=== PATIENT | female | born 1940 | race African-American/Black ===

== ENCOUNTER → 2017-04-17 | Outpatient (CLI) | payer MEDICARE ==
--- NOTE | 2017-04-18 08:42 | MM ---
Reason for exam: screening (asymptomatic). Last mammogram was performed 1 year and 1 month ago. History: Patient is postmenopausal and has history of other cancer at age 74. Family history of breast cancer in maternal cousin at age 68. Took hormonal contraceptives for 7 years beginning at age 21. MG Screening Mammo w CAD Bilateral CC and MLO view(s) were taken. Prior study comparison: March 21, 2016, bilateral MG screening mammo w CAD. March 20, 2015, bilateral MG screening mammo w CAD. March 18, 2014, bilateral MG screening mammo w CAD. There are scattered fibroglandular densities. Finding #1: There is a 5 mm circumscribed round mass in the outer quadrant, middle position of the left breast. Finding #2: There are few typically benign round calcifications in both breasts. New finding since March 21, 2016, March 20, 2015, and March 18, 2014. ASSESSMENT: Incomplete: need additional imaging evaluation, BI-RAD 0 RECOMMENDATION: Special view mammogram and ultrasound of the left breast. [facility] will attempt to contact patient to return for supplemental views and ultrasound.
== END | disposition home or self-care (01) ==
LOC: RADMAMWWP 07:34
PROVIDERS: ATTEND Family Medicine
DX: Z12.31 Encounter for screening mammogram for malignant neoplasm of breast (principal)

== ENCOUNTER → 2017-04-19 | Outpatient (CLI) | payer MEDICARE ==
--- NOTE | 2017-04-19 09:38 | MM ---
Reason for exam: additional evaluation requested from abnormal screening. Last mammogram was performed less than 1 month ago. History: Patient is postmenopausal and has history of other cancer at age 74. Family history of breast cancer in maternal cousin at age 68. Took hormonal contraceptives for 7 years beginning at age 21. Physical Findings: Nurse did not find any significant physical abnormalities on exam. MG Work Up Mamm w CAD LT CC, MLO, ML, and spot compression CC view(s) were taken of the left breast. Prior study comparison: April 17, 2017, bilateral MG screening mammo w CAD. March 21, 2016, bilateral MG screening mammo w CAD. March 20, 2015, bilateral MG screening mammo w CAD. Finding: There is a 5-6 mm circumscribed round mass in the upper outer quadrant, middle position of the left breast. These results were verbally communicated with the patient and result sheet given to the patient on 04/19/17. ASSESSMENT: Incomplete: need additional imaging evaluation, BI-RAD 0 RECOMMENDATION: Ultrasound of the left breast.
--- NOTE | 2017-04-21 08:58 | USB ---
Reason for exam: additional evaluation requested from abnormal screening. History: Patient is postmenopausal and has history of other cancer at age 74. Family history of breast cancer in maternal cousin at age 68. Took hormonal contraceptives for 7 years beginning at age 21. US Breast Workup Limited LT Left breast ultrasound demonstrates no cystic or solid lesion seen. These results were verbally communicated with the patient and result sheet given to the patient on 04/19/17. ASSESSMENT: Probably benign, BI-RAD 3 RECOMMENDATION: Follow-up diagnostic mammogram of the left breast in 6 months.
== END | disposition home or self-care (01) ==
LOC: RADMAMWWP 08:08
PROVIDERS: ATTEND Family Medicine
DX: R92.8 Other abnormal and inconclusive findings on diagnostic imaging of breast (principal)
CPT/HCPCS: 76642; G0206

== ENCOUNTER → 2017-10-18 | Outpatient (CLI) | payer MEDICARE ==
--- NOTE | 2017-10-18 08:49 | MM ---
Reason for exam: follow-up at short interval from prior study. Last mammogram was performed 6 months ago. History: Patient is postmenopausal and has history of other cancer at age 74. Family history of breast cancer in maternal cousin at age 68. Took hormonal contraceptives for 7 years beginning at age 21. Physical Findings: Nurse did not find any significant physical abnormalities on exam. MG Diagnostic Mammo LT w CAD CC and MLO view(s) were taken of the left breast. Prior study comparison: April 19, 2017, left breast MG work up mamm w CAD LT. April 17, 2017, bilateral MG screening mammo w CAD. There are scattered fibroglandular densities. Previous circumscribed mass upper outer quadrant has resolved, probably a cyst that has involuted. Subareolar asymmetric density stable from 2014. These results were verbally communicated with the patient and result sheet given to the patient on 10/18/17. ASSESSMENT: Benign, BI-RAD 2 RECOMMENDATION: Return to routine screening mammogram schedule for both breasts. Back on schedule.
== END | disposition home or self-care (01) ==
LOC: RADMAMWWP 08:08
PROVIDERS: ATTEND Family Medicine
DX: R92.8 Other abnormal and inconclusive findings on diagnostic imaging of breast (principal)
CPT/HCPCS: 77065

== ENCOUNTER → 2018-04-20 | Outpatient (CLI) | payer MEDICARE ==
--- NOTE | 2018-04-20 10:13 | CT ---
EXAMINATION TYPE: CT ChestAbdPelvis w con DATE OF EXAM: 04/20/2018 COMPARISON: 12/30/2015 HISTORY: Restaging of Endometrial CA CT DLP: 1125.8 mGycm CONTRAST: CT scan of the chest, abdomen and pelvis is performed with Oral Contrast and with IV Contrast, patien t injected with 80 mL of Isovue 300. CT Chest: LUNGS: The lungs are clear and free of infiltrate or atelectasis. No pulmonary nodule or mass is det ected. No pleural effusion or CT evidence of interstitial lung disease. MEDIASTINUM: Thoracic aorta is of normal caliber. The heart is not enlarged. No evidence for media stinal mass or adenopathy. HILAR STRUCTURES: No evidence for mass. No hilar adenopathy is appreciated. OTHER: No significant abnormality. CONTRAST CT ABDOMEN AND PELVIS FINDINGS: LIVER/GB: Mild hepatic steatosis. No calcified gallstones. No space occupying hepatic lesion. Bili lorne tree is of normal caliber. PANCREAS: No inflammation. No distinct mass. SPLEEN: No splenic enlargement. No lesion seen. ADRENALS: No nodule. No thickening. KIDNEYS/BLADDER: No hydronephrosis. No nephrolithiasis. No disctinct renal mass. BOWEL: Normal appendix. Normal bowel caliber. No inflammation. GENITAL ORGANS: Hysterectomy changes noted. No evidence for recurrent or residual mass. Vaginal cuff appears unremarkable. LYMPH NODES: No greater than 1cm abdominal or pelvic lymph nodes are appreciated. AORTA: No significant abnormality. OSSEOUS STRUCTURES: No significant abnormality is seen. OTHER: No significant additional abnormality is seen. IMPRESSION: 1. No evidence for metastatic disease. 2. Fatty liver.
== END ==
LOC: RADCTMAIN 07:39
PROVIDERS: ATTEND Obstetrics & Gynecology
DX: C54.1 Malignant neoplasm of endometrium (principal); K76.0 Fatty (change of) liver, not elsewhere classified
CPT/HCPCS: 82565; 84520; 71260; 74177; 36415; Q9967

== ENCOUNTER → 2018-07-20 | Outpatient (CLI) | payer MEDICARE ==
--- NOTE | 2018-07-24 09:32 | MM ---
Reason for exam: screening (asymptomatic). Last mammogram was performed 9 months ago. History: Patient is postmenopausal and has history of other cancer at age 74. Family history of breast cancer in maternal cousin at age 68. Took hormonal contraceptives for 7 years beginning at age 21. Physical Findings: A clinical breast exam by your physician is recommended on an annual basis and results should be correlated with mammographic findings. MG Screening Mammo w CAD Bilateral CC and MLO view(s) were taken. Prior study comparison: October 18, 2017, left breast MG diagnostic mammo LT w CAD. April 19, 2017, left breast MG work up mamm w CAD LT. There are scattered fibroglandular densities. No significant changes when compared with prior studies. ASSESSMENT: Negative, BI-RAD 1 RECOMMENDATION: Routine screening mammogram of both breasts in 1 year.
== END | disposition home or self-care (01) ==
LOC: RADMAMWWP 13:35
PROVIDERS: ATTEND Family Medicine
DX: Z12.31 Encounter for screening mammogram for malignant neoplasm of breast (principal)
CPT/HCPCS: 77067

== ENCOUNTER 2019-04-13 07:24 | Emergency (ER) | payer MEDICARE ==
[2019-04-13 07:32] VITALS: TEMP 97.7
[2019-04-13] MEDS ORDERED: SODIUM CHLORIDE 0.9% 500 ML 500 ML IV ONE (07:50)
[2019-04-13] MEDS ORDERED: SODIUM CHLORIDE 0.9% 500 ML 500 ML IV STA (07:50)
[2019-04-13] MEDS ORDERED: MECLIZINE 12.5 MG TAB PO STA (07:50)
--- NOTE | 2019-04-13 07:57 | ED ---
General Adult HPI - General Chief complaint: Dizziness Stated complaint: Dizziness Time Seen by Provider: 04/13/19 07:27 Source: patient, RN notes reviewed, old records reviewed Mode of arrival: wheelchair Limitations: no limitations - History of Present Illness Initial comments: 78-year-old female past medical history of hypertension presenting for noni luation of lightheadedness and dizziness. Patient states she woke this morning at approximately 6 AM she stood from bed feeling lightheaded, denies room spinning sensation. She does have previous history of vertigo states this is dissimilar. She denies associated nausea vomiting. No change in appetite or intake. She denies chest pain or dyspnea. She denies palpitations. She denies focal numbness or weakness. Denies vision changes. Denies any abdominal pain. - Related Data Home Medications Medication Instructions Recorded Confirmed Ascorbic Acid [Vitamin C] 500 mg PO DAILY 02/23/15 02/11/18 Atenolol/Chlorthalidone 1 tab PO DAILY 02/23/15 02/11/18 [Atenolol-Chlorthalidone 100-25] Ginkgo 1 tab PO DAILY 02/23/15 02/11/18 Vitamin B-12 1 tab PO DAILY 02/23/15 02/11/18 Atorvastatin [Lipitor] 40 mg PO HS 02/11/18 02/11/18 Cholecalciferol [Vitamin D3] 1,000 unit PO DAILY 02/11/18 02/11/18 Ubidecarenone [Co Q-10] 100 mg PO DAILY 02/11/18 02/11/18 Previous Rx's Medication Instructions Recorded Ibuprofen [Motrin] 600 mg PO Q6HR PRN #40 tab 02/24/15 Meclizine [Antivert] 25 mg PO TID PRN #21 tab 04/13/19 Allergies Allergy/AdvReac Type Severity Reaction Status Date / Time Penicillins Allergy Rash/Hives Verified 04/13/19 07:28 Review of Systems ROS Statement: Those systems with pertinent positive or pertinent negative responses have been documented in the HPI. ROS Other: All systems not noted in ROS Statement are negative. Constitutional: Denies: fever, chills Eyes: Denies: vision change ENT: Denies: ear pain, congestion Respiratory: Denies: dyspnea Cardiovascular: Denies: chest pain Gastrointestinal: Denies: abdominal pain, nausea, vomiting Neurological: Denies: headache, numbness, paresthesias Past Medical History Past Medical History: Hypertension, Osteoarthritis (OA) Additional Past Medical History / Comment(s): Bursitis in right shoulder , OA in the Left knee History of Any Multi-Drug Resistant Organisms: None Reported Past Surgical History: Hysterectomy, Tubal Ligation Past Anesthesia/Blood Transfusion Reactions: No Reported Reaction Past Psychological History: Anxiety Smoking Status: Never smoker Past Alcohol Use History: Occasional Past Drug Use History: None Reported - Past Family History Mother Additional Family Medical History / Comment(s): PNA, TB Father Family Medical History: No Reported History General Exam Limitations: no limitations General appearance: alert, in no apparent distress Head exam: Present: atraumatic, normocephalic Eye exam: Present: normal appearance, PERRL, EOMI ENT exam: Present: mucous membranes moist Neck exam: Present: normal inspection. Absent: tenderness, meningismus Respiratory exam: Present: normal lung sounds bilaterally. Absent: respiratory distress, wheezes, rales Cardiovascular Exam: Present: regular rate, normal rhythm, normal heart sounds GI/Abdominal exam: Present: soft. Absent: distended, tenderness, guarding Extremities exam: Present: normal inspection, normal capillary refill. Absent: pedal edema Neurological exam: Present: alert, oriented X3, CN II-XII intact, other (Normal [id number], normal finger to nose bilaterally.). Absent: motor sensory deficit Psychiatric exam: Present: normal affect, normal mood Course Vital Signs 04/13/19 04/13/19 04/13/19 07:28 07:40 08:00 Temperature 97.7 F Pulse Rate 97 92 Respiratory 18 30 H 15 Rate Blood Pressure 158/85 166/77 O2 Sat by Pulse 99 98 Oximetry 04/13/19 08:30 Temperature Pulse Rate 78 Respiratory 10 L Rate Blood Pressure 166/77 O2 Sat by Pulse 97 Oximetry - Reevaluation(s) Reevaluation #1: 04/13/19 09:03 Patient reevaluated, resting comfortably, asymptomatic no complaints. EKG Findings - EKG Comments: EKG Findings:: EKG: Normal sinus rhythm, rate of 92, CA interval 160, QRS duration 98, QTC 469, no ST segment elevation or depression. Medical Decision Making - Medical Decision Making 78-year-old female with an episode of lightheadedness. Patient did describe slight positional component suggestive of vertigo, symptoms resolved at the time my initial evaluation. She has previous history of vertigo although states this was somewhat different. No chest pain or palpitations. No focal numbness or weakness. EKG is normal sinus rhythm. Laboratory studies reveal normal CBC, normal electrolytes, mild creatinine elevation of 1.16 otherwise unremarkable laboratory testing. Head CT is obtained, shows age-related changes with no acute process. Chest x-ray showing left lung atelectasis, no concern for pneumonia or any additional acute process at this time. Patient feels better and remains asymptomatic while in the emergency department. Will be prescribed Antivert, encouraged to maintain oral hydration, return with worsening or changing symptoms. - Lab Data Result diagrams: 04/13/19 07:55 04/13/19 07:55 Lab Results 04/13/19 04/13/19 04/13/19 Range/Units 07:55 07:55 07:55 WBC 4.9 (3.8-10.6) k/uL RBC 4.16 (3.80-5.40) m/uL Hgb 11.8 (11.4-16.0) gm/dL Hct 36.4 (34.0-46.0) % MCV 87.4 (80.0-100.0) fL MCH 28.3 (25.0-35.0) pg MCHC 32.4 (31.0-37.0) g/dL RDW 13.5 (11.5-15.5) % Plt Count 238 (150-450) k/uL Neutrophils % 53 % Lymphocytes % 37 % Monocytes % 5 % Eosinophils % 2 % Basophils % 1 % Neutrophils # 2.6 (1.3-7.7) k/uL Lymphocytes # 1.8 (1.0-4.8) k/uL Monocytes # 0.3 (0-1.0) k/uL Eosinophils # 0.1 (0-0.7) k/uL Basophils # 0.0 (0-0.2) k/uL PT 10.9 (9.0-12.0) sec INR 1.0 (<1.2) Sodium 142 (137-145) mmol/L Potassium 4.0 (3.5-5.1) mmol/L Chloride 105 (98-107) mmol/L Carbon Dioxide 26 (22-30) mmol/L Anion Gap 11 mmol/L BUN 25 H (7-17) mg/dL Creatinine 1.16 H (0.52-1.04) mg/dL Est GFR (CKD-EPI)AfAm 53 (>60 ml/min/1.73 sqM) Est GFR (CKD-EPI)NonAf 46 (>60 ml/min/1.73 sqM) Glucose 139 H (74-99) mg/dL Calcium 9.8 (8.4-10.2) mg/dL Total Bilirubin 0.4 (0.2-1.3) mg/dL AST 22 (14-36) U/L ALT 14 (9-52) U/L Alkaline Phosphatase 67 (38-126) U/L Troponin I (0.000-0.034) ng/mL Total Protein 8.2 (6.3-8.2) g/dL Albumin 4.4 (3.5-5.0) g/dL 04/13/19 Range/Units 07:55 WBC (3.8-10.6) k/uL RBC (3.80-5.40) m/uL Hgb (11.4-16.0) gm/dL Hct (34.0-46.0) % MCV (80.0-100.0) fL MCH (25.0-35.0) pg MCHC (31.0-37.0) g/dL RDW (11.5-15.5) % Plt Count (150-450) k/uL Neutrophils % % Lymphocytes % % Monocytes % % Eosinophils % % Basophils % % Neutrophils # (1.3-7.7) k/uL Lymphocytes # (1.0-4.8) k/uL Monocytes # (0-1.0) k/uL Eosinophils # (0-0.7) k/uL Basophils # (0-0.2) k/uL PT (9.0-12.0) sec INR (<1.2) Sodium (137-145) mmol/L Potassium (3.5-5.1) mmol/L Chloride (98-107) mmol/L Carbon Dioxide (22-30) mmol/L Anion Gap mmol/L BUN (7-17) mg/dL Creatinine (0.52-1.04) mg/dL Est GFR (CKD-EPI)AfAm (>60 ml/min/1.73 sqM) Est GFR (CKD-EPI)NonAf (>60 ml/min/1.73 sqM) Glucose (74-99) mg/dL Calcium (8.4-10.2) mg/dL Total Bilirubin (0.2-1.3) mg/dL AST (14-36) U/L ALT (9-52) U/L Alkaline Phosphatase (38-126) U/L Troponin I <0.012 (0.000-0.034) ng/mL Total Protein (6.3-8.2) g/dL Albumin (3.5-5.0) g/dL Disposition Clinical Impression: Dehydration, Vertigo Disposition: HOME SELF-CARE Condition: Good Instructions (If sedation given, give patient instructions): Dizziness (ED), Vertigo (ED) Prescriptions: Meclizine [Antivert] 25 mg PO TID PRN #21 tab PRN Reason: Vertigo Is patient prescribed a controlled substance at d/c from ED?: No Referrals: Solo Hernandez MD [Primary Care Provider] - 1-2 days Time of Disposition: 09:05
[2019-04-13 08:23] LABS: Basophils % (A) 1 %; Eosinophils # (A) 0.1 k/uL (0-0.7); Eosinophils % (A) 2 %; HCT 36.4 % (34.0-46.0); HGB 11.8 gm/dL (11.4-16.0); Lymphocytes # (A) 1.8 k/uL (1.0-4.8); Lymphocytes % (A) 37 %; MCH 28.3 pg (25.0-35.0); MCHC 32.4 g/dL (31.0-37.0); MCV 87.4 fL (80.0-100.0); Monocytes # (A) 0.3 k/uL (0-1.0); Monocytes % (A) 5 %; Neutrophils # (A) 2.6 k/uL (1.3-7.7); Neutrophils % (A) 53 %; Platelet Count 238 k/uL (150-450); RBC 4.16 m/uL (3.80-5.40); RDW 13.5 % (11.5-15.5); WBC 4.9 k/uL (3.8-10.6)
[2019-04-13 08:31] LABS: Prothrombin Time 10.9 sec (9.0-12.0)
[2019-04-13 08:36] LABS: Albumin 4.4 g/dL (3.5-5.0); Calcium 9.8 mg/dL (8.4-10.2); Total Bilirubin 0.4 mg/dL (0.2-1.3); Total Protein 8.2 g/dL (6.3-8.2)
--- NOTE | 2019-04-13 08:37 | CT ---
EXAMINATION TYPE: CT brain wo con DATE OF EXAM: 04/13/2019 COMPARISON: Previous study dated 02/11/2010. HISTORY: Dizziness today CT DLP: 1113.4 mGycm Automated exposure control for dose reduction was used. FINDINGS: There is physiologic calcification of basal ganglia. Central structures are midline. There is no evidence of hydrocephalus. No acute focal lesion, mass ef fect or midline shift is seen. I do not see evidence of intracranial blood. There is vascular calcification. Visualized portions of the paranasal sinuses and mastoids are clear. The bony calvarium is intact. IMPRESSION: 1. NO ACUTE INTRACRANIAL ABNORMALITY. 2. DEGENERATIVE CHANGE. 3. VASCULAR CALCIFICATION.
--- NOTE | 2019-04-13 08:39 | XR ---
EXAMINATION TYPE: XR chest 2V DATE OF EXAM: 04/13/2019 HISTORY: near sycope. REFERENCE: Previous study dated 02/10/2018. FINDINGS: There is some scarring at the left lung base. Visualized portions of the lungs are otherwis e clear. Pleural space are clear. The heart is not enlarged. IMPRESSION: SCARRING VERSUS CHRONIC ATELECTASIS, LEFT LUNG BASE.
[2019-04-13 10:01] VITALS: BP 139/79; PULSE 76; RESP 18
== END 2019-04-13 09:42 | disposition home or self-care (01) ==
LOC: EC 07:24
DX: E86.0 Dehydration (principal); R42 Dizziness and giddiness; J98.11 Atelectasis; I10 Essential (primary) hypertension; F41.9 Anxiety disorder, unspecified; Z79.899 Other long term (current) drug therapy; Z88.0 Allergy status to penicillin
CPT/HCPCS: 36415; 70450; 71046; 80053; 84484; 85025; 85610; 93005; 96360; 99285

== ENCOUNTER 2023-04-08 12:21 | Emergency (ER) | payer MEDICARE ==
[2023-04-08 12:41] VITALS: TEMP 98.3
--- NOTE | 2023-04-08 12:51 | ED ---
General Adult HPI - General Chief complaint: Recheck/Abnormal Lab/Rx Stated complaint: light headed Time Seen by Provider: 04/08/23 12:35 Source: patient, RN notes reviewed, old records reviewed Mode of arrival: ambulatory Limitations: no limitations - History of Present Illness Initial comments: This is an 82-year-old female presents emergency department stating that over the last month she's become more more fatigued. Patient states she also has be en told her hemoglobin is been low. Patient states she wants commit to get a second opinion because she continues to have these symptoms and the progressive. Patient also states she's noticed lately that her hands are very cold during the day but not at night. She doesn't want a cold there is no pain in the hands no discoloration of the hands or fingers. Patient denies any recent fever chills per patient denies any difficulty breathing shortness of breath per patient denies any chest pain. Patient denies lightheadedness but states occasionally she is a little dizzy and she does have a history of vertigo. Patient denies any abdominal pain patient denies nausea - Related Data Home Medications Medication Instructions Recorded Confirmed Atenolol/Chlorthalidone 1 tab PO DAILY PRN 02/23/15 04/08/23 [Atenolol-Chlorthalidone 100-25] Ascorbic Acid [Vitamin C] 1,000 mg PO DAILY 04/08/23 04/08/23 Cholecalciferol [Vitamin D3 (25 25 mcg PO DAILY 04/08/23 04/08/23 Mcg = 1000 Iu)] Cyanocobalamin (Vitamin B-12) 1,000 mcg PO DAILY 04/08/23 04/08/23 [Vitamin B-12] Floradix Supplement 10 ml PO DAILY 04/08/23 Allergies Allergy/AdvReac Type Severity Reaction Status Date / Time Penicillins Allergy Rash/Hives/ Verified 04/08/23 12:58 Swelling Review of Systems ROS Statement: Those systems with pertinent positive or pertinent negative responses have been documented in the HPI. ROS Other: All systems not noted in ROS Statement are negative. Past Medical History Past Medical History: Hypertension, Osteoarthritis (OA) Additional Past Medical History / Comment(s): Bursitis in right shoulder , OA in the Left knee History of Any Multi-Drug Resistant Organisms: None Reported Past Surgical History: Hysterectomy, Tubal Ligation Past Anesthesia/Blood Transfusion Reactions: No Reported Reaction Past Psychological History: Anxiety Past Alcohol Use History: Occasional Past Drug Use History: None Reported - Past Family History Mother Additional Family Medical History / Comment(s): PNA, TB Father Family Medical History: No Reported History General Exam - General Exam Comments Initial Comments: GENERAL: Patient is well-developed and well-nourished. Patient is nontoxic and well- hydrated and is in no acute distress. ENT: Neck is soft and supple. No significant lymphadenopathy is noted. Oropharynx is clear. Moist mucous membranes. Neck has full range of motion without eliciting any pain. EYES: The sclera were anicteric and conjunctiva were pink and moist. Extraocular movements were intact and pupils were equal round and reactive to light. Eye lids were unremarkable. PULMONARY: Unlabored respirations. Good breath sounds bilaterally. No audible rales rhonchi or wheezing was noted. CARDIOVASCULAR: There is a regular rate and rhythm without any murmurs gallops or rubs. ABDOMEN: Soft and nontender with normal bowel sounds. SKIN: Skin is clear with no lesions or rashes and otherwise unremarkable. NEUROLOGIC: Patient is alert and oriented x3. Cranial nerves II through XII are grossly intact. Motor and sensory are also intact. Normal speech, volume and content. Symmetrical smile. MUSCULOSKELETAL: Normal extremities with adequate strength and full range of motion. No lower extremity swelling or edema. No calf tenderness. Patient has good radial pulses bilaterally LYMPHATICS: No significant lymphadenopathy is noted PSYCHIATRIC: Normal psychiatric evaluation. Limitations: no limitations Course Vital Signs 04/08/23 04/08/23 04/08/23 12:29 13:55 14:00 Temperature 98.3 F Pulse Rate 91 74 78 Respiratory 16 18 10 L Rate Blood Pressure 179/79 136/79 136/79 O2 Sat by Pulse 99 99 100 Oximetry 04/08/23 15:00 Temperature Pulse Rate 72 Respiratory 14 Rate Blood Pressure 155/68 O2 Sat by Pulse 99 Oximetry Medical Decision Making - Medical Decision Making EKG was interpreted by myself. EKG shows a sinus rhythm at 70 bpm NV interval 101 QRS is 92 QT interval 370 QTC is 404. Patient's EKG shows no ST segment elevation or depression Was pt. sent in by a medical professional or institution (, PA, RESIDENT PROGRAMS ASSISTANT, urgent care, hospital, or usp...) When possible be specific @ -No Did you speak to anyone other than the patient for history (EMS, parent, family, police, friend...)? What history was obtained from this source @ -No Did you review nursing and triage notes (agree or disagree)? Why? @ -I reviewed and agree with nursing and triage notes Were old charts reviewed (outside hosp., previous admission, EMS record, old EKG, old radiological studies, urgent care reports/EKG's, usp records)? Report findings @ -I reviewed old charts and old lab work on this patient Differential Diagnosis (chest pain, altered mental status, abdominal pain women, abdominal pain men, vaginal bleeding, weakness, fever, dyspnea, syncope, headache, dizziness, GI bleed, back pain, seizure, CVA, palpatations, mental health, musculoskeletal)? @ -Differential Weakness: Hypoglycemia, shock, sepsis, hyponatremia, anemia, infection, [place], ETOH, adverse medicine reaction, overdose, stroke, this is not meant to be an all-inclusive list. EKG interpreted by me (3pts min.). @ -As above X-rays interpreted by me (1pt min.). @ -None done CT interpreted by me (1pt min.). @ -None done U/S interpreted by me (1pt. min.). @ -None done What testing was considered but not performed or refused? (CT, X-rays, U/S, labs)? Why? @ -None What meds were considered but not given or refused? Why? @ -None Did you discuss the management of the patient with other professionals (professionals i.e. , PA, RESIDENT PROGRAMS ASSISTANT, lab, RT, psych nurse, clinical social work aide, dredge mate, teacher, seismology technical officer, case packer and sealer)? Give summary @ -No Was smoking cessation discussed for >3mins.? @ -No Was critical care preformed (if so, how long)? @ -No Were there social determinants of health that impacted care today? How? (Homelessness, low income, unemployed, alcoholism, drug addiction, transportation, low edu. Level, literacy, decrease access to med. care, custodial, rehab)? @ -No Was there de-escalation of care discussed even if they declined (Discuss DNR or withdrawal of care, Hospice)? DNR status @ -No What co-morbidities impacted this encounter? (DM, HTN, Smoking, COPD, CAD, Cancer, CVA, ARF, Chemo, Hep., AIDS, mental health diagnosis, sleep apnea, morbid obesity)? @ -None Was patient admitted / discharged? Hospital course, mention meds given and route, prescriptions, significant lab abnormalities, going to OR and other pertinent info. @ -I evaluated the patient I ordered labwork all of which was normal. Patient was able to get up ambulate walk around the ER without problem she's never any d istress. Patient continued to complain about her cold hands however he told she'll follow-up with primary medical care doctor because she had good cap refill and good pulses and good sensation no swelling no redness and at this time we did not have specific answers to why they were always cold. Patient was also worried that her hemoglobin was low are testing showed it was within normal range Undiagnosed new problem with uncertain prognosis? @ -No Drug Therapy requiring intensive monitoring for toxicity (Heparin, Nitro, Insulin, Cardizem)? @ -No Were any procedures done? @ -No Diagnosis/symptom? @ -Weakness Acute, or Chronic, or Acute on Chronic? @ -Acute Uncomplicated (without systemic symptoms) or Complicated (systemic symptoms)? @ -Uncomplicated Side effects of treatment? @ -No Exacerbation, Progression, or Severe Exacerbation? @ -No Poses a threat to life or bodily function? How? (Chest pain, USA, [place], pneumonia, PE, COPD, DKA, ARF, appy, cholecystitis, CVA, Diverticulitis, Homicidal, Suicidal, threat to staff... and all critical care pts) @ -No - Lab Data Result diagrams: 04/08/23 12:51 04/08/23 12:51 Lab Results 04/08/23 04/08/23 04/08/23 Range/Units 12:51 12:51 12:51 WBC 6.1 (3.8-10.6) k/uL RBC 4.04 (3.80-5.40) m/uL Hgb 11.6 (11.4-16.0) gm/dL Hct 35.7 (34.0-46.0) % MCV 88.4 (80.0-100.0) fL MCH 28.8 (25.0-35.0) pg MCHC 32.5 (31.0-37.0) g/dL RDW 13.7 (11.5-15.5) % Plt Count 275 (150-450) k/uL MPV 7.6 Neutrophils % 54 % Lymphocytes % 35 % Monocytes % 6 % Eosinophils % 2 % Basophils % 1 % Neutrophils # 3.3 (1.3-7.7) k/uL Lymphocytes # 2.1 (1.0-4.8) k/uL Monocytes # 0.4 (0-1.0) k/uL Eosinophils # 0.1 (0-0.7) k/uL Basophils # 0.0 (0-0.2) k/uL Sodium 136 L (137-145) mmol/L Potassium 4.3 (3.5-5.1) mmol/L Chloride 101 (98-107) mmol/L Carbon Dioxide 25 (22-30) mmol/L Anion Gap 10 mmol/L BUN 20 H (7-17) mg/dL Creatinine 0.92 (0.52-1.04) mg/dL Est GFR (CKD-EPI)AfAm 68 (>60 ml/min/1.73 sqM) Est GFR (CKD-EPI)NonAf 59 (>60 ml/min/1.73 sqM) Glucose 170 H (74-99) mg/dL Calcium 9.7 (8.4-10.2) mg/dL Magnesium 2.0 (1.6-2.3) mg/dL Total Bilirubin 0.4 (0.2-1.3) mg/dL AST 26 (14-36) U/L ALT 16 (4-34) U/L Alkaline Phosphatase 56 (38-126) U/L Total Protein 8.2 (6.3-8.2) g/dL Albumin 4.5 (3.5-5.0) g/dL TSH 0.942 (0.465-4.680) mIU/L Urine Color Yellow Urine Appearance Clear (Clear) Urine pH 5.0 (5.0-8.0) Ur Specific [place] 1.019 (1.001-1.035) Urine Protein Trace H (Negative) Urine Glucose (UA) Negative (Negative) Urine Ketones Negative (Negative) Urine Blood Negative (Negative) Urine Nitrite Negative (Negative) Urine Bilirubin Negative (Negative) Urine Urobilinogen <2.0 (<2.0) mg/dL Ur Leukocyte Esterase Negative (Negative) Coronavirus (PCR) (Not Detectd) 04/08/23 Range/Units 12:55 WBC (3.8-10.6) k/uL RBC (3.80-5.40) m/uL Hgb (11.4-16.0) gm/dL Hct (34.0-46.0) % MCV (80.0-100.0) fL MCH (25.0-35.0) pg MCHC (31.0-37.0) g/dL RDW (11.5-15.5) % Plt Count (150-450) k/uL MPV Neutrophils % % Lymphocytes % % Monocytes % % Eosinophils % % Basophils % % Neutrophils # (1.3-7.7) k/uL Lymphocytes # (1.0-4.8) k/uL Monocytes # (0-1.0) k/uL Eosinophils # (0-0.7) k/uL Basophils # (0-0.2) k/uL Sodium (137-145) mmol/L Potassium (3.5-5.1) mmol/L Chloride (98-107) mmol/L Carbon Dioxide (22-30) mmol/L Anion Gap mmol/L BUN (7-17) mg/dL Creatinine (0.52-1.04) mg/dL Est GFR (CKD-EPI)AfAm (>60 ml/min/1.73 sqM) Est GFR (CKD-EPI)NonAf (>60 ml/min/1.73 sqM) Glucose (74-99) mg/dL Calcium (8.4-10.2) mg/dL Magnesium (1.6-2.3) mg/dL Total Bilirubin (0.2-1.3) mg/dL AST (14-36) U/L ALT (4-34) U/L Alkaline Phosphatase (38-126) U/L Total Protein (6.3-8.2) g/dL Albumin (3.5-5.0) g/dL TSH (0.465-4.680) mIU/L Urine Color Urine Appearance (Clear) Urine pH (5.0-8.0) Ur Specific [place] (1.001-1.035) Urine Protein (Negative) Urine Glucose (UA) (Negative) Urine Ketones (Negative) Urine Blood (Negative) Urine Nitrite (Negative) Urine Bilirubin (Negative) Urine Urobilinogen (<2.0) mg/dL Ur Leukocyte Esterase (Negative) Coronavirus (PCR) Not Detected (Not Detectd) Disposition Clinical Impression: Weakness Disposition: HOME SELF-CARE Is patient prescribed a controlled substance at d/c from ED?: No Referrals: Solo Hernandez MD [Primary Care Provider] - 1-2 days
[2023-04-08 13:24] LABS: Basophils % (A) 1 %; Eosinophils # (A) 0.1 k/uL (0-0.7); Eosinophils % (A) 2 %; HCT 35.7 % (34.0-46.0); HGB 11.6 gm/dL (11.4-16.0); Lymphocytes # (A) 2.1 k/uL (1.0-4.8); Lymphocytes % (A) 35 %; MCH 28.8 pg (25.0-35.0); MCHC 32.5 g/dL (31.0-37.0); MCV 88.4 fL (80.0-100.0); Mean Platelet Volume 7.6; Monocytes # (A) 0.4 k/uL (0-1.0); Monocytes % (A) 6 %; Neutrophils # (A) 3.3 k/uL (1.3-7.7); Neutrophils % (A) 54 %; Platelet Count 275 k/uL (150-450); RBC 4.04 m/uL (3.80-5.40); RDW 13.7 % (11.5-15.5); WBC 6.1 k/uL (3.8-10.6)
[2023-04-08 13:40] LABS: ALT 16 U/L (4-34); AST 26 U/L (14-36); African American GFR (CKD) 68 (>60 ml/min/1.73 sqM); Albumin 4.5 g/dL (3.5-5.0); Alkaline Phosphatase 56 U/L (38-126); Anion Gap 10 mmol/L; Blood Urea Nitrogen 20 mg/dL (7-17); Calcium 9.7 mg/dL (8.4-10.2); Carbon Dioxide 25 mmol/L (22-30); Chloride 101 mmol/L (98-107); Glucose 170 mg/dL (74-99); Non-African American GFR(CKD) 59 (>60 ml/min/1.73 sqM); Potassium 4.3 mmol/L (3.5-5.1); Sodium 136 mmol/L (137-145); Total Bilirubin 0.4 mg/dL (0.2-1.3); Total Protein 8.2 g/dL (6.3-8.2)
[2023-04-08 15:24] VITALS: BP 155/68; PULSE 72; RESP 14
[2023-04-08 15:49] LABS: Appearance,Urine Clear (Clear); Bilirubin,Urine Negative (Negative); Blood,Urine Negative (Negative); Color,Urine Yellow; Glucose,Urine (UA) Negative (Negative); Ketones,Urine Negative (Negative); Leukocyte Esterase,Urine Negative (Negative); Nitrite,Urine Negative (Negative); Protein,Urine Trace (Negative); Specific Gravity,Urine 1.019 (1.001-1.035); Urobilinogen,Urine <2.0 mg/dL (<2.0)
== END 2023-04-08 15:11 | disposition home or self-care (01) ==
LOC: EC 12:21
DX: R53.1 Weakness (principal); I10 Essential (primary) hypertension; Z86.59 Personal history of other mental and behavioral disorders; Z20.822 Contact with and (suspected) exposure to COVID-19; Z79.899 Other long term (current) drug therapy; Z88.0 Allergy status to penicillin
CPT/HCPCS: 36415; 80053; 81003; 83735; 84443; 85025; 87635; 93005; 99284

== ENCOUNTER 2023-05-17 11:43 | Emergency (ER) | payer MEDICARE ==
--- NOTE | 2023-05-17 12:32 | ED ---
General Adult HPI - General Chief complaint: Dizziness Stated complaint: dizzy has anemia Time Seen by Provider: 05/17/23 12:05 Source: patient, RN notes reviewed, old records reviewed Mode of arrival: ambulatory Limitations: no limitations - History of Present Illness Initial comments: This is an 82-year-old female presents emergency Department complaining that over the last few months she's been getting more more tired and fatigued she was told she was anemic and was seen in the emergency department recently. Patient states that she was recently told she was anemic as her hemoglobin was in the 10 range. Patient denies any blood per rectum. Patient states she is feeling fine as long she is lying down which gets up and moves around she feels more fatigued. Patient states this occasionally she feels a little lightheaded. Patient denies any headache patient is chest pain or palpitations. Patient has any difficulty breathing shortness of breath per patient denies any fever chills. Patient denies abdominal pain patient denies nausea or diarrhea - Related Data Home Medications Medication Instructions Recorded Confirmed Atenolol/Chlorthalidone 1 tab PO DAILY PRN 02/23/15 05/17/23 [Atenolol-Chlorthalidone 100-25] Ascorbic Acid [Vitamin C] 1,000 mg PO DAILY 04/08/23 05/17/23 Cholecalciferol [Vitamin D3 (25 25 mcg PO DAILY 04/08/23 05/17/23 Mcg = 1000 Iu)] Cyanocobalamin (Vitamin B-12) 1,000 mcg PO DAILY 04/08/23 05/17/23 [Vitamin B-12] Floradix Supplement 10 ml PO DAILY 04/08/23 05/17/23 Ferrous Sulfate [Iron (65 MG 325 mg PO Q2D 05/17/23 05/17/23 Elemental)] Allergies Allergy/AdvReac Type Severity Reaction Status Date / Time Penicillins Allergy Rash/Hives/ Verified 05/17/23 14:01 Swelling Review of Systems ROS Statement: Those systems with pertinent positive or pertinent negative responses have been documented in the HPI. ROS Other: All systems not noted in ROS Statement are negative. Past Medical History Past Medical History: Hypertension, Osteoarthritis (OA) Additional Past Medical History / Comment(s): Bursitis in right shoulder , OA in the Left knee History of Any Multi-Drug Resistant Organisms: None Reported Past Surgical History: Hysterectomy, Tubal Ligation Past Anesthesia/Blood Transfusion Reactions: No Reported Reaction Past Psychological History: Anxiety Smoking Status: Never smoker Past Alcohol Use History: Occasional Past Drug Use History: None Reported - Past Family History Mother Additional Family Medical History / Comment(s): PNA, TB Father Family Medical History: No Reported History General Exam - General Exam Comments Initial Comments: GENERAL: Patient is well-developed and well-nourished. Patient is nontoxic and well-hyd rated and is in no acute distress. ENT: Neck is soft and supple. No significant lymphadenopathy is noted. Oropharynx is clear. Moist mucous membranes. Neck has full range of motion without elicit ing any pain. EYES: The sclera were anicteric and conjunctiva were pink and moist. Extraocular m ovements were intact and pupils were equal round and reactive to light. Eyelids were unremarkable. PULMONARY: Unlabored respirations. Good breath sounds bilaterally. No audible rales rhonchi or wheezing was noted. CARDIOVASCULAR: There is a regular rate and rhythm without any murmurs gallops or rubs. ABDOMEN: Soft and nontender with normal bowel sounds. SKIN: Skin is clear with no lesions or rashes and otherwise unremarkable. NEUROLOGIC: Patient is alert and oriented x3. Cranial nerves II through XII are grossly intact. Motor and sensory are also intact. Normal speech, volume and content. Symmetrical smile. MUSCULOSKELETAL: Normal extremities with adequate strength and full range of motion. LYMPHATICS: No significant lymphadenopathy is noted PSYCHIATRIC: Normal psychiatric evaluation. Limitations: no limitations Course Vital Signs 05/17/23 05/17/23 05/17/23 11:58 12:20 12:30 Temperature 98.2 F Pulse Rate 79 65 71 Respiratory 20 9 L 14 Rate Blood Pressure 161/80 158/103 160/92 O2 Sat by Pulse 97 99 98 Oximetry 05/17/23 05/17/23 13:00 13:30 Temperature Pulse Rate 60 61 Respiratory 14 16 Rate Blood Pressure 137/72 143/70 O2 Sat by Pulse 99 98 Oximetry Medical Decision Making - Medical Decision Making EKG was interpreted by myself. EKG shows a sinus rhythm at 73 bpm IA interval i s 184 QRS is 92 QT interval 383 QTC is 49. Patient's EKG shows no ST segment elevation or depression Was pt. sent in by a medical professional or institution (, PA, CENTRAL PROCESSING TECH, urgent c are, hospital, or senior living...) When possible be specific @ -No Did you speak to anyone other than the patient for history (EMS, parent, family, police, friend...)? What history was obtained from this source @ -No Did you review nursing and triage notes (agree or disagree)? Why? @ -I reviewed and agree with nursing and triage notes Were old charts reviewed (outside hosp., previous admission, EMS record, old EKG, old radiological studies, urgent care reports/EKG's, senior living records)? Report findings @ -I reviewed prior charts in prior lab work on this patient Differential Diagnosis (chest pain, altered mental status, abdominal pain women, abdominal pain men, vaginal bleeding, weakness, fever, dyspnea, syncope, headache, dizziness, GI bleed, back pain, seizure, CVA, palpatations, mental health, musculoskeletal)? @ -Differential Weakness: Hypoglycemia, shock, sepsis, hyponatremia, anemia, infection, [place], ETOH, adverse medicine reaction, overdose, stroke, this is not meant to be an all-inclusive list. EKG interpreted by me (3pts min.). @ -As above X-rays interpreted by me (1pt min.). @ -None done CT interpreted by me (1pt min.). @ -None done U/S interpreted by me (1pt. min.). @ -None done What testing was considered but not performed or refused? (CT, X-rays, U/S, labs)? Why? @ -None What meds were considered but not given or refused? Why? @ -None Did you discuss the management of the patient with other professionals (professionals i.e. , PA, CENTRAL PROCESSING TECH, lab, RT, psych nurse, social work professor, chief physical therapist, teacher, transit police officer, shelter case manager)? Give summary @ -No Was smoking cessation discussed for >3mins.? @ -No Was critical care preformed (if so, how long)? @ -No Were there social determinants of health that impacted care today? How? (Homeles sness, low income, unemployed, alcoholism, drug addiction, transportation, low edu. Level, literacy, decrease access to med. care, prison, rehab)? @ -No Was there de-escalation of care discussed even if they declined (Discuss DNR or withdrawal of care, Hospice)? DNR status @ -No What co-morbidities impacted this encounter? (DM, HTN, Smoking, COPD, CAD, Cancer, CVA, ARF, Chemo, Hep., AIDS, mental health diagnosis, sleep apnea, morbid obesity)? @ -None Was patient admitted / discharged? Hospital course, mention meds given and route, prescriptions, significant lab abnormalities, going to OR and other pertinent info. @ -I work was within normal range. Patient was happy to see that she was not anemic. Patient thinks it has something to do with her depression secondary to losing her just 2 years ago yesterday. Undiagnosed new problem with uncertain prognosis? @ -No Drug Therapy requiring intensive monitoring for toxicity (Heparin, Nitro, Insulin, Cardizem)? @ -No Were any procedures done? @ -No Diagnosis/symptom? @ -Fatigue Acute, or Chronic, or Acute on Chronic? @ -Acute Uncomplicated (without systemic symptoms) or Complicated (systemic symptoms)? @ -Complicated Side effects of treatment? @ -No Exacerbation, Progression, or Severe Exacerbation? @ -No Poses a threat to life or bodily function? How? (Chest pain, USA, [place], pneumonia, PE, COPD, DKA, ARF, appy, cholecystitis, CVA, Diverticulitis, Homicidal, Suicidal, threat to staff... and all critical care pts) @ -No - Lab Data Result diagrams: 05/17/23 12:43 05/17/23 12:43 Lab Results 05/17/23 05/17/23 05/17/23 Range/Units 12:15 12:43 12:43 WBC 4.7 (3.8-10.6) k/uL RBC 4.20 (3.80-5.40) m/uL Hgb 11.9 (11.4-16.0) gm/dL Hct 37.0 (34.0-46.0) % MCV 88.0 (80.0-100.0) fL MCH 28.3 (25.0-35.0) pg MCHC 32.2 (31.0-37.0) g/dL RDW 14.1 (11.5-15.5) % Plt Count 281 (150-450) k/uL MPV 8.3 Neutrophils % 46 % Lymphocytes % 41 % Monocytes % 7 % Eosinophils % 3 % Basophils % 1 % Neutrophils # 2.1 (1.3-7.7) k/uL Lymphocytes # 1.9 (1.0-4.8) k/uL Monocytes # 0.3 (0-1.0) k/uL Eosinophils # 0.1 (0-0.7) k/uL Basophils # 0.0 (0-0.2) k/uL Sodium (137-145) mmol/L Potassium (3.5-5.1) mmol/L Chloride (98-107) mmol/L Carbon Dioxide (22-30) mmol/L Anion Gap mmol/L BUN (7-17) mg/dL Creatinine (0.52-1.04) mg/dL Est GFR (CKD-EPI)AfAm (>60 ml/min/1.73 sqM) Est GFR (CKD-EPI)NonAf (>60 ml/min/1.73 sqM) Glucose (74-99) mg/dL Calcium (8.4-10.2) mg/dL Magnesium (1.6-2.3) mg/dL Total Bilirubin (0.2-1.3) mg/dL AST (14-36) U/L ALT (4-34) U/L Alkaline Phosphatase (38-126) U/L Total Protein (6.3-8.2) g/dL Albumin (3.5-5.0) g/dL Urine Color Urine Appearance (Clear) Urine pH (5.0-8.0) Ur Specific [place] (1.001-1.035) Urine Protein (Negative) Urine Glucose (UA) (Negative) Urine Ketones (Negative) Urine Blood (Negative) Urine Nitrite (Negative) Urine Bilirubin (Negative) Urine Urobilinogen (<2.0) mg/dL Ur Leukocyte Esterase (Negative) Stool Occult Blood Negative (Negative) Blood Type O Positive Blood Type Recheck O Pos Bld Type Recheck Status No Antibody Screen NEGATIVE Spec Expiration Date 05/20/2023 - 231405/17/23 05/17/23 Range/Units 12:43 12:43 WBC (3.8-10.6) k/uL RBC (3.80-5.40) m/uL Hgb (11.4-16.0) gm/dL Hct (34.0-46.0) % MCV (80.0-100.0) fL MCH (25.0-35.0) pg MCHC (31.0-37.0) g/dL RDW (11.5-15.5) % Plt Count (150-450) k/uL MPV Neutrophils % % Lymphocytes % % Monocytes % % Eosinophils % % Basophils % % Neutrophils # (1.3-7.7) k/uL Lymphocytes # (1.0-4.8) k/uL Monocytes # (0-1.0) k/uL Eosinophils # (0-0.7) k/uL Basophils # (0-0.2) k/uL Sodium 137 (137-145) mmol/L Potassium 4.2 (3.5-5.1) mmol/L Chloride 101 (98-107) mmol/L Carbon Dioxide 23 (22-30) mmol/L Anion Gap 13 mmol/L BUN 19 H (7-17) mg/dL Creatinine 0.88 (0.52-1.04) mg/dL Est GFR (CKD-EPI)AfAm 72 (>60 ml/min/1.73 sqM) Est GFR (CKD-EPI)NonAf 62 (>60 ml/min/1.73 sqM) Glucose 107 H (74-99) mg/dL Calcium 10.0 (8.4-10.2) mg/dL Magnesium 1.9 (1.6-2.3) mg/dL Total Bilirubin 0.5 (0.2-1.3) mg/dL AST 25 (14-36) U/L ALT 15 (4-34) U/L Alkaline Phosphatase 72 (38-126) U/L Total Protein 8.4 H (6.3-8.2) g/dL Albumin 4.5 (3.5-5.0) g/dL Urine Color Yellow Urine Appearance Clear (Clear) Urine pH 6.5 (5.0-8.0) Ur Specific [place] 1.015 (1.001-1.035) Urine Protein Negative (Negative) Urine Glucose (UA) Negative (Negative) Urine Ketones Negative (Negative) Urine Blood Negative (Negative) Urine Nitrite Negative (Negative) Urine Bilirubin Negative (Negative) Urine Urobilinogen 0.2 (<2.0) mg/dL Ur Leukocyte Esterase Negative (Negative) Stool Occult Blood (Negative) Blood Type Blood Type Recheck Bld Type Recheck Status Antibody Screen Spec Expiration Date Disposition Clinical Impression: Fatigue Disposition: HOME SELF-CARE Condition: Good Instructions (If sedation given, give patient instructions): Fatigue (ED) Is patient prescribed a controlled substance at d/c from ED?: No Referrals: Solo Hernandez MD [Primary Care Provider] - 1-2 days Time of Disposition: 14:59
[2023-05-17 13:07] LABS: Basophils % (A) 1 %; Eosinophils # (A) 0.1 k/uL (0-0.7); Eosinophils % (A) 3 %; HGB 11.9 gm/dL (11.4-16.0); Lymphocytes # (A) 1.9 k/uL (1.0-4.8); Lymphocytes % (A) 41 %; MCH 28.3 pg (25.0-35.0); MCHC 32.2 g/dL (31.0-37.0); Mean Platelet Volume 8.3; Monocytes # (A) 0.3 k/uL (0-1.0); Monocytes % (A) 7 %; Neutrophils # (A) 2.1 k/uL (1.3-7.7); Neutrophils % (A) 46 %; Platelet Count 281 k/uL (150-450); RDW 14.1 % (11.5-15.5); WBC 4.7 k/uL (3.8-10.6)
[2023-05-17 13:17] LABS: ALT 15 U/L (4-34); AST 25 U/L (14-36); African American GFR (CKD) 72 (>60 ml/min/1.73 sqM); Albumin 4.5 g/dL (3.5-5.0); Alkaline Phosphatase 72 U/L (38-126); Anion Gap 13 mmol/L; Blood Urea Nitrogen 19 mg/dL (7-17); Carbon Dioxide 23 mmol/L (22-30); Chloride 101 mmol/L (98-107); Glucose 107 mg/dL (74-99); Magnesium 1.9 mg/dL (1.6-2.3); Non-African American GFR(CKD) 62 (>60 ml/min/1.73 sqM); Potassium 4.2 mmol/L (3.5-5.1); Sodium 137 mmol/L (137-145); Total Bilirubin 0.5 mg/dL (0.2-1.3); Total Protein 8.4 g/dL (6.3-8.2)
[2023-05-17 14:14] LABS: Appearance,Urine Clear (Clear); Bilirubin,Urine Negative (Negative); Blood,Urine Negative (Negative); Color,Urine Yellow; Glucose,Urine (UA) Negative (Negative); Ketones,Urine Negative (Negative); Leukocyte Esterase,Urine Negative (Negative); Nitrite,Urine Negative (Negative); PH, Urine 6.5 (5.0-8.0); Protein,Urine Negative (Negative); Specific Gravity,Urine 1.015 (1.001-1.035); Urobilinogen,Urine 0.2 mg/dL (<2.0)
[2023-05-17 14:34] VITALS: PULSE 61; RESP 16
[2023-05-17 15:27] VITALS: BP 131/68
[2023-05-17 15:28] VITALS: TEMP 98.7
== END 2023-05-17 15:10 | disposition home or self-care (01) ==
LOC: EC 11:43
DX: R53.83 Other fatigue (principal); D64.9 Anemia, unspecified; I10 Essential (primary) hypertension; M17.12 Unilateral primary osteoarthritis, left knee; F41.9 Anxiety disorder, unspecified; Z88.0 Allergy status to penicillin; Z79.899 Other long term (current) drug therapy
CPT/HCPCS: 36415; 80053; 81003; 82272; 83735; 85025; 86850; 86900; 86901; 93005; 99284

== ENCOUNTER 2023-05-18 09:35 | Inpatient (IN) | payer MEDICARE ==
--- NOTE | 2023-05-18 10:35 | ED ---
GI Bleed HPI - General Source: patient Mode of arrival: ambulatory Limitations: no limitations <Selena Foley - Last Filed: 05/18/23 13:50> <Amos Hogan - Last Filed: 05/18/23 18:49> - General Chief complaint: GI Bleed Stated complaint: blood in diarrhea Time Seen by Provider: 05/18/23 10:07 - History of Present Illness Initial comments: The patient is a 82-year-old female presents emergency room accompanied by her son for GI bleed. Patient states that she thought she was having a bowel movement this morning and it was soft with blood in it. She denies any significant pain. Denies any recent antibiotics. Patient states she has felt very weak and fatigue over the last several weeks. She complains of cold fingers and just does not feel quite like herself. She feels as though she needs an infusion of some sort to feel better. (Selena Foley) This is an 82-year-old female presents to the emergency department today stating that she had an episode of. Watery stools this morning and it was very dark she was concerned that she had a GI bleed. Patient states she was in the emergency department yesterday and all the lab work came back normal. Patient also complains of cold hands which she's been stating his been going on for a couple of months now. Patient denies any shortness of breath or difficulty breathing. Patient denies any chest pain or shortness of breath. Patient states she does occasionally feel lightheaded or dizzy. (Amos Hogan) - Related Data Home Medications Medication Instructions Recorded Confirmed Atenolol/Chlorthalidone 1 tab PO DAILY PRN 02/23/15 05/18/23 [Atenolol-Chlorthalidone 100-25] Ascorbic Acid [Vitamin C] 1,000 mg PO DAILY 04/08/23 05/18/23 Cholecalciferol [Vitamin D3 (25 25 mcg PO DAILY 04/08/23 05/18/23 Mcg = 1000 Iu)] Cyanocobalamin (Vitamin B-12) 1,000 mcg PO DAILY 04/08/23 05/18/23 [Vitamin B-12] Floradix Supplement 10 ml PO DAILY 04/08/23 05/18/23 Ferrous Sulfate [Iron (65 MG 325 mg PO Q2D 05/17/23 05/18/23 Elemental)] Calcium Carbonate [Calcium] 600 mg PO DAILY 05/18/23 05/18/23 Folic Acid 0.4 mg PO DAILY 05/18/23 05/18/23 Ginkgo Biloba [place] Extract [Ginkgo 125 mg PO DAILY 05/18/23 05/18/23 Biloba] Allergies Allergy/AdvReac Type Severity Reaction Status Date / Time Penicillins Allergy Rash/Hives/ Verified 05/18/23 09:57 Swelling Review of Systems ROS Other: All systems not noted in ROS Statement are negative. <Selena Foley - Last Filed: 05/18/23 13:50> ROS Other: All systems not noted in ROS Statement are negative. <Amos Hogan - Last Filed: 05/18/23 18:49> ROS Statement: Those systems with pertinent positive or pertinent negative responses have been documented in the HPI. Past Medical History Past Medical History: Hypertension, Osteoarthritis (OA) Additional Past Medical History / Comment(s): Bursitis in right shoulder , OA in the Left knee History of Any Multi-Drug Resistant Organisms: None Reported Past Surgical History: Hysterectomy, Tubal Ligation Past Anesthesia/Blood Transfusion Reactions: No Reported Reaction Past Psychological History: Anxiety Smoking Status: Never smoker Past Alcohol Use History: None Reported Past Drug Use History: None Reported - Past Family History Mother Additional Family Medical History / Comment(s): PNA, TB Father Family Medical History: No Reported History <Selena Foley - Last Filed: 05/18/23 13:50> General Exam Limitations: no limitations <Selena Foley - Last Filed: 05/18/23 13:50> <Amos Hogan - Last Filed: 05/18/23 18:49> - General Exam Comments Initial Comments: Visual Physical Exam Vital signs reviewed General: Well-appearing, nontoxic, no acute distress. Head: Normocephalic, atraumatic Eyes: PERRLA, EOMI ENT: Airway patent Chest: Nonlabored breathing Skin: No visual rash, normal skin tone Neuro: Alert and oriented 3 Musculoskeletal: No gross abnormalities (Selena Foley) GENERAL: Patient is well-developed and well-nourished. Patient is nontoxic and well- hydrated and is in no acute distress. ENT: Neck is soft and supple. No significant lymphadenopathy is noted. Oropharynx is clear. Moist mucous membranes. Neck has full range of motion without eliciting any pain. EYES: The sclera were anicteric and conjunctiva were pink and moist. Extraocular movements were intact and pupils were equal round and reactive to light. Eyelids were unremarkable. PULMONARY: Unlabored respirations. Good breath sounds bilaterally. No audible rales rho nchi or wheezing was noted. CARDIOVASCULAR: There is a regular rate and rhythm without any murmurs gallops or rubs. ABDOMEN: Soft and nontender with normal bowel sounds. SKIN: Skin is clear with no lesions or rashes and otherwise unremarkable. NEUROLOGIC: Patient is alert and oriented x3. Cranial nerves II through XII are grossly intact. Motor and sensory are also intact. Normal speech, volume and content. Symmetrical smile. MUSCULOSKELETAL: Normal extremities with adequate strength and full range of motion. LYMPHATICS: No significant lymphadenopathy is noted PSYCHIATRIC: Normal psychiatric evaluation. (Amos Hogan) Course Vital Signs 05/18/23 05/18/23 09:52 16:31 Temperature 97.6 F Pulse Rate 100 Pulse Rate [ 89 Sitting] Pulse Rate [ 89 Standing] Pulse Rate [ 85 Supine] Respiratory 18 16 Rate Blood Pressure 124/51 Blood Pressure 142/77 [Sitting] Blood Pressure 137/74 [Standing] Blood Pressure 139/67 [Supine] O2 Sat by Pulse 100 100 Oximetry Medical Decision Making - Lab Data Result diagrams: 05/18/23 11:00 05/18/23 11:00 <Selena Foley - Last Filed: 05/18/23 13:50> - Lab Data Result diagrams: 05/18/23 11:00 05/18/23 17:07 <Amos Hogan - Last Filed: 05/18/23 18:49> - Medical Decision Making Quick note portion completed by myself, electronically signed KENNY Snow. (Selena Foley) Was pt. sent in by a medical professional or institution (Dr. PA, CHEMICAL RADIATION TECHNICIAN, urgent care, hospital, or correction...) When possible be specific @ - No Did you speak to anyone other than the patient for history (EMS, parent, family, police, friend...)? What history was obtained from this source @ -No Did you review nursing and triage notes (agree or disagree)? Why? @ -I reviewed and agree with nursing and triage notes Were old charts reviewed (outside hosp., previous admission, EMS record, old EKG, old radiological studies, urgent care reports/EKG's, correction records)? Report findings @ -I reviewed prior lab work from prior charts of this patient Differential Diagnosis (chest pain, altered mental status, abdominal pain women, abdominal pain men, vaginal bleeding, weakness, fever, dyspnea, syncope, headache, dizziness, GI bleed, back pain, seizure, CVA, palpatations, mental health, musculoskeletal)? @ -not applicable EKG interpreted by me (3pts min.). @ -As above X-rays interpreted by me (1pt min.). @ -None done CT interpreted by me (1pt min.). @ -None done U/S interpreted by me (1pt. min.). @ -None done What testing was considered but not performed or refused? (CT, X-rays, U/S, labs)? Why? @ -None What meds were considered but not given or refused? Why? @ -None Did you discuss the management of the patient with other professionals (professionals i.e. , PA, CHEMICAL RADIATION TECHNICIAN, lab, RT, psych nurse, social media campaign manager, green coffee blender, teacher, electronic warfare officer, correctional counselor/case manager)? Give summary @ -I spoke with Dr. Teresa and he agreed to admit the patient Was smoking cessation discussed for >3mins.? @ -No Was critical care preformed (if so, how long)? @ -No Were there social determinants of health that impacted care today? How? (Homelessness, low income, unemployed, alcoholism, drug addiction, transportation, low edu. Level, literacy, decrease access to med. care, half-way, rehab)? @ -No Was there de-escalation of care discussed even if they declined (Discuss DNR or withdrawal of care, Hospice)? DNR status @ -No What co-morbidities impacted this encounter? (DM, HTN, Smoking, COPD, CAD, Cancer, CVA, ARF, Chemo, Hep., AIDS, mental health diagnosis, sleep apnea, morbid obesity)? @ -None Was patient admitted / discharged? Hospital course, mention meds given and route, prescriptions, significant lab abnormalities, going to OR and other pertinent info. @ -Patient admitted occult stool done again today which was again negative. Patient's lab work showed the patient to be somewhat dehydrated. I gave the patient a liter of normal saline and then repeated Panel her dehydration improved. Patient had no bouts of diarrhea while in the emergency department. I spoke with Dr. Teresa and he agreed to admit the patient follow-up lab work.. Undiagnosed new problem with uncertain prognosis? @ -No Drug Therapy requiring intensive monitoring for toxicity (Heparin, Nitro, Insulin, Cardizem)? @ -No Were any procedures done? @ -No Diagnosis/symptom? @ -Diarrhea Acute, or Chronic, or Acute on Chronic? @ -Acute Uncomplicated (without systemic symptoms) or Complicated (systemic symptoms)? @ -Uncomplicated Side effects of treatment? @ -No Exacerbation, Progression, or Severe Exacerbation? @ -No Poses a threat to life or bodily function? How? (Chest pain, USA, NH, pneumonia, PE, COPD, DKA, ARF, appy, cholecystitis, CVA, Diverticulitis, Homicidal, Suicidal, threat to staff... and all critical care pts) @ -No Diagnosis/symptom? @ -Lightheaded Acute, or Chronic, or Acute on Chronic? @ -Acute Uncomplicated (without systemic symptoms) or Complicated (systemic symptoms)? @ -Uncomplicated Side effects of treatment? @ -none Exacerbation, Progression, or Severe Exacerbation] @ -no Poses a threat to life or bodily function? @ -no (Amos Hogan) - Lab Data Lab Results 05/18/23 05/18/23 05/18/23 Range/Units 11:00 11:00 11:00 WBC 5.9 (3.8-10.6) k/uL RBC 3.88 (3.80-5.40) m/uL Hgb 11.2 L (11.4-16.0) gm/dL Hct 34.2 (34.0-46.0) % MCV 88.2 (80.0-100.0) fL MCH 28.9 (25.0-35.0) pg MCHC 32.7 (31.0-37.0) g/dL RDW 13.9 (11.5-15.5) % Plt Count 265 (150-450) k/uL MPV 7.6 Neutrophils % 62 % Lymphocytes % 30 % Monocytes % 5 % Eosinophils % 2 % Basophils % 1 % Neutrophils # 3.7 (1.3-7.7) k/uL Lymphocytes # 1.8 (1.0-4.8) k/uL Monocytes # 0.3 (0-1.0) k/uL Eosinophils # 0.1 (0-0.7) k/uL Basophils # 0.0 (0-0.2) k/uL PT (10.0-12.5) sec INR (<1.2) APTT (22.0-30.0) sec Sodium 141 (137-145) mmol/L Potassium 4.5 (3.5-5.1) mmol/L Chloride 104 (98-107) mmol/L Carbon Dioxide 25 (22-30) mmol/L Anion Gap 12 mmol/L BUN 29 H (7-17) mg/dL Creatinine 1.40 H (0.52-1.04) mg/dL Est GFR (CKD-EPI)AfAm 41 (>60 ml/min/1.73 sqM) Est GFR (CKD-EPI)NonAf 35 (>60 ml/min/1.73 sqM) Glucose 108 H (74-99) mg/dL Plasma Lactic Acid Jose 1.7 (0.7-2.0) mmol/L Calcium 9.6 (8.4-10.2) mg/dL Magnesium 2.0 (1.6-2.3) mg/dL Total Bilirubin 0.4 (0.2-1.3) mg/dL AST 20 (14-36) U/L ALT 15 (4-34) U/L Alkaline Phosphatase 60 (38-126) U/L Troponin I (0.000-0.034) ng/mL Total Protein 7.4 (6.3-8.2) g/dL Albumin 4.0 (3.5-5.0) g/dL TSH 1.030 (0.465-4.680) mIU/L Urine Color Urine Appearance (Clear) Urine pH (5.0-8.0) Ur Specific [place] (1.001-1.035) Urine Protein (Negative) Urine Glucose (UA) (Negative) Urine Ketones (Negative) Urine Blood (Negative) Urine Nitrite (Negative) Urine Bilirubin (Negative) Urine Urobilinogen (<2.0) mg/dL Ur Leukocyte Esterase (Negative) Stool Occult Blood (Negative) 05/18/23 05/18/23 05/18/23 Range/Units 11:00 11:13 15:18 WBC (3.8-10.6) k/uL RBC (3.80-5.40) m/uL Hgb (11.4-16.0) gm/dL Hct (34.0-46.0) % MCV (80.0-100.0) fL MCH (25.0-35.0) pg MCHC (31.0-37.0) g/dL RDW (11.5-15.5) % Plt Count (150-450) k/uL MPV Neutrophils % % Lymphocytes % % Monocytes % % Eosinophils % % Basophils % % Neutrophils # (1.3-7.7) k/uL Lymphocytes # (1.0-4.8) k/uL Monocytes # (0-1.0) k/uL Eosinophils # (0-0.7) k/uL Basophils # (0-0.2) k/uL PT (10.0-12.5) sec INR (<1.2) APTT (22.0-30.0) sec Sodium (137-145) mmol/L Potassium (3.5-5.1) mmol/L Chloride (98-107) mmol/L Carbon Dioxide (22-30) mmol/L Anion Gap mmol/L BUN (7-17) mg/dL Creatinine (0.52-1.04) mg/dL Est GFR (CKD-EPI)AfAm (>60 ml/min/1.73 sqM) Est GFR (CKD-EPI)NonAf (>60 ml/min/1.73 sqM) Glucose (74-99) mg/dL Plasma Lactic Acid Jose (0.7-2.0) mmol/L Calcium (8.4-10.2) mg/dL Magnesium (1.6-2.3) mg/dL Total Bilirubin (0.2-1.3) mg/dL AST (14-36) U/L ALT (4-34) U/L Alkaline Phosphatase (38-126) U/L Troponin I <0.012 (0.000-0.034) ng/mL Total Protein (6.3-8.2) g/dL Albumin (3.5-5.0) g/dL TSH (0.465-4.680) mIU/L Urine Color Yellow Urine Appearance Slightly Cloudy H (Clear) Urine pH 6.0 (5.0-8.0) Ur Specific [place] 1.025 (1.001-1.035) Urine Protein Negative (Negative) Urine Glucose (UA) Negative (Negative) Urine Ketones Negative (Negative) Urine Blood Negative (Negative) Urine Nitrite Negative (Negative) Urine Bilirubin Negative (Negative) Urine Urobilinogen 0.2 (<2.0) mg/dL Ur Leukocyte Esterase Negative (Negative) Stool Occult Blood Negative (Negative) 05/18/23 05/18/23 Range/Units 16:13 17:07 WBC (3.8-10.6) k/uL RBC (3.80-5.40) m/uL Hgb (11.4-16.0) gm/dL Hct (34.0-46.0) % MCV (80.0-100.0) fL MCH (25.0-35.0) pg MCHC (31.0-37.0) g/dL RDW (11.5-15.5) % Plt Count (150-450) k/uL MPV Neutrophils % % Lymphocytes % % Monocytes % % Eosinophils % % Basophils % % Neutrophils # (1.3-7.7) k/uL Lymphocytes # (1.0-4.8) k/uL Monocytes # (0-1.0) k/uL Eosinophils # (0-0.7) k/uL Basophils # (0-0.2) k/uL PT 11.7 (10.0-12.5) sec INR 1.1 (<1.2) APTT 25.5 (22.0-30.0) sec Sodium 140 (137-145) mmol/L Potassium 4.5 (3.5-5.1) mmol/L Chloride 108 H (98-107) mmol/L Carbon Dioxide 18 L (22-30) mmol/L Anion Gap 14 mmol/L BUN 28 H (7-17) mg/dL Creatinine 1.06 H (0.52-1.04) mg/dL Est GFR (CKD-EPI)AfAm 57 (>60 ml/min/1.73 sqM) Est GFR (CKD-EPI)NonAf 50 (>60 ml/min/1.73 sqM) Glucose 108 H (74-99) mg/dL Plasma Lactic Acid Jose (0.7-2.0) mmol/L Calcium 9.0 (8.4-10.2) mg/dL Magnesium (1.6-2.3) mg/dL Total Bilirubin 0.6 (0.2-1.3) mg/dL AST 33 (14-36) U/L ALT 14 (4-34) U/L Alkaline Phosphatase 60 (38-126) U/L Troponin I (0.000-0.034) ng/mL Total Protein 7.3 (6.3-8.2) g/dL Albumin 3.9 (3.5-5.0) g/dL TSH (0.465-4.680) mIU/L Urine Color Urine Appearance (Clear) Urine pH (5.0-8.0) Ur Specific [place] (1.001-1.035) Urine Protein (Negative) Urine Glucose (UA) (Negative) Urine Ketones (Negative) Urine Blood (Negative) Urine Nitrite (Negative) Urine Bilirubin (Negative) Urine Urobilinogen (<2.0) mg/dL Ur Leukocyte Esterase (Negative) Stool Occult Blood (Negative) Disposition <Selena Foley - Last Filed: 05/18/23 13:50> Time of Disposition: 18:49 <Amos Hogan - Last Filed: 05/18/23 18:49> Clinical Impression: Diarrhea, Lightheaded Disposition: ADMITTED IP TO THIS HOSP Referrals: Solo Hernandez MD [Primary Care Provider] - 1-2 days
[2023-05-18 11:10] LABS: Basophils % (A) 1 %; Eosinophils # (A) 0.1 k/uL (0-0.7); Eosinophils % (A) 2 %; HCT 34.2 % (34.0-46.0); HGB 11.2 gm/dL (11.4-16.0); Lymphocytes # (A) 1.8 k/uL (1.0-4.8); Lymphocytes % (A) 30 %; MCH 28.9 pg (25.0-35.0); MCHC 32.7 g/dL (31.0-37.0); MCV 88.2 fL (80.0-100.0); Mean Platelet Volume 7.6; Monocytes # (A) 0.3 k/uL (0-1.0); Monocytes % (A) 5 %; Neutrophils # (A) 3.7 k/uL (1.3-7.7); Neutrophils % (A) 62 %; Platelet Count 265 k/uL (150-450); RBC 3.88 m/uL (3.80-5.40); RDW 13.9 % (11.5-15.5); WBC 5.9 k/uL (3.8-10.6)
[2023-05-18 11:27] LABS: ALT 15 U/L (4-34); AST 20 U/L (14-36); African American GFR (CKD) 41 (>60 ml/min/1.73 sqM); Alkaline Phosphatase 60 U/L (38-126); Anion Gap 12 mmol/L; Blood Urea Nitrogen 29 mg/dL (7-17); Calcium 9.6 mg/dL (8.4-10.2); Carbon Dioxide 25 mmol/L (22-30); Chloride 104 mmol/L (98-107); Glucose 108 mg/dL (74-99); Non-African American GFR(CKD) 35 (>60 ml/min/1.73 sqM); Potassium 4.5 mmol/L (3.5-5.1); Sodium 141 mmol/L (137-145); Total Bilirubin 0.4 mg/dL (0.2-1.3); Total Protein 7.4 g/dL (6.3-8.2)
[2023-05-18 11:41] LABS: Appearance,Urine Slightly Cloudy (Clear); Bilirubin,Urine Negative (Negative); Blood,Urine Negative (Negative); Color,Urine Yellow; Glucose,Urine (UA) Negative (Negative); Ketones,Urine Negative (Negative); Leukocyte Esterase,Urine Negative (Negative); Nitrite,Urine Negative (Negative); Protein,Urine Negative (Negative); Specific Gravity,Urine 1.025 (1.001-1.035); Urobilinogen,Urine 0.2 mg/dL (<2.0)
[2023-05-18] MEDS ORDERED: SODIUM CHLORIDE 0.9% 1,000 ML IV ONE ×2 (15:21→18:49)
[2023-05-18 16:25] LABS: INR 1.1 (<1.2); Partial Thromboplastin Time 25.5 sec (22.0-30.0); Prothrombin Time 11.7 sec (10.0-12.5)
[2023-05-18 18:00] LABS: ALT 14 U/L (4-34); AST 33 U/L (14-36); African American GFR (CKD) 57 (>60 ml/min/1.73 sqM); Albumin 3.9 g/dL (3.5-5.0); Alkaline Phosphatase 60 U/L (38-126); Anion Gap 14 mmol/L; Blood Urea Nitrogen 28 mg/dL (7-17); Carbon Dioxide 18 mmol/L (22-30); Chloride 108 mmol/L (98-107); Glucose 108 mg/dL (74-99); Non-African American GFR(CKD) 50 (>60 ml/min/1.73 sqM); Sodium 140 mmol/L (137-145); Total Bilirubin 0.6 mg/dL (0.2-1.3); Total Protein 7.3 g/dL (6.3-8.2)
[2023-05-18 18:06] LABS: Potassium 4.5 mmol/L (3.5-5.1)
[2023-05-19 08:53] LABS: Basophils # (A) 0.04 X 10*3/uL (0.00-0.10); Basophils % (A) 0.6 %; Eosinophils # (A) 0.23 X 10*3/uL (0.04-0.35); Eosinophils % (A) 3.7 %; HCT 27.8 % (37.2-46.3); HGB 8.8 g/dL (12.0-15.0); Lymphocytes % (A) 51.2 %; MCH 27.9 pg (27.0-32.0); MCHC 31.7 g/dL (32.0-37.0); MCV 88.3 FL (80.0-97.0); Mean Platelet Volume 10.2 FL (9.5-12.2); Monocytes # (A) 0.54 X 10*3/uL (0.20-1.00); Monocytes % (A) 8.6 %; NRBC Per 100 WBC 0 X 10*3/uL (0.00-0.01); Neutrophils # (A) 2.22 X 10*3/uL (1.80-7.70); Neutrophils % (A) 35.6 %; Platelet Count 236 X 10*3/uL (140-440); RBC 3.15 X 10*6/uL (4.10-5.20); RDW 14.2 % (11.5-14.5); WBC 6.25 X 10*3/uL (4.50-10.00)
[2023-05-19 09:14] LABS: ALT 10 U/L (8-44); AST 13 U/L (13-35); Albumin 3.6 g/dL (3.8-4.9); Albumin/Globulin Ratio 1.44 Ratio (1.60-3.17); Alkaline Phosphatase 51 U/L (41-126); BUN/Creat Ratio 25.78 Ratio (12.00-20.00); Blood Urea Nitrogen 23.2 mg/dL (9.0-27.0); Calcium 9.3 mg/dL (8.7-10.3); Carbon Dioxide 24.3 mmol/L (21.6-31.8); Chloride 110 mmol/L (96-109); Globulin 2.5 g/dL (1.6-3.3); Glucose 109 mg/dL (70-110); Potassium 4.2 mmol/L (3.5-5.5); Sodium 143 mmol/L (135-145); Total Bilirubin 0.2 mg/dL (0.3-1.2); Total Protein 6.1 g/dL (6.2-8.2)
[2023-05-19 10:49] LABS: Partial Thromboplastin Time 24.6 sec (22.0-30.0); Prothrombin Time 11.4 sec (10.0-12.5)
[2023-05-19] MEDS: PANTOPRAZOLE 40 MG/10 ML VIAL IVP SCH ×2 (12:00→20:21)
--- NOTE | 2023-05-19 12:10 | P.GSCN ---
History of Present Illness Consult date: 05/19/23 History of present illness: CHIEF COMPLAINT: GI bleed HISTORY OF PRESENT ILLNESS: This is a 82-year-old female who presented to the hospital with dark stools that started yesterday morning. Patient reports it was a large liquidy stool one episode. She was concerned and came into the ER. Since then she's had 2 smaller dark loose stools this morning. Per nursing st aff there has been some red also noted with the stool. Patient denies being on any blood thinners. She reports she takes Aleve maybe once a week. Hemoglobin on admission was 11 has dropped down to 8.8. Stool for occult blood was negative. She denies any abdominal pain. Denies any nausea or vomiting. Last colonoscopy was about 7 or 8 years ago. She may have had a EGD at that time. Patient reports that she was never told of any abnormal results. PAST MEDICAL HISTORY: See below PAST SURGICAL HISTORY: See below MEDICATIONS: See below ALLERGIES: See below SOCIAL HISTORY: No illicit drug use. REVIEW OF SYSTEMS: CONSTITUTIONAL: Denies fever or chills. HEENT: Denies blurred vision, vision changes, or eye pain. Denies hemoptysis CARDIOVASCULAR: Denies chest pain or pressure. RESPIRATORY: No shortness of breath. GASTROINTESTINAL: See HPI for pertinent findings HEMATOLOGIC: Denies bleeding disorders. GENITOURINARY: Denies any blood in urine or increased urinary frequency. SKIN: Denies pruitis. Denies rash. PHYSICAL EXAM: VITAL SIGNS: Reviewed GENERAL: Well-developed in no acute distress. ABDOMEN: Soft. Nondistended. Nondistended NEUROLOGIC: Alert and oriented. Cranial nerves II through XII grossly intact. LABORATORY DATA: WBC 6.25 Hgb 11.2 down to 8.8 platelets 236 INR 1.0 Sodium 143 potassium 4.2 creatinine 1.06 down to 0.9 Magnesium 2.0 Stool for occult blood negative IMAGING: ASSESSMENT: 1. Acute GI bleed. Possible upper source. Acute blood loss anemia with dark stools PLAN: -Patient scheduled for EGD today with Dr. Pearce -Continue IV Protonix twice a day -Continue monitor hemoglobin -Continue to monitor for any signs or symptoms of bleeding -Continue IV fluids Physician Fagot Maker note has been reviewed by physician. Signing provider agrees with the documented findings, assessment, and plan of care. 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 Past Anesthesia/Blood Transfusion Reactions: No Reported Reaction Past Psychological History: Anxiety Smoking Status: Never smoker Past Alcohol Use History: None Reported Past Drug Use History: None Reported - Past Family History Mother Additional Family Medical History / Comment(s): PNA, TB Father Family Medical History: No Reported History Medications and Allergies Home Medications Medication Instructions Recorded Confirmed Type Atenolol/Chlorthalidone 1 tab PO DAILY PRN 02/23/15 05/18/23 History [Atenolol-Chlorthalidone 100-25] Ascorbic Acid [Vitamin C] 1,000 mg PO DAILY 04/08/23 05/18/23 History Cholecalciferol [Vitamin D3 (25 25 mcg PO DAILY 04/08/23 05/18/23 History Mcg = 1000 Iu)] Cyanocobalamin (Vitamin B-12) 1,000 mcg PO DAILY 04/08/23 05/18/23 History [Vitamin B-12] Floradix Supplement 10 ml PO DAILY 04/08/23 05/18/23 History Ferrous Sulfate [Iron (65 MG 325 mg PO Q2D 05/17/23 05/18/23 History Elemental)] Calcium Carbonate [Calcium] 600 mg PO DAILY 05/18/23 05/18/23 History Folic Acid 0.4 mg PO DAILY 05/18/23 05/18/23 History Ginkgo Biloba [place] Extract [Ginkgo 125 mg PO DAILY 05/18/23 05/18/23 History Biloba] Allergies Allergy/AdvReac Type Severity Reaction Status Date / Time Penicillins Allergy Rash/Hives/ Verified 05/18/23 09:57 Swelling Surgical - Exam Vital Signs Temp Pulse Resp BP Pulse Ox 97.6 F 100 18 124/51 100 05/18/23 09:52 05/18/23 09:52 05/18/23 09:52 05/18/23 09:52 05/18/23 09:52 Results - Labs 05/19/23 05:17 05/19/23 05:17 Abnormal Lab Results - Last 24 Hours (Table) 05/18/23 05/19/23 05/19/23 Range/Units 17:07 05:17 05:17 RBC 3.15 L (4.10-5.20) X 10*6/uL Hgb 8.8 L (12.0-15.0) g/dL Hct 27.8 L (37.2-46.3) % MCHC 31.7 L (32.0-37.0) g/dL Chloride 108 H 110 H (98-107) mmol/L Carbon Dioxide 18 L (22-30) mmol/L BUN 28 H (7-17) mg/dL Creatinine 1.06 H (0.52-1.04) mg/dL BUN/Creatinine Ratio 25.78 H (12.00-20.00) Ratio Glucose 108 H (74-99) mg/dL Total Bilirubin 0.2 L (0.3-1.2) mg/dL Total Protein 6.1 L (6.2-8.2) g/dL Albumin 3.6 L (3.8-4.9) g/dL Albumin/Globulin Ratio 1.44 L (1.60-3.17) Ratio Diabetes panel 05/18/23 05/19/23 Range/Units 17:07 05:17 Sodium 140 143 (137-145) mmol/L Potassium 4.5 4.2 (3.5-5.1) mmol/L Chloride 108 H 110 H (98-107) mmol/L Carbon Dioxide 18 L 24.3 (22-30) mmol/L BUN 28 H 23.2 (7-17) mg/dL Creatinine 1.06 H 0.9 (0.52-1.04) mg/dL Glucose 108 H 109 (74-99) mg/dL Calcium 9.0 9.3 (8.4-10.2) mg/dL AST 33 13 (14-36) U/L ALT 14 10 (4-34) U/L Alkaline Phosphatase 60 51 (38-126) U/L Total Protein 7.3 6.1 L (6.3-8.2) g/dL Albumin 3.9 3.6 L (3.5-5.0) g/dL Calcium panel 05/18/23 05/19/23 Range/Units 17:07 05:17 Calcium 9.0 9.3 (8.4-10.2) mg/dL Albumin 3.9 3.6 L (3.5-5.0) g/dL Pituitary panel 05/18/23 05/19/23 Range/Units 17:07 05:17 Sodium 140 143 (137-145) mmol/L Potassium 4.5 4.2 (3.5-5.1) mmol/L Chloride 108 H 110 H (98-107) mmol/L Carbon Dioxide 18 L 24.3 (22-30) mmol/L BUN 28 H 23.2 (7-17) mg/dL Creatinine 1.06 H 0.9 (0.52-1.04) mg/dL Glucose 108 H 109 (74-99) mg/dL Calcium 9.0 9.3 (8.4-10.2) mg/dL Adrenal panel 05/18/23 05/19/23 Range/Units 17:07 05:17 Sodium 140 143 (137-145) mmol/L Potassium 4.5 4.2 (3.5-5.1) mmol/L Chloride 108 H 110 H (98-107) mmol/L Carbon Dioxide 18 L 24.3 (22-30) mmol/L BUN 28 H 23.2 (7-17) mg/dL Creatinine 1.06 H 0.9 (0.52-1.04) mg/dL Glucose 108 H 109 (74-99) mg/dL Calcium 9.0 9.3 (8.4-10.2) mg/dL Total Bilirubin 0.6 0.2 L (0.2-1.3) mg/dL AST 33 13 (14-36) U/L ALT 14 10 (4-34) U/L Alkaline Phosphatase 60 51 (38-126) U/L Total Protein 7.3 6.1 L (6.3-8.2) g/dL Albumin 3.9 3.6 L (3.5-5.0) g/dL
[2023-05-19] MEDS ORDERED: SODIUM CHLORIDE 0.9% 1,000 ML IV SCH (12:15)
[2023-05-19] MEDS ORDERED: IV FLUID CONTINUATION 800 ML IV ONE ×2 (14:43)
[2023-05-19] MEDS ORDERED: LIDOCAINE 2% (PF) 20 MG/ML 5 ML VIAL ONE (14:44)
[2023-05-19] MEDS ORDERED: PROPOFOL 10 MG/ML 20 ML VIAL IV ONE (14:44)
[2023-05-19] MEDS ORDERED: ESMOLOL 100 MG/10 ML VIAL ONE (14:44)
[2023-05-19 15:35] LABS: HCT 26.8 % (37.2-46.3); HGB 8.6 g/dL (12.0-15.0); MCH 28.3 pg (27.0-32.0); MCHC 32.1 g/dL (32.0-37.0); MCV 88.2 FL (80.0-97.0); Mean Platelet Volume 10.1 FL (9.5-12.2); NRBC Per 100 WBC 0 X 10*3/uL (0.00-0.01); Platelet Count 231 X 10*3/uL (140-440); RBC 3.04 X 10*6/uL (4.10-5.20); WBC 5.14 X 10*3/uL (4.50-10.00)
[2023-05-19] MEDS ORDERED: PEG 3350 (236 GM/BTL) + LYTES 4,000 ML BOTTLE PO ONE (15:38)
[2023-05-19 15:49] LABS: Basophils % (A) 1 %; Eosinophils # (A) 0.1 k/uL (0-0.7); Eosinophils % (A) 1 %; HCT 23.4 % (34.0-46.0); Hypochromasia Slight; Lymphocytes # (A) 1.6 k/uL (1.0-4.8); Lymphocytes % (A) 31 %; MCH 28.4 pg (25.0-35.0); MCHC 31.7 g/dL (31.0-37.0); MCV 89.7 fL (80.0-100.0); Mean Platelet Volume 7.5; Monocytes # (A) 0.2 k/uL (0-1.0); Monocytes % (A) 4 %; Neutrophils # (A) 3.2 k/uL (1.3-7.7); Neutrophils % (A) 62 %; Platelet Count 194 k/uL (150-450); RBC 2.61 m/uL (3.80-5.40); RDW 14.1 % (11.5-15.5); WBC 5.1 k/uL (3.8-10.6)
[2023-05-19 16:12] LABS: HGB 7.4 gm/dL (11.4-16.0)
[2023-05-19] MEDS ORDERED: ACETAMINOPHEN TAB 325 MG TAB PO PRN (17:18)
[2023-05-19] MEDS ORDERED: ONDANSETRON 4 MG/2 ML VIAL IVP PRN (17:18)
[2023-05-19] MEDS ORDERED: NALOXONE 0.4 MG/ML 1 ML VIAL IV PRN (17:18)
[2023-05-19] MEDS ORDERED: LACTATED RINGERS 1,000 ML IV ONE (17:18)
[2023-05-19 21:21] LABS: HCT 21.9 % (34.0-46.0); Hypochromasia Slight; MCH 28.6 pg (25.0-35.0); MCV 89.3 fL (80.0-100.0); Mean Platelet Volume 9.4; Platelet Count 179 k/uL (150-450); RBC 2.45 m/uL (3.80-5.40); RDW 14.4 % (11.5-15.5); WBC 5.4 k/uL (3.8-10.6)
[2023-05-20 03:55] LABS: Basophils % (A) 1 %; Eosinophils # (A) 0.2 k/uL (0-0.7); Eosinophils % (A) 4 %; HCT 25.2 % (34.0-46.0); HGB 8.1 gm/dL (11.4-16.0); Hypochromasia Slight; Lymphocytes # (A) 2.1 k/uL (1.0-4.8); Lymphocytes % (A) 39 %; MCH 28.4 pg (25.0-35.0); MCHC 32.2 g/dL (31.0-37.0); MCV 88.3 fL (80.0-100.0); Mean Platelet Volume 7.6; Monocytes # (A) 0.4 k/uL (0-1.0); Monocytes % (A) 7 %; Neutrophils # (A) 2.5 k/uL (1.3-7.7); Neutrophils % (A) 47 %; Platelet Count 191 k/uL (150-450); RBC 2.85 m/uL (3.80-5.40); RDW 14.5 % (11.5-15.5); WBC 5.4 k/uL (3.8-10.6)
--- NOTE | 2023-05-20 05:11 | PN ---
PROGRESS NOTE DATE OF SERVICE: 05/07/2023 CHIEF COMPLAINT: Dizziness, weakness. HISTORY OF PRESENT ILLNESS: This lady is doing fairly well, but this morning, she feels the toilet with maroon- colored stool. Hemoglobin has gone from 11 to 7. PHYSICAL EXAMINATION: CHEST: Clear. CARDIAC: Normal. ABDOMEN: Soft, nontender. IMPRESSION: Upper gastrointestinal bleed. PLAN: 1. Start Protonix IV. 2. Surgery consult. 3. PTT, and PT/INR. 4. Follow hemoglobins. 5. Surgical referral for endoscopy. MMODL / IJN: [id number] /
--- NOTE | 2023-05-20 06:40 | HP ---
HISTORY AND PHYSICAL CHIEF COMPLAINT: Dizziness. HISTORY OF PRESENT ILLNESS: This is the first known admission for this otherwise healthy 82-year-old white female. She presented to the emergency room with complaints of dizziness and weakness. All of her studies in the ER were unremarkable and etiology could not be determined. She and her son apparently were insisted that she be admitted. She has a history of hypertension, hyperlipidemia, macular degeneration, and renal failure. REVIEW OF SYSTEMS: She denies any headaches, change in vision or hearing, chest pain, shortness of breath, cough, hemoptysis, palpitations, orthopnea, PND, abdominal pain, nausea, vomiting, hematemesis, melena, hematochezia, jaundice, hepatitis, hematuria, frequency, urgency, incontinence, nocturia, renal failure, diabetes, etc. Past medical history, family history, personal and social histories are essentially unremarkable. She is allergic to penicillin and statins. MEDICATIONS: 1. BuSpar. 2. Tenoretic. 3. Vitamin D. 4. Meclizine. SOCIAL HISTORY: She does not smoke or drink. PHYSICAL EXAMINATION: VITAL SIGNS: Blood pressure is 142/88 with a pulse of 84, respirations of 33, and she is afebrile. GENERAL: She appeared to be slightly overweight and in no acute distress. SKIN: Color is normal. Skin is warm, dry. LYMPHATICS: Lymph nodes are not enlarged. HEAD, EARS, EYES, NOSE, MOUTH AND THROAT: Normal. CHEST: Clear. CARDIAC: Normal. ABDOMEN: Soft, nontender, and slightly protuberant. EXTREMITIES: Normal. NEUROLOGICAL: She is intact. ASSESSMENT: She is admitted to the hospital with diagnoses of: 1. Dizziness, etiology unknown. 2. History of hypertension. 3. Macular degeneration. PLAN: 1. Bed rest. 2. IV fluids. 3. Telemetry. 4. Frequent monitoring of vital signs and neurologic status. MMODL / IJN: [id number] /
[2023-05-20] MEDS ORDERED: PROPOFOL 10 MG/ML 20 ML VIAL IV ONE (06:59)
[2023-05-20] MEDS ORDERED: SODIUM CHLORIDE 0.9% 500 ML 500 ML IV ONE ×2 (07:02)
--- NOTE | 2023-05-20 07:26 | P.PCN ---
Date of Procedure: 05/20/23 Procedure(s) Performed: PREOPERATIVE DIAGNOSIS: GI bleed POSTOPERATIVE DIAGNOSIS: GI bleed, scattered diverticulosis, small colonic polyps PROCEDURE: Colonoscopy ANESTHESIA: MAC SURGEON: Steve Pearce M.D. SPECIMENS: None ENDOSCOPIC PROCEDURE: The patient was placed on the endoscopy table in the left decubitus position. The Olympus colonoscope was inserted into the anus and passed under direct visualization to the base of the cecum. The appendiceal orifice was visualized. From that point the scope was slowly withdrawn inspecting all surfaces carefully. There was noted to be blood throughout the colon with clots. I was unable to visualize all of the mucosal services. No active bleeding was seen. There seemed to be less blood overall in the right colon versus the left however there were large clots in the cecal base. Some of the blood and clots were able to be evacuated. I was able to identify a few small scattered colon polyps each measuring only a few millimeters in size. These were not removed at this time given the active GI bleed. I was unable to intubate the ileocecal valve. The scope was withdrawn. Digital rectal examination was normal. The patient was taken to the recovery room in stable condition per anesthesia guidelines. RECOMMENDATIONS: Begin clear liquid diet. Etiology for source of bleeding unclear. Still could be colonic diverticular however difficult to say with any certainty. We'll order tagged RBC scan. Advise transfer to higher level of care for possible angiography and formal GI consultation. We'll discuss with family.
[2023-05-20 08:03] LABS: HCT 23.6 % (34.0-46.0); HGB 7.6 gm/dL (11.4-16.0); Hypochromasia Slight; MCH 28.5 pg (25.0-35.0); MCHC 32.4 g/dL (31.0-37.0); MCV 87.9 fL (80.0-100.0); Mean Platelet Volume 8.3; Platelet Count 182 k/uL (150-450); RBC 2.68 m/uL (3.80-5.40); RDW 14.7 % (11.5-15.5); WBC 5.2 k/uL (3.8-10.6)
[2023-05-20] MEDS: PANTOPRAZOLE 40 MG/10 ML VIAL IVP SCH ×2 (10:07→20:18)
--- NOTE | 2023-05-20 14:04 | NM ---
EXAMINATION TYPE: NM GI bleeding DATE OF EXAM: 05/20/2023 CLINICAL INDICATION: Female, 82 years old with history of GI bleeding; COMPARISON: CT 04/20/2018 Following administration of 3 ml PYP 23.9 mCi Tc 99m Sodium pertechnetate. Immediate images post inje ction. FINDINGS: Normal tracer activity is seen in the blood pool of the abdominal aorta, common iliac arteries, femor al arteries, liver, and spleen on all of the interval images. Later images show accumulation of trace r in the urinary bladder, which is consistent with excreted tracer. No abnormal tracer uptake is pres ent outside the blood pool that would be consistent with an active GI bleed. IMPRESSION: Negative examination. No evidence of active gastrointestinal bleeding during the initial 1 hr observa tion period.
[2023-05-20 15:51] LABS: HCT 23.9 % (34.0-46.0); HGB 7.7 gm/dL (11.4-16.0); Hypochromasia Slight; MCH 28.6 pg (25.0-35.0); MCHC 32.3 g/dL (31.0-37.0); MCV 88.5 fL (80.0-100.0); Mean Platelet Volume 8.6; Platelet Count 189 k/uL (150-450); RDW 14.7 % (11.5-15.5); WBC 6.7 k/uL (3.8-10.6)
[2023-05-21 00:27] LABS: HCT 21.1 % (34.0-46.0); MCH 28.4 pg (25.0-35.0); MCHC 32.3 g/dL (31.0-37.0); MCV 87.7 fL (80.0-100.0); Mean Platelet Volume 8.1; Platelet Count 172 k/uL (150-450); RDW 14.8 % (11.5-15.5); WBC 6.6 k/uL (3.8-10.6)
[2023-05-21 00:33] LABS: HGB 6.8 gm/dL (11.4-16.0)
[2023-05-21 01:32] LABS: Glucose,Whole Blood 209 mg/dL (70-110)
[2023-05-21 06:31] LABS: HCT 25.7 % (34.0-46.0); MCH 29.4 pg (25.0-35.0); MCHC 33.2 g/dL (31.0-37.0); MCV 88.6 fL (80.0-100.0); Mean Platelet Volume 7.7; Platelet Count 166 k/uL (150-450); RDW 14.2 % (11.5-15.5); WBC 10.3 k/uL (3.8-10.6)
[2023-05-21 06:34] LABS: HGB 8.5 gm/dL (11.4-16.0)
[2023-05-21 06:52] LABS: ALT 14 U/L (4-34); AST 21 U/L (14-36); African American GFR (CKD) 79 (>60 ml/min/1.73 sqM); Alkaline Phosphatase 47 U/L (38-126); Anion Gap 8 mmol/L; Blood Urea Nitrogen 14 mg/dL (7-17); Calcium 8.9 mg/dL (8.4-10.2); Carbon Dioxide 24 mmol/L (22-30); Chloride 107 mmol/L (98-107); Glucose 122 mg/dL (74-99); Non-African American GFR(CKD) 69 (>60 ml/min/1.73 sqM); Potassium 3.9 mmol/L (3.5-5.1); Sodium 139 mmol/L (137-145); Total Bilirubin 0.5 mg/dL (0.2-1.3); Total Protein 5.6 g/dL (6.3-8.2)
[2023-05-21] MEDS: PANTOPRAZOLE 40 MG/10 ML VIAL IVP SCH ×2 (08:50→19:54)
--- NOTE | 2023-05-21 10:25 | P.CNPUL ---
History of Present Illness Consult date: 05/21/23 Requesting physician: Steve Pearce Reason for consult: other (GI bleeding) Chief complaint: Black stools History of present illness: This is an 82-year-old female with no previous history of GI bleeding, no previous history of peptic ulcer disease, patient presented to the ER on 05/18/2023, her chief complaint was mostly noticing large liquidy black stools. Patient was also complaining of weakness and lightheadedness. Upon admission the patient had more episodes of dark loose stools, and last night she was noted to have bloody bowel movements. Patient was seen by Dr. parker on consultation, and supposedly she had EGD, no report of the EGD noted on the chart, she also had a colonoscopy which showed no evidence of active bleeding she had mostly nonspecific diverticular disease, and polyp. Again no active bleeding. Her hemoglobin dropped since admission and the patient required 2 units of packed RBCs since admission. Last night considering the active bleeding noted by the nurses on the medical floor, patient was transferred to the ICU, and I was asked to see her on consultation. Today the patient is relatively asymptomatic except she feels generally weak. Denies any nausea or abdominal pain or vomiting. Hemoglobin this morning is 8.5, it was 6.8 last night, patient did receive 2 units of packed RBCs since admission. Baseline hemoglobin on 05/18 was 11.2. Since her EGD and colonoscopy were both nondiagnostic, patient had a tagged RBC study, and it also came back nondiagnostic. Surgery recommended referral to a tertiary care center since we don't have gastroenterology emotional disabilities teacher. And this is being done at present in the meantime the patient is being closely monitored in the ICU presently the patient is asymptomatic Review of Systems CONSTITUTIONAL: Denies fever or chills. Patient has mostly symptoms of generalized weakness HEENT: Negative. CARDIOVASCULAR: No chest pain or orthopnea or PND RESPIRATORY: Denies cough wheezing or shortness of breath GASTROINTESTINAL: As noted in HPI HEMATOLOGIC: As noted in HPI GENITOURINARY: Negative SKIN: Negative Psychiatric:Denies any symptoms of active depression Neurologic: Feels generally weak and lightheaded. 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 Past Anesthesia/Blood Transfusion Reactions: No Reported Reaction Past Psychological History: Anxiety Smoking Status: Never smoker Past Alcohol Use History: None Reported Past Drug Use History: None Reported - Past Family History Mother Additional Family Medical History / Comment(s): PNA, TB Father Family Medical History: No Reported History Medications and Allergies Home Medications Medication Instructions Recorded Confirmed Type Atenolol/Chlorthalidone 1 tab PO DAILY PRN 02/23/15 05/18/23 History [Atenolol-Chlorthalidone 100-25] Ascorbic Acid [Vitamin C] 1,000 mg PO DAILY 04/08/23 05/18/23 History Cholecalciferol [Vitamin D3 (25 25 mcg PO DAILY 04/08/23 05/18/23 History Mcg = 1000 Iu)] Cyanocobalamin (Vitamin B-12) 1,000 mcg PO DAILY 04/08/23 05/18/23 History [Vitamin B-12] Floradix Supplement 10 ml PO DAILY 04/08/23 05/18/23 History Ferrous Sulfate [Iron (65 MG 325 mg PO Q2D 05/17/23 05/18/23 History Elemental)] Calcium Carbonate [Calcium] 600 mg PO DAILY 05/18/23 05/18/23 History Folic Acid 0.4 mg PO DAILY 05/18/23 05/18/23 History Ginkgo Biloba [place] Extract [Ginkgo 125 mg PO DAILY 05/18/23 05/18/23 History Biloba] Allergies Allergy/AdvReac Type Severity Reaction Status Date / Time Penicillins Allergy Rash/Hives/ Verified 05/18/23 09:57 Swelling Physical Exam Vitals: Vital Signs Temp Pulse Pulse Resp BP BP Pulse Ox 05/21/23 08:00 98.2 F 122 H 15 126/71 94 L 05/21/23 07:30 98 125/82 98 05/21/23 07:00 96 18 127/59 98 05/21/23 06:00 102 H 12 128/59 98 05/21/23 05:00 100 11 L 128/59 96 05/21/23 04:14 98.1 F 101 H 12 115/56 97 05/21/23 04:00 98.1 F 80 13 129/78 97 05/21/23 03:00 99 10 L 111/58 97 05/21/23 02:14 98.2 F 85 14 121/60 97 05/21/23 02:00 101 H 12 103/56 98 05/21/23 01:54 98.1 F 97 12 108/58 99 05/21/23 01:40 98.5 F 109 H 21 126/62 97 05/21/23 00:00 106 H 18 115/69 98 05/20/23 20:00 98 F 99 18 136/74 98 05/20/23 15:03 98.2 F 103 H 18 129/75 98 05/20/23 11:48 98.1 F 103 H 18 131/72 98 Intake and Output 05/20/23 05/21/23 05/21/23 22:59 06:59 14:59 Intake Total 10 330 Output Total 250 0 Balance 10 80 0 Intake: IV 10 Invasive Line 2 10 Blood Product 310 Rc As-1 Unit 310 [id number] Other 20 Rc As-1 Unit 20 [id number] Output: Urine 250 0 Other: Voiding Method Toilet Bedside Commode Physical Exam: Revealed an 82-year-old female in no distress Head: Atraumatic, normocephalic. HEENT:[Neck is supple.] [No neck masses.] [No thyromegaly.] [No JVD.] Chest: [Clear throughout, no crackles, no rhonchi, no wheezes.] Cardiac Exam: [Normal S1 and S2, no S3 gallop, no murmur.] Abdomen: [Soft, nontender, no megaly, no rebound, no guarding, normal bowel sounds.] Extremities: [No clubbing, no edema, no cyanosis.] Neurological Exam: [No focal neurologic deficit.] Psychiatric: Normal mood affect and normal mental status examination. Skin: No rash Results - Laboratory Findings CBC and BMP: 05/21/23 06:14 05/21/23 06:14 PT/INR, D-dimer PT 11.4 sec (10.0-12.5) 05/19/23 10:02 INR 1.0 (<1.2) 05/19/23 10:02 Abnormal lab findings: Abnormal Labs 05/18/23 05/18/23 05/18/23 11:00 11:00 11:13 RBC Hgb 11.2 L Hct MCHC Chloride Carbon Dioxide BUN 29 H Creatinine 1.40 H BUN/Creatinine Ratio Glucose 108 H POC Glucose (mg/dL) Total Bilirubin Total Protein Albumin Albumin/Globulin Ratio Urine Appearance Slightly Cloudy H Crossmatch 05/18/23 05/19/23 05/19/23 17:07 05:17 05:17 RBC 3.15 L Hgb 8.8 L Hct 27.8 L MCHC 31.7 L Chloride 108 H 110 H Carbon Dioxide 18 L BUN 28 H Creatinine 1.06 H BUN/Creatinine Ratio 25.78 H Glucose 108 H POC Glucose (mg/dL) Total Bilirubin 0.2 L Total Protein 6.1 L Albumin 3.6 L Albumin/Globulin Ratio 1.44 L Urine Appearance Crossmatch 05/19/23 05/19/23 05/19/23 11:14 15:28 18:45 RBC 3.04 L 2.61 L Hgb 8.6 L 7.4 L D Hct 26.8 L 23.4 L MCHC Chloride Carbon Dioxide BUN Creatinine BUN/Creatinine Ratio Glucose POC Glucose (mg/dL) Total Bilirubin Total Protein Albumin Albumin/Globulin Ratio Urine Appearance Crossmatch See Detail 05/19/23 05/20/23 05/20/23 21:09 03:04 07:40 RBC 2.45 L 2.85 L 2.68 L Hgb 7.0 L 8.1 L 7.6 L Hct 21.9 L 25.2 L 23.6 L MCHC Chloride Carbon Dioxide BUN Creatinine BUN/Creatinine Ratio Glucose POC Glucose (mg/dL) Total Bilirubin Total Protein Albumin Albumin/Globulin Ratio Urine Appearance Crossmatch 05/20/23 05/21/23 05/21/23 15:42 00:07 01:30 RBC 2.70 L 2.40 L Hgb 7.7 L 6.8 L* Hct 23.9 L 21.1 L MCHC Chloride Carbon Dioxide BUN Creatinine BUN/Creatinine Ratio Glucose POC Glucose (mg/dL) 209 H Total Bilirubin Total Protein Albumin Albumin/Globulin Ratio Urine Appearance Crossmatch 05/21/23 05/21/23 06:14 06:14 RBC 2.90 L Hgb 8.5 L D Hct 25.7 L MCHC Chloride Carbon Dioxide BUN Creatinine BUN/Creatinine Ratio Glucose 122 H POC Glucose (mg/dL) Total Bilirubin Total Protein 5.6 L Albumin 3.0 L Albumin/Globulin Ratio Urine Appearance Crossmatch - Diagnostic Findings Additional studies: Tagged RBC study/GI bleed scan/nuclear medicine scan: Negative for localizing to the site of bleeding. Assessment and Plan Assessment: Impression: Acute GI bleeding possibly upper GI in nature however the patient had negative diagnostic studies so far including EGD, colonoscopy, and tagged RBC study. Acute blood loss anemia, patient received 2 units of packed RBCs since admission Benign essential hypertension Degenerative joint disease Dyslipidemia Recommendation: Continue Protonix Continue to monitor in the ICU Continue serial hemoglobin and hematocrit and transfuse for hemoglobin below 7 Agree with transfer plans to tertiary care center since we have no GI coverage Avoid nonsteroidal anti-inflammatory drugs, patient has taken a leave in the past on the average of once per week. We will continue to follow while in ICU. Time with Patient: Greater than 30
--- NOTE | 2023-05-21 10:35 | P.PN ---
Subjective Progress Note Date: 05/21/23 Principal diagnosis: GI bleed Patient was transferred to the ICU yesterday afternoon. She felt weak and was tachycardic. Hemoglobin was 6.5 and went to 8.5 after 1 unit. Still having some bloody stools however seems to be a bit less per the patient. She does feel better now. Heart rate is 100 currently. Blood pressure been stable. Objective - Vital Signs Vital signs: Vital Signs Temp 98.2 F 05/21/23 08:00 Pulse 122 H 05/21/23 08:00 Resp 15 05/21/23 08:00 BP 126/71 05/21/23 08:00 Pulse Ox 94 L 05/21/23 08:00 FiO2 Intake & Output 05/20/23 05/21/23 05/21/23 18:59 06:59 18:59 Intake Total 220 330 Output Total 250 0 Balance 220 80 0 Intake: IV 220 Invasive Line 2 20 Blood Product 310 Rc As-1 Unit 310 [id number] Other 20 Rc As-1 Unit 20 [id number] Output: Urine 250 0 Other: Voiding Method Toilet Bedside Commode # Voids 4 - Exam Abdomen: Soft, nontender, nondistended - Labs CBC & Chem 7: 05/21/23 06:14 05/21/23 06:14 Labs: Abnormal Lab Results - Last 24 Hours (Table) 05/19/23 05/20/23 05/21/23 Range/Units 18:45 15:42 00:07 RBC 2.70 L 2.40 L (3.80-5.40) m/uL Hgb 7.7 L 6.8 L* (11.4-16.0) gm/dL Hct 23.9 L 21.1 L (34.0-46.0) % Glucose (74-99) mg/dL POC Glucose (mg/dL) (70-110) mg/dL Total Protein (6.3-8.2) g/dL Albumin (3.5-5.0) g/dL Crossmatch See Detail 05/21/23 05/21/23 05/21/23 Range/Units 01:30 06:14 06:14 RBC 2.90 L (3.80-5.40) m/uL Hgb 8.5 L D (11.4-16.0) gm/dL Hct 25.7 L (34.0-46.0) % Glucose 122 H (74-99) mg/dL POC Glucose (mg/dL) 209 H (70-110) mg/dL Total Protein 5.6 L (6.3-8.2) g/dL Albumin 3.0 L (3.5-5.0) g/dL Crossmatch Assessment and Plan (1) GI bleed Narrative/Plan: 82-year-old female with GI bleeding. Recent EGD was normal however colonoscopy showed blood throughout the colon. Tagged RBC scan was obtained and that was normal. Discussed options with family yesterday and again this morning. Still tentatively plan transfer for higher level of care and GI evaluation. Await repeat hemoglobin this morning. Current Visit: Yes Status: Acute Code(s): K92.2 - GASTROINTESTINAL HEMORRHAGE, UNSPECIFIED SNOMED Code(s): 55667299
[2023-05-21 12:13] LABS: HCT 25.2 % (34.0-46.0); HGB 8.4 gm/dL (11.4-16.0); Hypochromasia Slight; MCH 29.5 pg (25.0-35.0); MCHC 33.2 g/dL (31.0-37.0); MCV 88.9 fL (80.0-100.0); Mean Platelet Volume 8.1; Platelet Count 165 k/uL (150-450); RBC 2.84 m/uL (3.80-5.40); RDW 14.4 % (11.5-15.5); WBC 7.9 k/uL (3.8-10.6)
[2023-05-21] MEDS: SODIUM FERRIC GLUCONAT-SUCROSE 125 MG in SODIUM CHLORIDE 0.9% 100 ML IVPB SCH (18:23)
[2023-05-22 00:57] LABS: HCT 22.7 % (34.0-46.0); HGB 7.5 gm/dL (11.4-16.0); MCH 29.2 pg (25.0-35.0); MCHC 33.2 g/dL (31.0-37.0); MCV 88.1 fL (80.0-100.0); Platelet Count 173 k/uL (150-450); RBC 2.58 m/uL (3.80-5.40); RDW 14.6 % (11.5-15.5); WBC 7.1 k/uL (3.8-10.6)
[2023-05-22 03:55] LABS: HCT 22.8 % (34.0-46.0); HGB 7.7 gm/dL (11.4-16.0); MCH 29.7 pg (25.0-35.0); MCHC 33.7 g/dL (31.0-37.0); Mean Platelet Volume 8.8; Platelet Count 171 k/uL (150-450); Poikilocytosis Slight; RBC 2.58 m/uL (3.80-5.40); RDW 14.5 % (11.5-15.5); WBC 7.7 k/uL (3.8-10.6)
[2023-05-22 04:16] LABS: ALT 14 U/L (4-34); AST 23 U/L (14-36); African American GFR (CKD) 70 (>60 ml/min/1.73 sqM); Albumin 2.8 g/dL (3.5-5.0); Alkaline Phosphatase 46 U/L (38-126); Anion Gap 5 mmol/L; Blood Urea Nitrogen 11 mg/dL (7-17); Calcium 8.9 mg/dL (8.4-10.2); Carbon Dioxide 24 mmol/L (22-30); Chloride 110 mmol/L (98-107); Glucose 124 mg/dL (74-99); Non-African American GFR(CKD) 60 (>60 ml/min/1.73 sqM); Potassium 3.8 mmol/L (3.5-5.1); Sodium 139 mmol/L (137-145); Total Bilirubin 0.3 mg/dL (0.2-1.3); Total Protein 5.4 g/dL (6.3-8.2)
[2023-05-22] MEDS ORDERED: Potassium Replacement Protocol 1 EACH MISC MISCELLANE PRN (05:28)
[2023-05-22] MEDS: POTASSIUM CHLORIDE 10 MEQ in WATER FOR INJECTION 1 100ML.BAG IVPB SCH ×2 (06:18→10:13)
[2023-05-22] MEDS: PANTOPRAZOLE 40 MG/10 ML VIAL IVP SCH ×2 (08:05→21:09)
[2023-05-22] MEDS: SODIUM FERRIC GLUCONAT-SUCROSE 125 MG in SODIUM CHLORIDE 0.9% 100 ML IVPB SCH (10:15)
[2023-05-22] MEDS ORDERED: POTASSIUM CHLORIDE ER 20 MEQ TAB.ER PO SCH (11:00)
--- NOTE | 2023-05-22 11:12 | P.PN ---
Subjective Progress Note Date: 05/22/23 This is an 82-year-old female with no previous history of GI bleeding, no previous history of peptic ulcer disease, patient presented to the ER on 05/18/2023, her chief complaint was mostly noticing large liquidy black stools. Patient was also complaining of weakness and lightheadedness. Upon admission the patient had more episodes of dark loose stools, and last night she was noted to have bloody bowel movements. Patient was seen by Dr. parker on consultation, and supposedly she had EGD, no report of the EGD noted on the chart, she also had a colonoscopy which showed no evidence of active bleeding she had mostly nonspecific diverticular disease, and polyp. Again no active bleeding. Her hemoglobin dropped since admission and the patient required 2 units of packed RBCs since admission. Last night considering the active bleeding noted by the nurses on the medical floor, patient was transferred to the ICU, and I was asked to see her on consultation. Today the patient is relatively asymptomatic except she feels generally weak. Denies any nausea or abdominal pain or vomiting. Hemoglobin this morning is 8.5, it was 6.8 last night, patient did receive 2 units of packed RBCs since admission. Baseline hemoglobin on 05/18 was 11.2. Since her EGD and colonoscopy were both nondiagnostic, patient had a tagged RBC study, and it also came back nondiagnostic. Surgery recommended referral to a tertiary care center since we don't have gastroenterology instructional services specialist. And this is being done at present in the meantime the patient is being closely monitored in the ICU presently the patient is asymptomatic The patient is seen today 05/22/2023 in follow-up in the intensive care unit. She is currently sitting up in bed. Awake and alert in no acute distress. Maintaining good O2 saturations in the 90s on room air. No further GI bleeding noted. She is status post 2 units of packed red blood cells this admission. Current hemoglobin 7.7. Tagged red blood cells revealed no active GI bleeding. White count 7.7. Platelets 171. Sodium 139. Potassium 3.8. Bicarb 24. BUN 11. Creatinine 0.90. Glucose 124. She is continued on IV Protonix. Receiving iron supplements. Objective - Vital Signs Vital signs: Vital Signs Temp 97.7 F 05/22/23 08:00 Pulse 96 05/22/23 10:00 Resp 18 05/22/23 10:00 BP 142/84 05/22/23 10:00 Pulse Ox 98 05/22/23 10:00 FiO2 Intake & Output 05/21/23 05/22/23 05/22/23 18:59 06:59 18:59 Intake Total 1050 250 Output Total 1102 1 0 Balance -52 -1 250 Weight 71.3 kg Intake: Intake, IV Titration 150 Amount Potassium Chloride 10 meq 50 In Water For Injection 1 100ml.bag @ 100 mls/hr IVPB Q1H [facility] Rx#: [id number] Sodium Ferric Gluconat- 100 Sucrose 125 mg In Sodium Chloride 0.9% 100 ml @ 100 mls/hr IVPB DAILY [facility] Rx#:[id number] Oral 1050 100 Output: Urine 1100 0 0 Stool 2 1 Other: Voiding Method Bedside Commode Bedside Commode Bedside Commode # Voids 1 # Bowel Movements 1 - Exam GENERAL EXAM: Alert, pleasant 82-year-old female patient, on room air, comfortable in no apparent distress. HEAD: Normocephalic. EYES: Normal reaction of pupils, equal size. NOSE: Clear with pink turbinates. THROAT: No erythema or exudates. NECK: No masses, no JVD. CHEST: No chest wall deformity. LUNGS: Equal air entry with no crackles, wheeze, rhonchi or dullness. CVS: S1 and S2 normal with no audible murmur, regular rhythm. ABDOMEN: No hepatosplenomegaly, normal bowel sounds, no guarding or rigidity. SPINE: No scoliosis or deformity SKIN: No rashes CENTRAL NERVOUS SYSTEM: No focal deficits, tone is normal in all 4 extremities. EXTREMITIES: There is no peripheral edema. No clubbing, no cyanosis. Peripheral pulses are intact. - Labs CBC & Chem 7: 05/22/23 03:45 05/22/23 03:45 Labs: Abnormal Lab Results - Last 24 Hours (Table) 05/21/23 05/22/23 05/22/23 Range/Units 11:56 00:31 03:45 RBC 2.84 L 2.58 L 2.58 L (3.80-5.40) m/uL Hgb 8.4 L 7.5 L 7.7 L (11.4-16.0) gm/dL Hct 25.2 L 22.7 L 22.8 L (34.0-46.0) % Chloride (98-107) mmol/L Glucose (74-99) mg/dL Total Protein (6.3-8.2) g/dL Albumin (3.5-5.0) g/dL 05/22/23 Range/Units 03:45 RBC (3.80-5.40) m/uL Hgb (11.4-16.0) gm/dL Hct (34.0-46.0) % Chloride 110 H (98-107) mmol/L Glucose 124 H (74-99) mg/dL Total Protein 5.4 L (6.3-8.2) g/dL Albumin 2.8 L (3.5-5.0) g/dL Assessment and Plan Assessment: Acute GI bleeding possibly upper GI in nature however the patient had negative diagnostic studies so far including EGD, colonoscopy, and tagged RBC study. Acute blood loss anemia, patient received 2 units of packed RBCs since admission Benign essential hypertension Degenerative joint disease Dyslipidemia Plan: The patient was seen and evaluated Labs and medications reviewed Tagged red blood cell study revealed no active bleeding Cleared for transfer out of the intensive care unit No plans for transfer to tertiary care center at this point per surgical services I have personally seen and examined the patient, performed the documentation and the assessment and plan as written. Number of minutes spent on the visit: 10.
--- NOTE | 2023-05-22 14:58 | P.PN ---
Subjective Progress Note Date: 05/22/23 CHIEF COMPLAINT: GI bleed HISTORY OF PRESENT ILLNESS: Patient be transferred out of the ICU today. Margaret nt reports no further blood in her stools. However, discussed case with GI service and patient is not reporting small amount of dark stools and patient is scheduled for capsule endoscopy for tomorrow. Patient denies abdominal pain. Denies any nausea or vomiting. Afebrile. Heart rate 107. BP 114/72 Hemoglobin stable at 7.7 patient currently not being transferred. She is being evaluated by GI service that is available this week. PHYSICAL EXAM: VITAL SIGNS: Reviewed. GENERAL: Well-developed in no acute distress. ABDOMEN: Soft. Nondistended. Nontender. NEUROLOGIC: Alert and oriented. Cranial nerves II through XII grossly intact. ASSESSMENT: 1. Acute GI bleed. EGD showing gastritis and hiatal hernia and colonoscopy had shown scattered diverticulosis, small colon polyps and blood throughout colon. Tagged RBC scan negative. PLAN: -Agree with GI consult and capsule endoscopy -Continue to monitor hemoglobin -Continue to monitor for any signs or symptoms of bleeding -Continue Protonix Physician Field Party Manager note has been reviewed by physician. Signing provider agrees with the documented findings, assessment, and plan of care. I have personally seen and examined the patient, reviewed the LUBE ATTENDANT /PAs history, exam and MDM and agree with the assessment and plan as written. Based on total visit time, I have performed more than 50% of the visit. As above: No further bleeding today. Hemoglobin 7.7. Had a small stool that was dark in color. She feels well. No more lightheadedness. GI was consulted for capsule endoscopy. If doing well possible discharge tomorrow. We'll follow. Objective - Vital Signs Vital signs: Vital Signs Temp 97.9 F 05/22/23 10:55 Pulse 107 H 05/22/23 10:55 Resp 16 05/22/23 10:55 BP 114/72 05/22/23 10:55 Pulse Ox 94 L 05/22/23 10:55 FiO2 Intake & Output 05/21/23 05/22/23 05/22/23 18:59 06:59 18:59 Intake Total 1050 250 Output Total 1102 1 0 Balance -52 -1 250 Weight 71.3 kg Intake: Intake, IV Titration 150 Amount Potassium Chloride 10 meq 50 In Water For Injection 1 100ml.bag @ 100 mls/hr IVPB Q1H [facility] Rx#: [id number] Sodium Ferric Gluconat- 100 Sucrose 125 mg In Sodium Chloride 0.9% 100 ml @ 100 mls/hr IVPB DAILY [facility] Rx#:[id number] Oral 1050 100 Output: Urine 1100 0 0 Stool 2 1 Other: Voiding Method Bedside Commode Bedside Commode Bedside Commode # Voids 1 # Bowel Movements 1 - Labs CBC & Chem 7: 05/22/23 03:45 05/22/23 03:45 Labs: Abnormal Lab Results - Last 24 Hours (Table) 05/21/23 05/22/23 05/22/23 Range/Units 11:56 00:31 03:45 RBC 2.84 L 2.58 L 2.58 L (3.80-5.40) m/uL Hgb 8.4 L 7.5 L 7.7 L (11.4-16.0) gm/dL Hct 25.2 L 22.7 L 22.8 L (34.0-46.0) % Chloride (98-107) mmol/L Glucose (74-99) mg/dL Total Protein (6.3-8.2) g/dL Albumin (3.5-5.0) g/dL 05/22/23 Range/Units 03:45 RBC (3.80-5.40) m/uL Hgb (11.4-16.0) gm/dL Hct (34.0-46.0) % Chloride 110 H (98-107) mmol/L Glucose 124 H (74-99) mg/dL Total Protein 5.4 L (6.3-8.2) g/dL Albumin 2.8 L (3.5-5.0) g/dL
[2023-05-22] MEDS ORDERED: MAGNESIUM CITRATE 296 ML BOTTLE PO ONE (20:00)
--- NOTE | 2023-05-23 01:35 | PN ---
PROGRESS NOTE DATE OF SERVICE: 05/22/2023 CHIEF COMPLAINT: Blood-loss anemia and gastrointestinal hemorrhage. HISTORY OF PRESENT ILLNESS: This lady has been stable. Hemoglobin is still in the mid 7s, but she has not had any active bleeding. Surgery has cancelled the transfer. REVIEW OF SYSTEMS: She feels fine. She is in good spirits and she has no abdominal pain, shortness of breath, chest pain, etc. PHYSICAL EXAMINATION: CHEST: Clear. CARDIAC: Normal. ABDOMEN: Soft and nontender. IMPRESSION: Lower gastrointestinal hemorrhage, source unknown. PLAN: 1. GI consult. 2. Continue to monitor her vital signs and hemoglobin. MMODL / IJN: [id number] /
--- NOTE | 2023-05-23 05:41 | PN ---
PROGRESS NOTE DATE OF SERVICE: 05/20/2023 CHIEF COMPLAINT: GI bleed. HISTORY OF PRESENT ILLNESS: This patient is continuing to have episodes of bleeding. Surgery is requested but she be transferred to a tertiary hospital and we are working on sending her to [facility]. REVIEW OF SYSTEMS: She denies any abdominal pain, shortness of breath, etc. PHYSICAL EXAMINATION: CHEST: Clear. CARDIAC: Normal. ABDOMEN: Soft, nontender. IMPRESSION: 1. GI bleed. 2. Blood loss anemia. PLAN: Contact [facility] about transfer. MMODL / IJN: [id number] /
[2023-05-23] MEDS ORDERED: SIMETHICONE 40 MG/0.6 ML DROPS 2,000 MG/30 ML BOTTLE PO ONE (07:15)
--- NOTE | 2023-05-23 07:35 | PN ---
PROGRESS NOTE DATE OF SERVICE: 05/21/2023 CHIEF COMPLAINT: GI bleed. HISTORY OF PRESENT ILLNESS: This lady remains stable. Arrangements were set up yesterday for her to go to [facility], and apparently there is not a bed available yet. REVIEW OF SYSTEMS: She is comfortable and she is having no pain. She is not having any bleeding during the night. Hemoglobin has been just over 70. PHYSICAL EXAMINATION: GENERAL: She is slightly pale. CHEST: Clear. CARDIAC: Normal. ABDOMEN: Soft, nontender. IMPRESSION: 1. GI bleed, source unknown. 2. Blood loss anemia. PLAN: Await transfer to [facility] when a bed is available. MMODL / IJN: [id number] /
[2023-05-23 08:28] LABS: Basophils % (A) 0 %; Eosinophils # (A) 0.4 k/uL (0-0.7); Eosinophils % (A) 5 %; HCT 21.2 % (34.0-46.0); Hypochromasia Slight; Lymphocytes # (A) 2.2 k/uL (1.0-4.8); Lymphocytes % (A) 28 %; MCH 29.2 pg (25.0-35.0); MCHC 32.4 g/dL (31.0-37.0); MCV 90.3 fL (80.0-100.0); Mean Platelet Volume 7.7; Monocytes # (A) 0.4 k/uL (0-1.0); Monocytes % (A) 5 %; Neutrophils # (A) 4.8 k/uL (1.3-7.7); Neutrophils % (A) 61 %; Platelet Count 215 k/uL (150-450); RBC 2.35 m/uL (3.80-5.40); RDW 15.3 % (11.5-15.5); WBC 7.9 k/uL (3.8-10.6)
[2023-05-23 08:36] LABS: HGB 6.9 gm/dL (11.4-16.0)
[2023-05-23] MEDS: PANTOPRAZOLE 40 MG/10 ML VIAL IVP SCH ×2 (08:41→21:06)
[2023-05-23] MEDS: SODIUM FERRIC GLUCONAT-SUCROSE 125 MG in SODIUM CHLORIDE 0.9% 100 ML IVPB SCH (08:56)
--- NOTE | 2023-05-23 10:08 | P.PN ---
Subjective Progress Note Date: 05/23/23 CHIEF COMPLAINT: GI bleed HISTORY OF PRESENT ILLNESS: Patient is currently regular medical floor. Denies any abdominal pain. Reports her bowel movement this morning was brown's. She is undergoing small bowel capsule endoscopy this morning. Afebrile. Mildly tachycardic. WBC is 7.9 Hgb has dropped from 7.7-6.9 platelets 215 PHYSICAL EXAM: VITAL SIGNS: Reviewed. GENERAL: Well-developed in no acute distress. ABDOMEN: Soft. Nondistended. Nontender. NEUROLOGIC: Alert and oriented. Cranial nerves II through XII grossly intact. ASSESSMENT: 1. Acute GI bleed. EGD showing gastritis and hiatal hernia and colonoscopy had shown scattered diverticulosis, small colon polyps and blood throughout colon. Tagged RBC scan negative. PLAN: -Patient undergoing small bowel capsule endoscopy today. Followed by GI service -Patient scheduled for 1 unit of blood for hemoglobin of 6.9 -Continue to monitor hemoglobin -Continue to monitor for any signs or symptoms of bleeding -Continue Protonix Physician Collection Systems Administrator note has been reviewed by physician. Signing provider agrees with the documented findings, assessment, and plan of care. I have personally seen and examined the patient, reviewed the HADOOP ARCHITECT /PAs history, exam and MDM and agree with the assessment and plan as written. Based on total visit time, I have performed more than 50% of the visit. As above: Patient doing well today. No further bleeding. Hemoglobin 6.9. Patient receiving 1 unit. Await capsule endoscopy. Possible discharge tomorrow. Objective - Vital Signs Vital signs: Vital Signs Temp 97.7 F 05/23/23 07:25 Pulse 96 05/23/23 07:25 Resp 16 05/23/23 07:25 BP 144/76 05/23/23 07:25 Pulse Ox 100 05/23/23 07:25 FiO2 Intake & Output 05/22/23 05/23/23 05/23/23 18:59 06:59 18:59 Intake Total 250 500 Output Total 0 1 Balance 250 499 Intake: Intake, IV Titration 150 Amount Potassium Chloride 10 meq 50 In Water For Injection 1 100ml.bag @ 100 mls/hr IVPB Q1H [facility] Rx#: [id number] Sodium Ferric Gluconat- 100 Sucrose 125 mg In Sodium Chloride 0.9% 100 ml @ 100 mls/hr IVPB DAILY [facility] Rx#:[id number] Oral 100 500 Output: Urine 0 Stool 1 Other: Voiding Method Bedside Commode Bedside Commode # Voids 1 2 # Bowel Movements 3 - Labs CBC & Chem 7: 05/23/23 08:14 05/22/23 03:45 Labs: Abnormal Lab Results - Last 24 Hours (Table) 05/23/23 05/23/23 Range/Units 08:14 08:59 RBC 2.35 L (3.80-5.40) m/uL Hgb 6.9 L* (11.4-16.0) gm/dL Hct 21.2 L (34.0-46.0) % Crossmatch See Detail
--- NOTE | 2023-05-23 11:57 | P.PN ---
Subjective Progress Note Date: 05/23/23 This is an 82-year-old female with no previous history of GI bleeding, no previous history of peptic ulcer disease, patient presented to the ER on 05/18/2023, her chief complaint was mostly noticing large liquidy black stools. Patient was also complaining of weakness and lightheadedness. Upon admission the patient had more episodes of dark loose stools, and last night she was noted to have bloody bowel movements. Patient was seen by Dr. parker on consultation, and supposedly she had EGD, no report of the EGD noted on the chart, she also had a colonoscopy which showed no evidence of active bleeding she had mostly nonspecific diverticular disease, and polyp. Again no active bleeding. Her hemoglobin dropped since admission and the patient required 2 units of packed RBCs since admission. Last night considering the active bleeding noted by the nurses on the medical floor, patient was transferred to the ICU, and I was asked to see her on consultation. Today the patient is relatively asymptomatic except she feels generally weak. Denies any nausea or abdominal pain or vomiting. Hemoglobin this morning is 8.5, it was 6.8 last night, patient did receive 2 units of packed RBCs since admission. Baseline hemoglobin on 05/18 was 11.2. Since her EGD and colonoscopy were both nondiagnostic, patient had a tagged RBC study, and it also came back nondiagnostic. Surgery recommended referral to a tertiary care center since we don't have gastroenterology ekg monitor. And this is being done at present in the meantime the patient is being closely monitored in the ICU presently the patient is asymptomatic The patient is seen today 05/22/2023 in follow-up in the intensive care unit. She is currently sitting up in bed. Awake and alert in no acute distress. Maintaining good O2 saturations in the 90s on room air. No further GI bleeding noted. She is status post 2 units of packed red blood cells this admission. Current hemoglobin 7.7. Tagged red blood cells revealed no active GI bleeding. White count 7.7. Platelets 171. Sodium 139. Potassium 3.8. Bicarb 24. BUN 11. Creatinine 0.90. Glucose 124. She is continued on IV Protonix. Receiving iron supplements. The patient is seen today today 05/23/2023 in follow-up on the regular medical floor. She was transferred out of the ICU yesterday. She is awake and alert in no acute distress. Maintaining O2 saturations in the 90s on room air. She's been afebrile. Hemodynamically stable. Her hemoglobin is drifted down to 6.9 today. She is receiving a third unit of packed red blood cells. She did undergo a capsule study initiated this morning. White count 7.9. Platelets 215. She is continued on Protonix IV push twice daily. Objective - Vital Signs Vital signs: Vital Signs Temp 97.8 F 05/23/23 11:34 Pulse 98 05/23/23 11:34 Resp 18 05/23/23 11:34 BP 136/74 05/23/23 11:34 Pulse Ox 99 05/23/23 11:34 FiO2 Intake & Output 05/22/23 05/23/23 05/23/23 18:59 06:59 18:59 Intake Total 250 500 0 Output Total 0 1 Balance 250 499 0 Intake: Intake, IV Titration 150 Amount Potassium Chloride 10 meq 50 In Water For Injection 1 100ml.bag @ 100 mls/hr IVPB Q1H [facility] Rx#: [id number] Sodium Ferric Gluconat- 100 Sucrose 125 mg In Sodium Chloride 0.9% 100 ml @ 100 mls/hr IVPB DAILY [facility] Rx#:[id number] Oral 100 500 Blood Product 0 Unit 0 Output: Urine 0 Stool 1 Other: Voiding Method Bedside Commode Bedside Commode # Voids 1 2 # Bowel Movements 3 - Exam GENERAL EXAM: Alert, 82-year-old female patient, on room air, comfortable in no apparent distress. HEAD: Normocephalic. EYES: Normal reaction of pupils, equal size. NOSE: Clear with pink turbinates. THROAT: No erythema or exudates. NECK: No masses, no JVD. CHEST: No chest wall deformity. LUNGS: Equal air entry with no crackles, wheeze, rhonchi or dullness. CVS: S1 and S2 normal with no audible murmur, regular rhythm. ABDOMEN: No hepatosplenomegaly, normal bowel sounds, no guarding or rigidity. SPINE: No scoliosis or deformity SKIN: No rashes CENTRAL NERVOUS SYSTEM: No focal deficits, tone is normal in all 4 extremities. EXTREMITIES: There is no peripheral edema. No clubbing, no cyanosis. Peripheral pulses are intact. - Labs CBC & Chem 7: 05/23/23 08:14 05/22/23 03:45 Labs: Abnormal Lab Results - Last 24 Hours (Table) 05/23/23 05/23/23 Range/Units 08:14 08:59 RBC 2.35 L (3.80-5.40) m/uL Hgb 6.9 L* (11.4-16.0) gm/dL Hct 21.2 L (34.0-46.0) % Crossmatch See Detail Assessment and Plan Assessment: Acute GI bleeding possibly upper GI in nature however the patient had negative diagnostic studies so far including EGD, colonoscopy, and tagged RBC study. Currently undergoing a capsule study Acute blood loss anemia, patient received 2 units of packed RBCs since admission. Hemoglobin today 6.9. Received a third unit of packed red blood cells Benign essential hypertension Degenerative joint disease Dyslipidemia Plan: The patient was seen and evaluated Labs and medications reviewed Currently receiving a third unit of packed red blood cells Currently undergoing a capsule study Currently stable and on room air We will continue to follow I have personally seen and examined the patient, performed the documentation and the assessment and plan as written. Number of minutes spent on the visit: 10.
--- NOTE | 2023-05-23 12:01 | P.CONS ---
History of Present Illness - Reason for Consult Consult date: 05/22/23 GIB, SBC Requesting physician: Solo Hernandez - Chief Complaint GI bleed - History of Present Illness This is a pleasant -[place]og[place] 82-year-old female who presented to the emergency department initially on 05/17/2023 with complaints of dark stool and some generalized weakness. She was noted to have a hemoglobin of 11.9 and was sent home. On the next morning she started having maroon-colored stools and continued to feel some weekness and fatigue. During that visit she is known to have elevated BUN and and a hemoglobin of 11.2 with a drop the next day to 8.8. She was admitted with concerns of GI bleed. Gen. surgery was consulted at that time as there was no gastroenterology in-house. Patient's last eye colonoscopy she believes was about 7 or [address] Pearce. She denies any history of previous GI bleed. Denies any anticoagulation and no regular NSAID use. States that she uses Aleve maybe once a week to every other week. She had m ultiple bowel movements that were soft, maroon colored and states last one this morning which she states was very small and still remains a maroon or dark brown. She denied any pain with her bowel movements or abdominal pain or cramping. She underwent EGD on 05/19/[address] Pearce with findings of gastritis and small hiatal hernia. She proceeded for colonoscopy on 05/20/2023 with findings of scattered diverticulosis and small colonic polyps. There was blood noted throughout the colon with clots, with no active bleeding seen. Dr. Pearce reported less blood overall in the right colon versus a left however large clots were seen at the cecal base. Etiology for source of bleeding unclear. Patient was started on a clear liquid diet. She had a drop in her hemoglobin on 05/21/2023 to 6.8 and received 2 units of blood with a repeat hemoglobin of 8.5. Today her hemoglob She underwent a tagged RBC also on 05/20/2023 that showed no active bleeding. She was admitted to the ICU during the hospitalization and was just transferred this morning to medical floor. Gastroenterology was consulted today for GI bleed, possible small bowel capsule study. Today's labs WBC 7.7 hemoglobin 7.7 hematocrit 22 platelet count 171,000 sodium 139 potassium 3.8 BUN 11 creatinine 0.9 Review of Systems REVIEW OF SYSTEMS: CARDIOPULMONARY: No chest pain or shortness of breath. Gastrointestinal: No abdominal pain. No nausea or vomiting. No hematemesis, coffee-ground emesis. No rectal bleeding. Patient having dark maroon stools and clots. GENITOURINARY: No dysuria or hematuria. MUSCULOSKELETAL: Reports normal range of motion. Joint pain. SKIN: No rashes. No jaundice. ENDOCRINE: No chills, fevers. No excessive weight gain or loss. No polydipsia or polyuria. PSYCHIATRIC: Unremarkable. NEUROLOGY: No change in mental status. Denies dizziness, headache. ENT: Vision unremarkable. CONSTITUTIONAL: No recent weight loss. No fever, chills, night sweats. 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 Past Anesthesia/Blood Transfusion Reactions: No Reported Reaction Past Psychological History: Anxiety Smoking Status: Never smoker Past Alcohol Use History: None Reported Past Drug Use History: None Reported - Past Family History Mother Additional Family Medical History / Comment(s): PNA, TB Father Family Medical History: No Reported History Medications and Allergies Home Medications Medication Instructions Recorded Confirmed Type Atenolol/Chlorthalidone 1 tab PO DAILY PRN 02/23/15 05/18/23 History [Atenolol-Chlorthalidone 100-25] Ascorbic Acid [Vitamin C] 1,000 mg PO DAILY 04/08/23 05/18/23 History Cholecalciferol [Vitamin D3 (25 25 mcg PO DAILY 04/08/23 05/18/23 History Mcg = 1000 Iu)] Cyanocobalamin (Vitamin B-12) 1,000 mcg PO DAILY 04/08/23 05/18/23 History [Vitamin B-12] Floradix Supplement 10 ml PO DAILY 04/08/23 05/18/23 History Ferrous Sulfate [Iron (65 MG 325 mg PO Q2D 05/17/23 05/18/23 History Elemental)] Calcium Carbonate [Calcium] 600 mg PO DAILY 05/18/23 05/18/23 History Folic Acid 0.4 mg PO DAILY 05/18/23 05/18/23 History Ginkgo Biloba [place] Extract [Ginkgo 125 mg PO DAILY 05/18/23 05/18/23 History Biloba] Allergies Allergy/AdvReac Type Severity Reaction Status Date / Time Penicillins Allergy Rash/Hives/ Verified 05/18/23 09:57 Swelling Physical Exam Vitals: Vital Signs Temp Pulse Pulse Resp BP BP Pulse Ox 05/22/23 10:55 97.9 F 107 H 16 114/72 94 L 05/22/23 10:00 96 18 142/84 98 05/22/23 09:00 98 18 139/66 97 05/22/23 08:00 97.7 F 98 18 130/61 98 05/22/23 07:00 95 14 134/51 97 05/22/23 06:00 89 12 119/54 98 05/22/23 05:00 88 12 138/125 96 05/22/23 04:00 98 F 89 14 131/81 98 05/22/23 03:00 78 12 109/55 95 05/22/23 02:00 75 12 114/64 94 L 05/22/23 01:00 89 12 120/65 95 05/22/23 00:00 98 F 81 14 127/64 95 05/21/23 23:00 92 8 L 108/53 98 05/21/23 22:00 93 11 L 118/59 97 05/21/23 21:00 84 15 120/66 96 05/21/23 20:00 98 F 95 18 105/43 96 05/21/23 19:00 96 14 123/98 97 05/21/23 18:00 92 13 114/64 97 05/21/23 17:00 98 12 117/51 98 05/21/23 16:00 98.3 F 93 11 L 126/58 98 05/21/23 15:00 96 12 114/59 99 05/21/23 14:00 87 20 139/78 99 05/21/23 13:00 98 12 120/70 99 05/21/23 12:00 98.6 F 92 12 107/76 97 Intake and Output 05/21/23 05/22/23 05/22/23 22:59 06:59 14:59 Intake Total 450 250 Output Total 500 1 0 Balance -50 -1 250 Intake: Intake, IV Titration 150 Amount Potassium Chloride 10 meq 50 In Water For Injection 1 100ml.bag @ 100 mls/hr IVPB Q1H [facility] Rx#: [id number] Sodium Ferric Gluconat- 100 Sucrose 125 mg In Sodium Chloride 0.9% 100 ml @ 100 mls/hr IVPB DAILY [facility] Rx#:[id number] Oral 450 100 Output: Urine 500 0 0 Stool 1 Other: Voiding Method Bedside Commode Bedside Commode Bedside Commode # Bowel Movements 1 Weight 71.3 kg General appearance: The patient is alert, oriented, appears in no acute distres s. HET: Head is normocephalic and atraumatic. Conjunctiva pink. Sclera anicteric. Neck: Supple without lymphadenopathy. Trachea midline. Heart: Regular. Lungs: Equal expansion, normal respiratory effort. Abdomen: Soft, nontender, nondistended with bowel sounds. No guarding or rigidity. Skin: No rashes. No jaundice. Extremities: Normal skin color and turgor. No pedal edema. Neurological: No focal deficits. Alert and oriented x3. Results CBC & Chem 7: 05/23/23 08:14 05/22/23 03:45 Labs: Abnormal Lab Results - Last 24 Hours (Table) 05/21/23 05/22/23 05/22/23 Range/Units 11:56 00:31 03:45 RBC 2.84 L 2.58 L 2.58 L (3.80-5.40) m/uL Hgb 8.4 L 7.5 L 7.7 L (11.4-16.0) gm/dL Hct 25.2 L 22.7 L 22.8 L (34.0-46.0) % Chloride (98-107) mmol/L Glucose (74-99) mg/dL Total Protein (6.3-8.2) g/dL Albumin (3.5-5.0) g/dL 05/22/23 Range/Units 03:45 RBC (3.80-5.40) m/uL Hgb (11.4-16.0) gm/dL Hct (34.0-46.0) % Chloride 110 H (98-107) mmol/L Glucose 124 H (74-99) mg/dL Total Protein 5.4 L (6.3-8.2) g/dL Albumin 2.8 L (3.5-5.0) g/dL Comments: On nuclear medicine tagged RBC reports negative examination. No evidence of active gastrointestinal bleeding during the initial one hour observation period. Assessment and Plan (1) GI bleed Narrative/Plan: 82-year-old female presenting with maroon colored and dark stools with noted drop in her hemoglobin as well as elevated BUN at 29 on admission, concerning for possible upper GI bleed. No previous history of GI bleed. Underwent EGD and colonoscopy during this stay with Dr. Pearce, the EGD revealing gastritis and small hiatal hernia. Colonoscopy revealed blood and clots throughout the colon without any identifiable active bleeding. Clear source of GI bleed. Patient also underwent a tagged RBC with no active bleed noted. She has received 2 units of blood during this admission. Unclear if this possible small bowel source and primary medical team is requesting a GI consult with on small bowel capsule endoscopy. Possible etiologies include a small bowel bleed, AVM, and diverticular bleed. Will proceed with small bowel capsule endoscopy. Current Visit: Yes Status: Acute Code(s): K92.2 - GASTROINTESTINAL HEMORRHAGE, UNSPECIFIED SNOMED Code(s): 80982790 (2) Acute blood loss anemia Current Visit: Yes Status: Acute Code(s): D62 - ACUTE POSTHEMORRHAGIC ANEMIA SNOMED Code(s): 341962642 Plan: 1. Continue symptomatic and supportive care 2. Daily CBC, transfuse for hemoglobin less than 7 3. Avoid NSAIDs 4. Continue Protonix 40 mg twice a day 5. Patient is status post EGD and colonoscopy, will proceed with small bowel video capsule endoscopy tomorrow 6. Patient may have low fiber diet today then nothing by mouth after midnight Thank you for this consultation, we will continue to follow. Dr. Sudha Lnych I agree with the dictator's note, documented as a scribe by Candida Perez.
--- NOTE | 2023-05-23 12:05 | P.PN ---
Subjective Progress Note Date: 05/23/23 Principal diagnosis: GI bleed This is a pleasant -[place] 82-year-old female who presented to the emergency department initially on 05/17/2023 with complaints of dark stool and some generalized weakness. She was noted to have a hemoglobin of 11.9 and was sent home. On the next morning she started having maroon-colored stools and continued to feel some weekness and fatigue. During that visit she is known to have elevated BUN and and a hemoglobin of 11.2 with a drop the next day to 8.8. She was admitted with concerns of GI bleed. Gen. surgery was consulted at that time as there was no gastroenterology in-house. Patient's last eye colonoscopy she believes was about 7 or [address] Pearce. She denies any history of previous GI bleed. Denies any anticoagulation and no regular NSAID use. States that she uses Aleve maybe once a week to every other week. She had multiple bowel movements that were soft, maroon colored and states last one this morning which she states was very small and still remains a maroon or dark brown. She denied any pain with her bowel movements or abdominal pain or cramping. She underwent EGD on 05/19/[address] Pearce with findings of gastritis and small hiatal hernia. She proceeded for colonoscopy on 05/20/2023 with findings of scattered diverticulosis and small colonic polyps. There was blood noted throughout the colon with clots, with no active bleeding seen. Dr. Pearce reported less blood overall in the right colon versus a left however large clots were seen at the cecal base. Etiology for source of bleeding unclear. Patient was started on a clear liquid diet. She had a drop in her hemoglobin on 05/21/2023 to 6.8 and received 2 units of blood with a repeat hemoglobin of 8.5. Today her hemoglob She underwent a tagged RBC also on 05/20/2023 that showed no active bleeding. She was admitted to the ICU during the hospitalization and was just transferred this morning to medical floor. Gastroenterology was consulted today for GI bleed, possible small bowel capsule study. Today's labs WBC 7.7 hemoglobin 7.7 hematocrit 22 platelet count 171,000 sodium 139 potassium 3.8 BUN 11 creatinine 0.9 05/23/2023 Patient seen and examined today as a follow-up. She states she did have some maroon colored stool last night after having her magnesium citrate however this morning she had a soft brown stool. Hemoglobin did drop to 6.9 this morning. She denies any abdominal pain, nausea or vomiting. Small bowel capsule endoscopy started this morning at 7:15 and patient currently has a video on. Objective - Vital Signs Vital signs: Vital Signs Temp 97.8 F 05/23/23 11:34 Pulse 98 05/23/23 11:34 Resp 18 05/23/23 11:34 BP 136/74 05/23/23 11:34 Pulse Ox 99 05/23/23 11:34 FiO2 Intake & Output 05/22/23 05/23/23 05/23/23 18:59 06:59 18:59 Intake Total 250 500 0 Output Total 0 1 Balance 250 499 0 Intake: Intake, IV Titration 150 Amount Potassium Chloride 10 meq 50 In Water For Injection 1 100ml.bag @ 100 mls/hr IVPB Q1H [facility] Rx#: [id number] Sodium Ferric Gluconat- 100 Sucrose 125 mg In Sodium Chloride 0.9% 100 ml @ 100 mls/hr IVPB DAILY [facility] Rx#:[id number] Oral 100 500 Blood Product 0 Unit 0 Output: Urine 0 Stool 1 Other: Voiding Method Bedside Commode Bedside Commode # Voids 1 2 # Bowel Movements 3 - Exam General appearance: The patient is alert, oriented, appears in no acute distress. HET: Head is normocephalic and atraumatic. Conjunctiva pink. Sclera anicteric. Neck: Supple without lymphadenopathy. Abdomen: Soft, nontender, nondistended with bowel sounds. No guarding or rigidity. Extremities: Normal skin color and turgor. No pedal edema Skin: No rashes, no jaundice Neurological: No focal deficits. Alert and oriented. - Labs CBC & Chem 7: 05/23/23 08:14 05/22/23 03:45 Labs: Abnormal Lab Results - Last 24 Hours (Table) 05/23/23 05/23/23 Range/Units 08:14 08:59 RBC 2.35 L (3.80-5.40) m/uL Hgb 6.9 L* (11.4-16.0) gm/dL Hct 21.2 L (34.0-46.0) % Crossmatch See Detail Assessment and Plan (1) GI bleed Narrative/Plan: 82-year-old female presenting with maroon colored and dark stools with noted drop in her hemoglobin as well as elevated BUN at 29 on admission, concerning for possible upper GI bleed. No previous history of GI bleed. Underwent EGD and colonoscopy during this stay with Dr. Pearce, the EGD revealing gastritis and small hiatal hernia. Colonoscopy revealed blood and clots throughout the colon without any identifiable active bleeding. Clear source of GI bleed. Patient also underwent a tagged RBC with no active bleed noted. She has received 2 units of blood during this admission. Unclear if this possible small bowel source and primary medical team is requesting a GI consult with on small bowel capsule endoscopy. Possible etiologies include a small bowel bleed, AVM, and diverticular bleed. Will proceed with small bowel capsule endoscopy. Small bowel capsule endoscopy currently in progress. Current Visit: Yes Status: Acute Code(s): K92.2 - GASTROINTESTINAL HEMORRHAGE, UNSPECIFIED SNOMED Code(s): 41874760 (2) Acute blood loss anemia Current Visit: Yes Status: Acute Code(s): D62 - ACUTE POSTHEMORRHAGIC ANEMIA SNOMED Code(s): 426064766 Plan: 1. Continue symptomatic and supportive care 2. Daily CBC, transfuse for hemoglobin less than 7 3. Transfuse 1 unit PRBC, repeat hemoglobin this evening 3. Avoid NSAIDs 4. Continue Protonix 40 mg twice a day 5. Patient is status post EGD and colonoscopy 6. Small bowel video capsule endoscopy currently in progress 7. Patient may have clear liquid diet 2 hours after video endoscopy started, may have low fiber diet for lunch. Thank you for this consultation, we will continue to follow. Dr. Sudha Lynch I agree with the dictator's note, documented as a scribe by Candida Perez.
[2023-05-23 18:50] LABS: Anisocytosis Slight; HGB 7.9 gm/dL (11.4-16.0); Hypochromasia Slight; MCHC 32.9 g/dL (31.0-37.0); MCV 88.2 fL (80.0-100.0); Platelet Count 212 k/uL (150-450); RBC 2.72 m/uL (3.80-5.40); RDW 16.3 % (11.5-15.5); WBC 9.4 k/uL (3.8-10.6)
--- NOTE | 2023-05-24 00:56 | PN ---
PROGRESS NOTE CHIEF COMPLAINT: GI bleed. HISTORY OF PRESENT ILLNESS: This lady has been seen by Gastroenterology and is undergoing a capsule study. Hemoglobin is still staying down. PHYSICAL EXAMINATION: CHEST: Clear. CARDIAC: Normal. ABDOMEN: Soft, nontender. IMPRESSION: Gastrointestinal bleed, source unknown. PLAN: 1. Continue to monitor her hemoglobin. 2. Capsule study of the small bowel. MMODL / IJN: [id number] /
[2023-05-24 07:57] VITALS: RESP 16
[2023-05-24] MEDS: PANTOPRAZOLE 40 MG/10 ML VIAL IVP SCH ×2 (09:00→20:49)
[2023-05-24] MEDS: SODIUM FERRIC GLUCONAT-SUCROSE 125 MG in SODIUM CHLORIDE 0.9% 100 ML IVPB SCH (09:00)
--- NOTE | 2023-05-24 10:37 | P.PN ---
Subjective Progress Note Date: 05/24/23 CHIEF COMPLAINT: GI bleed HISTORY OF PRESENT ILLNESS: Patient sitting in bed comfortably. She is tolerat ing diet. She did receive a unit of blood yesterday for hemoglobin of 6.9. Hemoglobin did come up to 7.9. Awaiting today's hemoglobin. She denies any further black stools. Patient awaiting her capsule endoscopy results. She would like to be discharged today. Denies abdominal pain. PHYSICAL EXAM: VITAL SIGNS: Reviewed. GENERAL: Well-developed in no acute distress. ABDOMEN: Soft. Nondistended. Nontender. NEUROLOGIC: Alert and oriented. Cranial nerves II through XII grossly intact. ASSESSMENT: 1. Acute GI bleed. EGD showing gastritis and hiatal hernia and colonoscopy had shown scattered diverticulosis, small colon polyps and blood throughout colon. Tagged RBC scan negative. PLAN: -Possible discharge today. Awaiting capsule endoscopy results and todays Hgb results -Continue Protonix Physician Manager Of Merchandising note has been reviewed by physician. Signing provider agrees with the documented findings, assessment, and plan of care. I have personally seen and examined the patient, reviewed the [employer] /PAs history, exam and MDM and agree with the assessment and plan as written. Based on total visit time, I have performed more than 50% of the visit. As above: Capsule endoscopy reviewed with GI. Monitor for recurrent bleeding although I suspect this may be old blood there seeing in the colon. Etiology seems to be most likely colonic now given the capsule results. Will follow. Objective - Vital Signs Vital signs: Vital Signs Temp 98.7 F 05/24/23 07:06 Pulse 88 05/24/23 07:06 Resp 16 05/24/23 07:06 BP 152/80 05/24/23 07:06 Pulse Ox 100 05/24/23 07:06 FiO2 Intake & Output 05/23/23 05/24/23 05/24/23 18:59 06:59 18:59 Intake Total 310 118 Output Total 0 Balance 310 118 Intake: Oral 118 Blood Product 310 Rc As-1 Unit 310 [id number] Output: Urine 0 Other: Voiding Method Bedside Commode # Voids 2 1 - Labs CBC & Chem 7: 05/24/23 06:04 05/22/23 03:45 Labs: Abnormal Lab Results - Last 24 Hours (Table) 12/19/23 12/19/23 Range/Units 08:59 18:30 RBC 2.72 L (3.80-5.40) m/uL Hgb 7.9 L (11.4-16.0) gm/dL Hct 24.0 L (34.0-46.0) % RDW 16.3 H (11.5-15.5) % Crossmatch See Detail
[2023-05-24] MEDS ORDERED: MAG HYDROX/AL HYDROX/SIMETH 30 ML CUP PO PRN (11:15)
--- NOTE | 2023-05-24 11:20 | P.PN ---
Subjective Progress Note Date: 05/24/23 This is an 82-year-old female with no previous history of GI bleeding, no previous history of peptic ulcer disease, patient presented to the ER on 05/18/2023, her chief complaint was mostly noticing large liquidy black stools. Patient was also complaining of weakness and lightheadedness. Upon admission the patient had more episodes of dark loose stools, and last night she was noted to have bloody bowel movements. Patient was seen by Dr. parker on consultation, and supposedly she had EGD, no report of the EGD noted on the chart, she also had a colonoscopy which showed no evidence of active bleeding she had mostly nonspecific diverticular disease, and polyp. Again no active bleeding. Her hemoglobin dropped since admission and the patient required 2 units of packed RBCs since admission. Last night considering the active bleeding noted by the nurses on the medical floor, patient was transferred to the ICU, and I was asked to see her on consultation. Today the patient is relatively asymptomatic except she feels generally weak. Denies any nausea or abdominal pain or vomiting. Hemoglobin this morning is 8.5, it was 6.8 last night, patient did receive 2 units of packed RBCs since admission. Baseline hemoglobin on 05/18 was 11.2. Since her EGD and colonoscopy were both nondiagnostic, patient had a tagged RBC study, and it also came back nondiagnostic. Surgery recommended referral to a tertiary care center since we don't have gastroenterology contracts intern. And this is being done at present in the meantime the patient is being closely monitored in the ICU presently the patient is asymptomatic The patient is seen today 05/22/2023 in follow-up in the intensive care unit. She is currently sitting up in bed. Awake and alert in no acute distress. Maintaining good O2 saturations in the 90s on room air. No further GI bleeding noted. She is status post 2 units of packed red blood cells this admission. Current hemoglobin 7.7. Tagged red blood cells revealed no active GI bleeding. White count 7.7. Platelets 171. Sodium 139. Potassium 3.8. Bicarb 24. BUN 11. Creatinine 0.90. Glucose 124. She is continued on IV Protonix. Receiving iron supplements. The patient is seen today today 05/23/2023 in follow-up on the regular medical floor. She was transferred out of the ICU yesterday. She is awake and alert in no acute distress. Maintaining O2 saturations in the 90s on room air. She's been afebrile. Hemodynamically stable. Her hemoglobin is drifted down to 6.9 today. She is receiving a third unit of packed red blood cells. She did undergo a capsule study initiated this morning. White count 7.9. Platelets 215. She is continued on Protonix IV push twice daily. The patient is seen today 05/24/2023 in follow-up on the regular medical floor. She is currently sitting up in bread of having breakfast. She denies any worsening shortness of breath, cough or congestion. Maintaining good O2 saturations in the 90s on room air. She did undergo capsule endoscopy throughout the past 24 hours. Results are pending. She is status post 3 units of packed red blood cells this admission. Current hemoglobin 7.9. She remains on Protonix. Receiving iron supplements. Objective - Vital Signs Vital signs: Vital Signs Temp 98.7 F 05/24/23 07:06 Pulse 88 05/24/23 07:06 Resp 16 05/24/23 07:06 BP 152/80 05/24/23 07:06 Pulse Ox 100 05/24/23 07:06 FiO2 Intake & Output 05/23/23 05/24/23 05/24/23 18:59 06:59 18:59 Intake Total 310 118 Output Total 0 Balance 310 118 Intake: Oral 118 Blood Product 310 Rc As-1 Unit 310 [id number] Output: Urine 0 Other: Voiding Method Bedside Commode # Voids 2 1 - Exam GENERAL EXAM: Alert, very pleasant 82-year-old female patient, sitting up having breakfast, on room air, comfortable in no apparent distress. HEAD: Normocephalic. EYES: Normal reaction of pupils, equal size. NOSE: Clear with pink turbinates. THROAT: No erythema or exudates. NECK: No masses, no JVD. CHEST: No chest wall deformity. LUNGS: Equal air entry with no crackles, wheeze, rhonchi or dullness. CVS: S1 and S2 normal with no audible murmur, regular rhythm. ABDOMEN: No hepatosplenomegaly, normal bowel sounds, no guarding or rigidity. SPINE: No scoliosis or deformity SKIN: No rashes CENTRAL NERVOUS SYSTEM: No focal deficits, tone is normal in all 4 extremities. EXTREMITIES: There is no peripheral edema. No clubbing, no cyanosis. Perip heral pulses are intact. - Labs CBC & Chem 7: 05/23/23 18:30 05/22/23 03:45 Labs: Abnormal Lab Results - Last 24 Hours (Table) 05/23/23 05/23/23 Range/Units 08:59 18:30 RBC 2.72 L (3.80-5.40) m/uL Hgb 7.9 L (11.4-16.0) gm/dL Hct 24.0 L (34.0-46.0) % RDW 16.3 H (11.5-15.5) % Crossmatch See Detail Assessment and Plan Assessment: Acute GI bleeding possibly upper GI in nature however the patient had negative diagnostic studies so far including EGD, colonoscopy, and tagged RBC study. Capsule study pending Acute blood loss anemia, patient received 3 units of packed RBCs since admission. Current hemoglobin 7.9 Benign essential hypertension Degenerative joint disease Dyslipidemia Plan: The patient was seen and evaluated Medications reviewed Capsule study results pending Remains on Protonix Receiving iron supplements Currently stable and on room air This patient was seen independently by the nurse practitioner I have personally seen and examined the patient, performed the documentation and the assessment and plan as written. Number of minutes spent on the visit: 22.
[2023-05-24 11:24] LABS: HCT 23.6 % (37.2-46.3); HGB 7.6 g/dL (12.0-15.0); MCH 28.3 pg (27.0-32.0); MCHC 32.2 g/dL (32.0-37.0); MCV 87.7 FL (80.0-97.0); Mean Platelet Volume 9.8 FL (9.5-12.2); NRBC Per 100 WBC 0.02 X 10*3/uL (0.00-0.01); Platelet Count 224 X 10*3/uL (140-440); RBC 2.69 X 10*6/uL (4.10-5.20); RDW 16.9 % (11.5-14.5); WBC 9.55 X 10*3/uL (4.50-10.00)
--- NOTE | 2023-05-24 14:44 | P.PN ---
Subjective Progress Note Date: 05/24/23 Principal diagnosis: GI bleed This is a pleasant -[place] 82-year-old female who presented to the emergency department initially on 05/17/2023 with complaints of dark stool and some generalized weakness. She was noted to have a hemoglobin of 11.9 and was sent home. On the next morning she started having maroon-colored stools and continued to feel some weekness and fatigue. During that visit she is known to have elevated BUN and and a hemoglobin of 11.2 with a drop the next day to 8.8. She was admitted with concerns of GI bleed. Gen. surgery was consulted at that time as there was no gastroenterology in-house. Patient's last eye colonoscopy she believes was about 7 or [address] Pearce. She denies any history of previous GI bleed. Denies any anticoagulation and no regular NSAID use. States that she uses Aleve maybe once a week to every other week. She had multiple bowel movements that were soft, maroon colored and states last one this morning which she states was very small and still remains a maroon or dark brown. She denied any pain with her bowel movements or abdominal pain or cramping. She underwent EGD on 05/19/[address] Pearce with findings of gastritis and small hiatal hernia. She proceeded for colonoscopy on 05/20/2023 with findings of scattered diverticulosis and small colonic polyps. There was blood noted throughout the colon with clots, with no active bleeding seen. Dr. Pearce reported less blood overall in the right colon versus a left however large clots were seen at the cecal base. Etiology for source of bleeding unclear. Patient was started on a clear liquid diet. She had a drop in her hemoglobin on 05/21/2023 to 6.8 and received 2 units of blood with a repeat hemoglobin of 8.5. Today her hemoglob She underwent a tagged RBC also on 05/20/2023 that showed no active bleeding. She was admitted to the ICU during the hospitalization and was just transferred this morning to medical floor. Gastroenterology was consulted today for GI bleed, possible small bowel capsule study. Today's labs WBC 7.7 hemoglobin 7.7 hematocrit 22 platelet count 171,000 sodium 139 potassium 3.8 BUN 11 creatinine 0.9 05/23/2023 Patient seen and examined today as a follow-up. She states she did have some maroon colored stool last night after having her magnesium citrate however this morning she had a soft brown stool. Hemoglobin did drop to 6.9 this morning. She denies any abdominal pain, nausea or vomiting. Small bowel capsule endoscopy started this morning at 7:15 and patient currently has a video on. 05/24/2023 Patient seen and examined today as a follow-up for GI bleed. Yesterday she underwent a small bowel capsule endoscopy which was reviewed today that shows fresh blood in the colon. This is likely consistent with a diverticular bleed. Today's hemoglobin is stable at 7.6. She states that she did have a little bit of maroon stool yesterday but then it was brown. Denies any active bleeding at this time. She is however complaining of some chest pain/pressure, thinks it may be indigestion. Objective - Vital Signs Vital signs: Vital Signs Temp 98.7 F 05/24/23 07:06 Pulse 88 05/24/23 07:06 Resp 16 05/24/23 07:06 BP 152/80 05/24/23 07:06 Pulse Ox 100 05/24/23 07:06 FiO2 Intake & Output 05/23/23 05/24/23 05/24/23 18:59 06:59 18:59 Intake Total 310 118 Output Total 0 Balance 310 118 Intake: Oral 118 Blood Product 310 Rc As-1 Unit 310 [id number] Output: Urine 0 Other: Voiding Method Bedside Commode # Voids 2 1 - Exam General appearance: The patient is alert, oriented, appears in no acute distress. HET: Head is normocephalic and atraumatic. Conjunctiva pink. Sclera anicteric. Neck: Supple without lymphadenopathy. Abdomen: Soft, nontender, nondistended with bowel sounds. No guarding or rigidity. Extremities: Normal skin color and turgor. No pedal edema Skin: No rashes, no jaundice Neurological: No focal deficits. Alert and oriented. - Labs CBC & Chem 7: 05/24/23 06:04 05/22/23 03:45 Labs: Abnormal Lab Results - Last 24 Hours (Table) 05/23/23 05/24/23 Range/Units 18:30 06:04 RBC 2.72 L 2.69 L (3.80-5.40) m/uL Hgb 7.9 L 7.6 L (11.4-16.0) gm/dL Hct 24.0 L 23.6 L (34.0-46.0) % RDW 16.3 H 16.9 H (11.5-15.5) % NRBC/100 WBC Diff 0.02 H (0.00-0.01) X 10*3/uL Assessment and Plan (1) GI bleed Narrative/Plan: 82-year-old female presenting with maroon colored and dark stools with noted drop in her hemoglobin as well as elevated BUN at 29 on admission, concerning for possible upper GI bleed. No previous history of GI bleed. Underwent EGD and colonoscopy during this stay with Dr. Pearce, the EGD revealing gastritis and small hiatal hernia. Colonoscopy revealed blood and clots throughout the colon without any identifiable active bleeding. Clear source of GI bleed. Patient also underwent a tagged RBC with no active bleed noted. She has received 2 units of blood during this admission. Unclear if this possible small bowel source and primary medical team is requesting a GI consult with on small bowel capsule endoscopy. Possible etiologies include a small bowel bleed, AVM, and d iverticular bleed. Will proceed with small bowel capsule endoscopy. Small bowel capsule endoscopy currently in progress. 05/24/2023: Small bowel capsule endoscopy showing active bleeding within the colon. Likely diverticular bleed. Patient without any further reports of blood in her stool. Hemoglobin is stable today at 7.6. Hopefully bleeding will subside on its own otherwise may need to consider transfer to tertiary center for embolization. Current Visit: Yes Status: Acute Code(s): K92.2 - GASTROINTESTINAL H EMORRHAGE, UNSPECIFIED SNOMED Code(s): 14782106 (2) Acute blood loss anemia Current Visit: Yes Status: Acute Code(s): D62 - ACUTE POSTHEMORRHAGIC ANEMIA SNOMED Code(s): 964826288 (3) Chest pain Narrative/Plan: Patient was complaining of chest pain and patient believes it may be indigestion/acid reflux. Maalox ordered, however nursing instructed to contact patient's PCP P Dr. Hernandez for further orders. Current Visit: No Status: Acute Code(s): R07.9 - CHEST PAIN, UNSPECIFIED SNOMED Code(s): 27676331 Plan: 1. Continue symptomatic and supportive care 2. Daily CBC, transfuse for hemoglobin less than 7 3. Patient to be on clear liquid diet 4. Avoid NSAIDs 5. Continue Protonix 40 mg twice a day 6. Patient is status post EGD and colonoscopy, small bowel video capsule endoscopy 7. Maalox ordered 1 dose. Nursing instructed to contact PCP regarding complai nts of chest pain for further orders 8. Further recommendations forthcoming based on clinical course. Patient may need to be considered for transfer to tertiary center for embolization. Thank you for this consultation, we will continue to follow. Dr. Sudha Lynch I agree with the dictator's note, documented as a scribe by Candida Perez.
--- NOTE | 2023-05-25 05:07 | PN ---
PROGRESS NOTE DATE OF SERVICE: 05/24/2023 CHIEF COMPLAINT: GI bleed. HISTORY OF PRESENT ILLNESS: This lady is fairly stable, but her hemoglobin is not coming up. She is becoming very frustrated as is the family. She does not understand why she is here or has to stay in the hospital. She insists that she is no longer bleeding and wants to go home. Capsule study was done was being interpreted and GI is planning on coming back and talking to her about the outcomes. At that point, a decision will have to be made regarding her management vis-a-vis GI bleed. PHYSICAL EXAMINATION: VITAL SIGNS: Normal. CHEST: Clear. ABDOMEN: Soft, nontender. IMPRESSION: GI bleed. PLAN: Await outcome of capsule study of the small bowel. MMODL / IJN: [id number] /
[2023-05-25 08:45] LABS: HCT 22.5 % (37.2-46.3); HGB 7.2 g/dL (12.0-15.0); MCH 28.7 pg (27.0-32.0); MCV 89.6 FL (80.0-97.0); Mean Platelet Volume 9.6 FL (9.5-12.2); NRBC Per 100 WBC 0 X 10*3/uL (0.00-0.01); Platelet Count 235 X 10*3/uL (140-440); RBC 2.51 X 10*6/uL (4.10-5.20); RDW 17.3 % (11.5-14.5); WBC 9.23 X 10*3/uL (4.50-10.00)
[2023-05-25] MEDS: SODIUM FERRIC GLUCONAT-SUCROSE 125 MG in SODIUM CHLORIDE 0.9% 100 ML IVPB SCH (08:55)
[2023-05-25] MEDS: PANTOPRAZOLE 40 MG/10 ML VIAL IVP SCH (08:56)
--- NOTE | 2023-05-25 12:42 | P.PN ---
Subjective Progress Note Date: 05/25/23 CHIEF COMPLAINT: GI bleed HISTORY OF PRESENT ILLNESS: Patient lying in bed comfortably. She did have dark bowel movement yesterday. Since then no bowel movements. Denies abdominal pain. Denies any nausea or vomiting. Small bowel Capsule endoscopy that showed fresh blood in the colon per GI service. Vitals stable. Hemoglobin 7.6-7.2 PHYSICAL EXAM: VITAL SIGNS: Reviewed. GENERAL: Well-developed in no acute distress. ABDOMEN: Soft. Nondistended. Nontender. NEUROLOGIC: Alert and oriented. Cranial nerves II through XII grossly intact. ASSESSMENT: 1. Acute GI bleed. EGD showing gastritis and hiatal hernia and colonoscopy had shown scattered diverticulosis, small colon polyps and blood throughout colon. Tagged RBC scan negative. PLAN: -Patient can be discharged from surgical standpoint when cleared by GI service -Further management of GI bleed per GI service -Continue Protonix Physician Bag Cutter note has been reviewed by physician. Signing provider agrees with the documented findings, assessment, and plan of care. I have personally seen and examined the patient, reviewed the COMBINATION MAN /PAs history, exam and MDM and agree with the assessment and plan as written. Based on total visit time, I have performed more than 50% of the visit. As above: Patient doing well today. She had a brown stool. She would like to go home. October discharge. Objective - Vital Signs Vital signs: Vital Signs Temp 98.7 F 05/25/23 07:24 Pulse 92 05/25/23 07:24 Resp 16 05/25/23 07:24 BP 135/73 05/25/23 07:24 Pulse Ox 99 05/25/23 07:24 FiO2 Intake & Output 05/24/23 05/25/23 05/25/23 18:59 06:59 18:59 Intake Total 100 1000 Balance 100 1000 Intake: Intake, IV Titration 100 Amount Sodium Ferric Gluconat- 100 Sucrose 125 mg In Sodium Chloride 0.9% 100 ml @ 100 mls/hr IVPB DAILY [facility] Rx#:[id number] Oral 1000 Other: Voiding Method Toilet Toilet # Voids 3 2 # Bowel Movements 1 - Labs CBC & Chem 7: 05/25/23 05:59 05/22/23 03:45 Labs: Abnormal Lab Results - Last 24 Hours (Table) 05/25/23 Range/Units 05:59 RBC 2.51 L (4.10-5.20) X 10*6/uL Hgb 7.2 L (12.0-15.0) g/dL Hct 22.5 L (37.2-46.3) % RDW 17.3 H (11.5-14.5) %
--- NOTE | 2023-05-25 13:37 | P.PN ---
Subjective Progress Note Date: 05/25/23 Principal diagnosis: GI bleed This is a pleasant -Vincentian 82-year-old female who presented to the emergency department initially on 05/17/2023 with complaints of dark stool and some generalized weakness. She was noted to have a hemoglobin of 11.9 and was sent home. On the next morning she started having maroon-colored stools and continued to feel some weekness and fatigue. During that visit she is known to have elevated BUN and and a hemoglobin of 11.2 with a drop the next day to 8.8. She was admitted with concerns of GI bleed. Gen. surgery was consulted at that time as there was no gastroenterology in-house. Patient's last eye colonoscopy she believes was about 7 or [address] Pearce. She denies any history of previous GI bleed. Denies any anticoagulation and no regular NSAID use. States that she uses Aleve maybe once a week to every other week. She had multiple bowel movements that were soft, maroon colored and states last one this morning which she states was very small and still remains a maroon or dark brown. She denied any pain with her bowel movements or abdominal pain or cramping. She underwent EGD on 05/19/[address] Pearce with findings of gastritis and small hiatal hernia. She proceeded for colonoscopy on 05/20/2023 with findings of scattered diverticulosis and small colonic polyps. There was blood noted throughout the colon with clots, with no active bleeding seen. Dr. Pearce reported less blood overall in the right colon versus a left however large clots were seen at the cecal base. Etiology for source of bleeding unclear. Patient was started on a clear liquid diet. She had a drop in her hemoglobin on 05/21/2023 to 6.8 and received 2 units of blood with a repeat hemoglobin of 8.5. Today her hemoglob She underwent a tagged RBC also on 05/20/2023 that showed no active bleeding. She was admitted to the ICU during the hospitalization and was just transferred this morning to medical floor. Gastroenterology was consulted today for GI bleed, possible small bowel capsule study. Today's labs WBC 7.7 hemoglobin 7.7 hematocrit 22 platelet count 171,000 sodium 139 potassium 3.8 BUN 11 creatinine 0.9 05/23/2023 Patient seen and examined today as a follow-up. She states she did have some maroon colored stool last night after having her magnesium citrate however this morning she had a soft brown stool. Hemoglobin did drop to 6.9 this morning. She denies any abdominal pain, nausea or vomiting. Small bowel capsule endoscopy started this morning at 7:15 and patient currently has a video on. 05/24/2023 Patient seen and examined today as a follow-up for GI bleed. Yesterday she underwent a small bowel capsule endoscopy which was reviewed today that shows fresh blood in the colon. This is likely consistent with a diverticular bleed. Today's hemoglobin is stable at 7.6. She states that she did have a little bit of maroon stool yesterday but then it was brown. Denies any active bleeding at this time. She is however complaining of some chest pain/pressure, thinks it may be indigestion. 05/25/2023 Patient seen and examined today as a follow-up. Hemoglobin from 7.6-7.2. She denies any bowel movement early this morning however when reevaluated in this afternoon she did have a small brown bowel movement. She denies any abdominal pain, nausea or vomiting. Gen. surgery has seen and cleared patient for discharge. Objective - Vital Signs Vital signs: Vital Signs Temp 98.7 F 05/25/23 07:24 Pulse 92 05/25/23 07:24 Resp 16 05/25/23 07:24 BP 135/73 05/25/23 07:24 Pulse Ox 99 05/25/23 07:24 FiO2 Intake & Output 05/24/23 05/25/23 05/25/23 18:59 06:59 18:59 Intake Total 100 1000 Balance 100 1000 Intake: Intake, IV Titration 100 Amount Sodium Ferric Gluconat- 100 Sucrose 125 mg In Sodium Chloride 0.9% 100 ml @ 100 mls/hr IVPB DAILY [facility] Rx#:[id number] Oral 1000 Other: Voiding Method Toilet Toilet # Voids 3 2 # Bowel Movements 1 - Exam General appearance: The patient is alert, oriented, appears in no acute distress. HET: Head is normocephalic and atraumatic. Conjunctiva pink. Sclera anicteric. Neck: Supple without lymphadenopathy. Abdomen: Soft, nontender, nondistended with bowel sounds. No guarding or rigidity. Extremities: Normal skin color and turgor. No pedal edema Skin: No rashes, no jaundice Neurological: No focal deficits. Alert and oriented. - Labs CBC & Chem 7: 05/25/23 05:59 05/22/23 03:45 Labs: Abnormal Lab Results - Last 24 Hours (Table) 05/24/23 05/25/23 Range/Units 06:04 05:59 RBC 2.69 L 2.51 L (4.10-5.20) X 10*6/uL Hgb 7.6 L 7.2 L (12.0-15.0) g/dL Hct 23.6 L 22.5 L (37.2-46.3) % RDW 16.9 H 17.3 H (11.5-14.5) % NRBC/100 WBC Diff 0.02 H (0.00-0.01) X 10*3/uL Assessment and Plan (1) GI bleed Narrative/Plan: 82-year-old female presenting with maroon colored and dark stools with noted drop in her hemoglobin as well as elevated BUN at 29 on admission, concerning for possible upper GI bleed. No previous history of GI bleed. Underwent EGD and colonoscopy during this stay with Dr. Pearce, the EGD revealing gastritis and small hiatal hernia. Colonoscopy revealed blood and clots throughout the colon without any identifiable active bleeding. Clear source of GI bleed. Patient also underwent a tagged RBC with no active bleed noted. She has received 2 units of blood during this admission. Unclear if this possible small bowel source and primary medical team is requesting a GI consult with on small bowel capsule endoscopy. Possible etiologies include a small bowel bleed, AVM, and diverticular bleed. Will proceed with small bowel capsule endoscopy. Small bowel capsule endoscopy currently in progress. 05/24/2023: Small bowel capsule endoscopy showing active bleeding within the colon. Likely diverticular bleed. Patient without any further reports of blood in her stool. Hemoglobin is stable today at 7.6. Hopefully bleeding will subside on its own otherwise may need to consider transfer to tertiary center for embolization. Current Visit: Yes Status: Acute Code(s): K92.2 - GASTROINTESTINAL HEMORRHAGE, UNSPECIFIED SNOMED Code(s): 28144623 (2) Acute blood loss anemia Current Visit: Yes Status: Acute Code(s): D62 - ACUTE POSTHEMORRHAGIC ANEMIA SNOMED Code(s): 795045588 (3) Chest pain Narrative/Plan: Patient was complaining of chest pain and patient believes it may be indigestion/acid reflux. Maalox ordered, however nursing instructed to contact patient's PCP P Dr. Hernandez for further orders. Chest pain is resolved. Current Visit: No Status: Acute Code(s): R07.9 - CHEST PAIN, UNSPECIFIED SNOMED Code(s): 50387355 Plan: 1. Continue symptomatic and supportive care 2. Daily CBC, transfuse for hemoglobin less than 7 3. Full liquid diet, then advance as tolerated 4. Avoid NSAIDs 5. Continue Protonix 40 mg twice a day 6. Patient is status post EGD and colonoscopy, small bowel video capsule endoscopy 7. Cleared for discharge from gastroenterology Thank you for this consultation. Dr. Sudha Lynch I agree with the dictator's note, documented as a scribe by Candida Perez.
--- NOTE | 2023-05-25 14:29 | P.PN ---
Subjective Progress Note Date: 05/25/23 This is an 82-year-old female with no previous history of GI bleeding, no previous history of peptic ulcer disease, patient presented to the ER on 05/18/2023, her chief complaint was mostly noticing large liquidy black stools. Patient was also complaining of weakness and lightheadedness. Upon admission the patient had more episodes of dark loose stools, and last night she was noted to have bloody bowel movements. Patient was seen by Dr. parker on consultation, and supposedly she had EGD, no report of the EGD noted on the chart, she also had a colonoscopy which showed no evidence of active bleeding she had mostly nonspecific diverticular disease, and polyp. Again no active bleeding. Her hemoglobin dropped since admission and the patient required 2 units of packed RBCs since admission. Last night considering the active bleeding noted by the nurses on the medical floor, patient was transferred to the ICU, and I was asked to see her on consultation. Today the patient is relatively asymptomatic except she feels generally weak. Denies any nausea or abdominal pain or vomiting. Hemoglobin this morning is 8.5, it was 6.8 last night, patient did receive 2 units of packed RBCs since admission. Baseline hemoglobin on 05/18 was 11.2. Since her EGD and colonoscopy were both nondiagnostic, patient had a tagged RBC study, and it also came back nondiagnostic. Surgery recommended referral to a tertiary care center since we don't have gastroenterology asset protection manager. And this is being done at present in the meantime the patient is being closely monitored in the ICU presently the patient is asymptomatic The patient is seen today 05/22/2023 in follow-up in the intensive care unit. She is currently sitting up in bed. Awake and alert in no acute distress. Maintaining good O2 saturations in the 90s on room air. No further GI bleeding noted. She is status post 2 units of packed red blood cells this admission. Current hemoglobin 7.7. Tagged red blood cells revealed no active GI bleeding. White count 7.7. Platelets 171. Sodium 139. Potassium 3.8. Bicarb 24. BUN 11. Creatinine 0.90. Glucose 124. She is continued on IV Protonix. Receiving iron supplements. The patient is seen today today 05/23/2023 in follow-up on the regular medical floor. She was transferred out of the ICU yesterday. She is awake and alert in no acute distress. Maintaining O2 saturations in the 90s on room air. She's been afebrile. Hemodynamically stable. Her hemoglobin is drifted down to 6.9 today. She is receiving a third unit of packed red blood cells. She did undergo a capsule study initiated this morning. White count 7.9. Platelets 215. She is continued on Protonix IV push twice daily. The patient is seen today 05/24/2023 in follow-up on the regular medical floor. She is currently sitting up in bread of having breakfast. She denies any worsening shortness of breath, cough or congestion. Maintaining good O2 saturations in the 90s on room air. She did undergo capsule endoscopy throughout the past 24 hours. Results are pending. She is status post 3 units of packed red blood cells this admission. Current hemoglobin 7.9. She remains on Protonix. Receiving iron supplements. The patient is seen today 05/25/2023 in follow-up on the regular medical floor. She is resting comfortably in bed. Awake and alert in no acute distress. She is maintaining good O2 saturations in the 90s on room air. No active GI bleeding noted. EGD revealed gastritis and hiatal hernia and colonoscopy showed scattered reticular prognosis small colon polyps and blood throughout the colon. Tagged RBC scan was negative. She had also undergone a small bowel video capsule endoscopy. White count 9.2. Hemoglobin 7.2. Platelets 235. Continued on IV Protonix. Continued with iron supplements. Objective - Vital Signs Vital signs: Vital Signs Temp 98.7 F 05/25/23 07:24 Pulse 92 05/25/23 07:24 Resp 16 05/25/23 07:24 BP 135/73 05/25/23 07:24 Pulse Ox 99 05/25/23 07:24 FiO2 Intake & Output 05/24/23 05/25/23 05/25/23 18:59 06:59 18:59 Intake Total 100 1000 Balance 100 1000 Intake: Intake, IV Titration 100 Amount Sodium Ferric Gluconat- 100 Sucrose 125 mg In Sodium Chloride 0.9% 100 ml @ 100 mls/hr IVPB DAILY [facility] Rx#:[id number] Oral 1000 Other: Voiding Method Toilet Toilet # Voids 3 2 # Bowel Movements 1 - Exam GENERAL EXAM: Alert, 82-year-old female patient, on room air, comfortable in no apparent distress. HEAD: Normocephalic. EYES: Normal reaction of pupils, equal size. NOSE: Clear with pink turbinates. THROAT: No erythema or exudates. NECK: No masses, no JVD. CHEST: No chest wall deformity. LUNGS: Equal air entry with no crackles, wheeze, rhonchi or dullness. CVS: S1 and S2 normal with no audible murmur, regular rhythm. ABDOMEN: No hepatosplenomegaly, normal bowel sounds, no guarding or rigidity. SPINE: No scoliosis or deformity SKIN: No rashes CENTRAL NERVOUS SYSTEM: No focal deficits, tone is normal in all 4 extremities. EXTREMITIES: There is no peripheral edema. No clubbing, no cyanosis. Peripheral pulses are intact. - Labs CBC & Chem 7: 05/25/23 05:59 05/22/23 03:45 Labs: Abnormal Lab Results - Last 24 Hours (Table) 05/25/23 Range/Units 05:59 RBC 2.51 L (4.10-5.20) X 10*6/uL Hgb 7.2 L (12.0-15.0) g/dL Hct 22.5 L (37.2-46.3) % RDW 17.3 H (11.5-14.5) % Assessment and Plan Assessment: Acute GI bleeding possibly upper GI in nature however the patient had negative diagnostic studies so far including EGD, colonoscopy, and tagged RBC study. Capsule study pending Acute blood loss anemia, patient received 3 units of packed RBCs since admission. Current hemoglobin 7.2 Benign essential hypertension Degenerative joint disease Dyslipidemia Plan: The patient was seen and evaluated Medications and labs reviewed Remains on Protonix Receiving iron supplements Currently stable and on room air Home once cleared by GI services This patient was seen independently by the nurse practitioner I have personally seen and examined the patient, performed the documentation and the assessment and plan as written. Number of minutes spent on the visit: 23.
[2023-05-25 15:08] VITALS: BP 145/75; PULSE 107; TEMP 97.8
--- NOTE | 2023-05-27 21:08 | DS ---
DISCHARGE SUMMARY CHIEF COMPLAINT: Dizziness. HISTORY OF PRESENT ILLNESS AND PHYSICAL EXAM: Details of this lady's history and physical can be found in the initial workup. LABORATORY STUDIES: While she was in the hospital, she had laboratory studies, details of which could be found in the laboratory section of her chart. COURSE IN THE HOSPITAL: After admission, she was placed on bedrest and suddenly developed anemia secondary to GI bleed. Consultations by Surgery. Colonoscopy but no obvious source of bleeding. Gastroenterology became available, they did a small bowel capsule . However, it was a consensus of opinion from Surgery and Gastroenterology that she could be discharged even though her hemoglobin was not clearly rising. She will go home . FINAL DIAGNOSES: 1. . 2. Blood loss anemia. 3. History of hypertension. 4. upper and lower GI endoscopies. CONSULTATION: General Surgery and Gastroenterology. MMRENEA / IJN: [id number] /
== END 2023-05-25 15:52 | disposition home or self-care (01) | DRG 378 ==
LOC: EC 09:35 → 6NMEDSUR 18:49 → 3SCARD 05-19 17:23 → 2SICU 05-21 01:35 → OBSVTOIN 05-22 07:37 → 5NMEDONC 05-22 10:50
PROVIDERS: ADMIT Family Medicine; ATTEND Family Medicine
PROC: 0DJD8ZZ Inspection of Lower Intestinal Tract, Via Natural or Artificial Opening Endoscopic (ICD-10-PCS; 2023-05-20)
PROC: 30233N1 Transfusion of Nonautologous Red Blood Cells into Peripheral Vein, Percutaneous Approach (ICD-10-PCS; 2023-05-20)
PROC: 0DB78ZX Excision of Stomach, Pylorus, Via Natural or Artificial Opening Endoscopic, Diagnostic (ICD-10-PCS; 2023-05-20)
PROC: 0DJ07ZZ Inspection of Upper Intestinal Tract, Via Natural or Artificial Opening (ICD-10-PCS; principal; 2023-05-23 07:00)
DX: K57.31 Diverticulosis of large intestine without perforation or abscess with bleeding (principal); D62 Acute posthemorrhagic anemia; I10 Essential (primary) hypertension; R07.9 Chest pain, unspecified; E78.5 Hyperlipidemia, unspecified; K44.9 Diaphragmatic hernia without obstruction or gangrene; K29.70 Gastritis, unspecified, without bleeding; K63.5 Polyp of colon; E86.0 Dehydration; H35.30 Unspecified macular degeneration; M17.12 Unilateral primary osteoarthritis, left knee; R42 Dizziness and giddiness; M75.51 Bursitis of right shoulder; Z87.19 Personal history of other diseases of the digestive system; Z90.710 Acquired absence of both cervix and uterus; Z98.51 Tubal ligation status; Z92.3 Personal history of irradiation
CPT/HCPCS: 36415; 43239; 45378; 78278; 80053; 81001; 82272; 83605; 83735; 84443; 84484; 85025; 85027; 85610; 85730; 86850; 86900; 86901; 86920; 88305; 88342; 91110; 96360; 96361; 99285

== ENCOUNTER 2023-09-14 09:10 | Emergency (ER) | payer MEDICARE ==
[2023-09-14 09:29] VITALS: RESP 18; TEMP 98.1
[2023-09-14 10:12] LABS: Basophils % (A) 1 %; Eosinophils # (A) 0.2 k/uL (0-0.7); Eosinophils % (A) 3 %; HCT 35.9 % (34.0-46.0); HGB 11.5 gm/dL (11.4-16.0); Lymphocytes # (A) 1.6 k/uL (1.0-4.8); Lymphocytes % (A) 31 %; MCHC 31.9 g/dL (31.0-37.0); MCV 87.7 fL (80.0-100.0); Mean Platelet Volume 7.7; Monocytes # (A) 0.3 k/uL (0-1.0); Monocytes % (A) 6 %; Neutrophils # (A) 2.9 k/uL (1.3-7.7); Neutrophils % (A) 56 %; Platelet Count 268 k/uL (150-450); RDW 15.3 % (11.5-15.5); WBC 5.2 k/uL (3.8-10.6)
[2023-09-14] MEDS: SODIUM CHLORIDE 0.9% 1,000 ML IV STA (10:12)
--- NOTE | 2023-09-14 10:21 | ED ---
Dizziness HPI - General Chief Complaint: Dizziness Stated Complaint: SOB/Dizziness Time Seen by Provider: 09/14/23 09:22 Source: patient, RN notes reviewed Mode of arrival: ambulatory Limitations: no limitations - History of Present Illness Initial Comments: This is an 82-year-old female who presents to the emergency department for dizziness, weakness, and shortness of breath over the last couple of days. Yesterday states that she felt like she had palpitations. Denies any chest pain or pain elsewhere. She used to be on blood pressure medication, but stopped taking it when her blood pressure was better controlled. She had mild nausea associated with the dizziness yesterday that has since resolved. Denies any vomiting. Reports a hx of low hemoglobin last year that caused her to feel dizzy. MD Complaint: dizziness, lightheadedness - Related Data Home Medications Medication Instructions Recorded Confirmed Atenolol/Chlorthalidone 1 tab PO DAILY PRN 02/23/15 09/14/23 [Atenolol/Chlorthalidone 100-25] Ascorbic Acid [Vitamin C] 1,000 mg PO DAILY 04/08/23 09/14/23 Cholecalciferol [Vitamin D3 (25 25 mcg PO DAILY 04/08/23 09/14/23 Mcg = 1000 Iu)] Cyanocobalamin (Vitamin B-12) 1,000 mcg PO DAILY 04/08/23 09/14/23 [Vitamin B-12] Ferrous Sulfate [Iron (65 MG 325 mg PO Q2D 05/17/23 09/14/23 Elemental)] Calcium Carbonate [Calcium] 600 mg PO DAILY 05/18/23 09/14/23 Folic Acid 0.4 mg PO DAILY 05/18/23 09/14/23 Ginkgo Biloba [place] Extract [Ginkgo 125 mg PO DAILY 05/18/23 09/14/23 Biloba] Atorvastatin [Lipitor] 40 mg PO DAILY 09/14/23 09/14/23 Allergies Allergy/AdvReac Type Severity Reaction Status Date / Time Penicillins Allergy Rash/Hives/ Verified 09/14/23 10:15 Swelling Review of Systems ROS Statement: Those systems with pertinent positive or pertinent negative responses have been documented in the HPI. ROS Other: All systems not noted in ROS Statement are negative. 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 Past Anesthesia/Blood Transfusion Reactions: No Reported Reaction Past Psychological History: Anxiety Smoking Status: Never smoker Past Alcohol Use History: None Reported Past Drug Use History: None Reported - Past Family History Mother Additional Family Medical History / Comment(s): PNA, TB Father Family Medical History: No Reported History General Exam Limitations: no limitations General appearance: alert, in no apparent distress Head exam: Present: atraumatic, normocephalic, normal inspection Respiratory exam: Present: normal lung sounds bilaterally. Absent: respiratory distress, wheezes, rales, rhonchi, stridor Cardiovascular Exam: Present: regular rate, normal rhythm, normal heart sounds. Absent: systolic murmur, diastolic murmur, rubs, gallop, clicks Neurological exam: Present: alert, oriented X3, CN II-XII intact Psychiatric exam: Present: normal affect, normal mood Skin exam: Present: warm, dry, intact, normal color. Absent: rash Course Vital Signs 09/14/23 09/14/23 09:14 11:59 Temperature 98.1 F Pulse Rate 110 H 93 Respiratory 18 18 Rate Blood Pressure 175/78 143/71 O2 Sat by Pulse 100 96 Oximetry Medical Decision Making - Medical Decision Making This is an 82 year old female who presents to the emergency department for weakness and dizziness. Was pt. sent in by a medical professional or institution? @ -No Did you speak to anyone other than the patient for history? @ -No Did you review nursing and triage notes? @ -Yes, and I agree, it is accurate with regards to the patient's symptoms. Were old charts reviewed? @ -No Differential Diagnosis? @ -Differential Weakness: Hypoglycemia, shock, sepsis, hyponatremia, anemia, infection, CA, ETOH, adverse medicine reaction, overdose, stroke, this is not meant to be an all-inclusive list. EKG interpreted by me (3pts min.)? @ -EKG interpreted by me demonstrating the following: Sinus rhythm. Ventricular rate 92 bpm, DE interval 177 ms, QRS duration 85 ms, QTc 397 ms. X-rays interpreted by me (1pt min.)? @ -Chest x-ray obtained, my interpretation identifies no localized consolidations or infiltrates. CT interpreted by me (1pt min.)? @ -CT scan of the brain obtained. My interpretation identifies no evidence of an acute intracranial hemorrhage or mass effect. CTA of the chest obtained. My interpretation identifies no evidence of a pulmonary embolus. U/S interpreted by me (1pt. min.)? @ -Not obtained What testing was considered but not performed? (CT, X-rays, U/S, labs)? Why? @ -None What meds were considered but not given? Why? @ -None Did you discuss the management of the patient with other professionals? @ -No Did you reconcile home meds? @ -No Was smoking cessation discussed for >3mins.? @ -No Was critical care preformed (if so, how long)? @ -No Were there social determinants of health that impacted care today? How? (Homelessness, low income, unemployed, alcoholism, drug addiction, transportation, low edu. Level, literacy, decrease access to med. care, shelter, rehab)? @ -No Was there de-escalation of care discussed even if they declined? (Discuss DNR or withdrawal of care, Hospice)? @ -No What co-morbidities impacted this encounter? (DM, HTN, Smoking, COPD, CAD, Cancer, CVA, Hep., AIDS, mental health diagnosis, sleep apnea, morbid obesity)? @ -HTN, HLD Was patient admitted / discharged? @ -Discharged. Lab work demonstrates an elevated D-dimer of 0.99 and was otherwise unremarkable. COVID, influenza, and RSV testing were negative. Urinalysis negative for signs of infection. Chest x-ray reveals no acute process. Given the patient's symptoms with elevated D-dimer, CTA of the chest was obtained. This revealed no acute process. Patient given a liter bolus of IV fluids. Patient was evaluated here 2 months ago for similar symptoms, and workup at that time was unremarkable. Discussed with the patient that the cause of her symptoms is not entirely clear at this time. She is however comfortable with discharge home. Advised she discuss her concerns with her primary care provider and she was given strict return parameters. Undiagnosed new problem with uncertain prognosis? @ -None Drug Therapy requiring intensive monitoring for toxicity (Heparin, Nitro, Insulin, Cardizem)? @ -None Were any procedures done? @ -None Diagnosis/symptom? @ -Weakness Acute, or Chronic, or Acute on Chronic? @ -Acute Uncomplicated (without systemic symptoms) or Complicated (systemic symptoms)? @ -Uncomplicated Side effects of treatment? @ -None Exacerbation, Progression, or Severe Exacerbation] @ -Not applicable Poses a threat to life or bodily function? @ -No Return precautions reviewed in depth, the patient is instructed to return to the emergency department with any new, worsening, or concerning symptoms. Patient verbalized understanding. This case was discussed in detail with the attending ED physician, Dr. Dyer. Presentation, findings, and treatment plan discussed in detail as well. - Lab Data Result diagrams: 09/14/23 09:54 09/14/23 09:54 Lab Results 09/14/23 09/14/23 09/14/23 Range/Units 09:49 09:54 09:54 WBC 5.2 (3.8-10.6) k/uL RBC 4.10 (3.80-5.40) m/uL Hgb 11.5 (11.4-16.0) gm/dL Hct 35.9 (34.0-46.0) % MCV 87.7 (80.0-100.0) fL MCH 28.0 (25.0-35.0) pg MCHC 31.9 (31.0-37.0) g/dL RDW 15.3 (11.5-15.5) % Plt Count 268 (150-450) k/uL MPV 7.7 Neutrophils % 56 % Lymphocytes % 31 % Monocytes % 6 % Eosinophils % 3 % Basophils % 1 % Neutrophils # 2.9 (1.3-7.7) k/uL Lymphocytes # 1.6 (1.0-4.8) k/uL Monocytes # 0.3 (0-1.0) k/uL Eosinophils # 0.2 (0-0.7) k/uL Basophils # 0.0 (0-0.2) k/uL PT 10.8 (10.0-12.5) sec INR 1.0 (<1.2) D-Dimer 0.99 H (<0.60) mg/L FEU Sodium (137-145) mmol/L Potassium (3.5-5.1) mmol/L Chloride (98-107) mmol/L Carbon Dioxide (22-30) mmol/L Anion Gap mmol/L BUN (7-17) mg/dL Creatinine (0.52-1.04) mg/dL Est GFR (CKD-EPI)AfAm (>60 ml/min/1.73 sqM) Est GFR (CKD-EPI)NonAf (>60 ml/min/1.73 sqM) Glucose (74-99) mg/dL Plasma Lactic Acid Jose (0.7-2.0) mmol/L Calcium (8.4-10.2) mg/dL Magnesium (1.6-2.3) mg/dL Total Bilirubin (0.2-1.3) mg/dL AST (14-36) U/L ALT (4-34) U/L Alkaline Phosphatase (38-126) U/L Troponin I (0.000-0.034) ng/mL Total Protein (6.3-8.2) g/dL Albumin (3.5-5.0) g/dL Urine Color Urine Appearance (Clear) Urine pH (5.0-8.0) Ur Specific [place] (1.001-1.035) Urine Protein (Negative) Urine Glucose (UA) (Negative) Urine Ketones (Negative) Urine Blood (Negative) Urine Nitrite (Negative) Urine Bilirubin (Negative) Urine Urobilinogen (<2.0) mg/dL Ur Leukocyte Esterase (Negative) Influenza Type A (PCR) Not Detected (Not Detectd) Influenza Type B (PCR) Not Detected (Not Detectd) RSV (PCR) Not Detected (Not Detectd) SARS-CoV-2 (PCR) Not Detected (Not Detectd) 09/14/23 09/14/23 09/14/23 Range/Units 09:54 09:54 09:54 WBC (3.8-10.6) k/uL RBC (3.80-5.40) m/uL Hgb (11.4-16.0) gm/dL Hct (34.0-46.0) % MCV (80.0-100.0) fL MCH (25.0-35.0) pg MCHC (31.0-37.0) g/dL RDW (11.5-15.5) % Plt Count (150-450) k/uL MPV Neutrophils % % Lymphocytes % % Monocytes % % Eosinophils % % Basophils % % Neutrophils # (1.3-7.7) k/uL Lymphocytes # (1.0-4.8) k/uL Monocytes # (0-1.0) k/uL Eosinophils # (0-0.7) k/uL Basophils # (0-0.2) k/uL PT (10.0-12.5) sec INR (<1.2) D-Dimer (<0.60) mg/L FEU Sodium 137 (137-145) mmol/L Potassium 4.0 (3.5-5.1) mmol/L Chloride 104 (98-107) mmol/L Carbon Dioxide 27 (22-30) mmol/L Anion Gap 6 mmol/L BUN 15 (7-17) mg/dL Creatinine 0.87 (0.52-1.04) mg/dL Est GFR (CKD-EPI)AfAm 72 (>60 ml/min/1.73 sqM) Est GFR (CKD-EPI)NonAf 63 (>60 ml/min/1.73 sqM) Glucose 140 H (74-99) mg/dL Plasma Lactic Acid Jose 1.2 (0.7-2.0) mmol/L Calcium 9.6 (8.4-10.2) mg/dL Magnesium 1.7 (1.6-2.3) mg/dL Total Bilirubin 0.5 (0.2-1.3) mg/dL AST 29 (14-36) U/L ALT 26 (4-34) U/L Alkaline Phosphatase 60 (38-126) U/L Troponin I (0.000-0.034) ng/mL Total Protein 7.5 (6.3-8.2) g/dL Albumin 4.1 (3.5-5.0) g/dL Urine Color Colorless Urine Appearance Clear (Clear) Urine pH 6.5 (5.0-8.0) Ur Specific [place] 1.010 (1.001-1.035) Urine Protein Negative (Negative) Urine Glucose (UA) Negative (Negative) Urine Ketones Negative (Negative) Urine Blood Negative (Negative) Urine Nitrite Negative (Negative) Urine Bilirubin Negative (Negative) Urine Urobilinogen <2.0 (<2.0) mg/dL Ur Leukocyte Esterase Negative (Negative) Influenza Type A (PCR) (Not Detectd) Influenza Type B (PCR) (Not Detectd) RSV (PCR) (Not Detectd) SARS-CoV-2 (PCR) (Not Detectd) 09/14/23 Range/Units 09:54 WBC (3.8-10.6) k/uL RBC (3.80-5.40) m/uL Hgb (11.4-16.0) gm/dL Hct (34.0-46.0) % MCV (80.0-100.0) fL MCH (25.0-35.0) pg MCHC (31.0-37.0) g/dL RDW (11.5-15.5) % Plt Count (150-450) k/uL MPV Neutrophils % % Lymphocytes % % Monocytes % % Eosinophils % % Basophils % % Neutrophils # (1.3-7.7) k/uL Lymphocytes # (1.0-4.8) k/uL Monocytes # (0-1.0) k/uL Eosinophils # (0-0.7) k/uL Basophils # (0-0.2) k/uL PT (10.0-12.5) sec INR (<1.2) D-Dimer (<0.60) mg/L FEU Sodium (137-145) mmol/L Potassium (3.5-5.1) mmol/L Chloride (98-107) mmol/L Carbon Dioxide (22-30) mmol/L Anion Gap mmol/L BUN (7-17) mg/dL Creatinine (0.52-1.04) mg/dL Est GFR (CKD-EPI)AfAm (>60 ml/min/1.73 sqM) Est GFR (CKD-EPI)NonAf (>60 ml/min/1.73 sqM) Glucose (74-99) mg/dL Plasma Lactic Acid Jose (0.7-2.0) mmol/L Calcium (8.4-10.2) mg/dL Magnesium (1.6-2.3) mg/dL Total Bilirubin (0.2-1.3) mg/dL AST (14-36) U/L ALT (4-34) U/L Alkaline Phosphatase (38-126) U/L Troponin I <0.012 (0.000-0.034) ng/mL Total Protein (6.3-8.2) g/dL Albumin (3.5-5.0) g/dL Urine Color Urine Appearance (Clear) Urine pH (5.0-8.0) Ur Specific [place] (1.001-1.035) Urine Protein (Negative) Urine Glucose (UA) (Negative) Urine Ketones (Negative) Urine Blood (Negative) Urine Nitrite (Negative) Urine Bilirubin (Negative) Urine Urobilinogen (<2.0) mg/dL Ur Leukocyte Esterase (Negative) Influenza Type A (PCR) (Not Detectd) Influenza Type B (PCR) (Not Detectd) RSV (PCR) (Not Detectd) SARS-CoV-2 (PCR) (Not Detectd) - Radiology Data Radiology results: report reviewed, image reviewed Disposition Clinical Impression: Dizziness, Weakness Disposition: HOME SELF-CARE Instructions (If sedation given, give patient instructions): Dizziness (ED) Additional Instructions: Return to the emergency department with any new, worsening, or concerning symptoms. Follow up with your primary care provider in 1-2 days. Is patient prescribed a controlled substance at d/c from ED?: No Referrals: Solo Hernandez MD [Primary Care Provider] - 1-2 days Time of Disposition: 11:51
[2023-09-14 10:26] LABS: Prothrombin Time 10.8 sec (10.0-12.5)
[2023-09-14 10:38] LABS: Appearance,Urine Clear (Clear); Bilirubin,Urine Negative (Negative); Blood,Urine Negative (Negative); Color,Urine Colorless; Glucose,Urine (UA) Negative (Negative); Ketones,Urine Negative (Negative); Leukocyte Esterase,Urine Negative (Negative); Nitrite,Urine Negative (Negative); PH, Urine 6.5 (5.0-8.0); Protein,Urine Negative (Negative); Urobilinogen,Urine <2.0 mg/dL (<2.0)
[2023-09-14 10:48] LABS: ALT 26 U/L (4-34); AST 29 U/L (14-36); African American GFR (CKD) 72 (>60 ml/min/1.73 sqM); Albumin 4.1 g/dL (3.5-5.0); Alkaline Phosphatase 60 U/L (38-126); Anion Gap 6 mmol/L; Blood Urea Nitrogen 15 mg/dL (7-17); Calcium 9.6 mg/dL (8.4-10.2); Carbon Dioxide 27 mmol/L (22-30); Chloride 104 mmol/L (98-107); Glucose 140 mg/dL (74-99); Magnesium 1.7 mg/dL (1.6-2.3); Non-African American GFR(CKD) 63 (>60 ml/min/1.73 sqM); Sodium 137 mmol/L (137-145); Total Bilirubin 0.5 mg/dL (0.2-1.3); Total Protein 7.5 g/dL (6.3-8.2)
--- NOTE | 2023-09-14 10:49 | XR ---
EXAMINATION TYPE: XR chest 2V DATE OF EXAM: 09/14/2023 COMPARISON: 08/01/2023 TECHNIQUE: PA and lateral views submitted. HISTORY: Difficulty breathing FINDINGS: The lungs are clear and there is no pneumothorax, pleural effusion, or focal pneumonia. Heart size normal and no overt failure. Osseous structures demonstrate hypertrophic and degenerative changes of the spine. Calcified granuloma left lower lobe. Diffuse osteopenia and arthropathy of the shoulders. IMPRESSION: 1. No acute process.
--- NOTE | 2023-09-14 11:10 | CT ---
EXAMINATION TYPE: CT brain wo con DATE OF EXAM: 09/14/2023 COMPARISON: 04/13/2019 HISTORY: DIZZINESS AND WEAKNESS CT DLP: 1096.4 mGycm Automated exposure control for dose reduction was used. FINDINGS: The ventricles, basal cisterns and sulci over convexities are within normal limits and there is no ma ss effect or shift of midline structures. There is stable calcification of basal ganglia. There is no acute intra or extra-axial hemorrhage. Posterior fossa is grossly normal. The intraorbital contents are normal. Visualized paranasal sinuses and mastoid air cells are well aerated. IMPRESSION: No acute bleed or mass effect and no interval change compared to the prior study.
--- NOTE | 2023-09-14 11:19 | CT ---
EXAMINATION TYPE: CT chest angio for PE DATE OF EXAM: 09/14/2023 COMPARISON: 08/01/2023 HISTORY: ZAYNAB, tachycardia, elevated d-dimer CT DLP: 427 mGycm Automated exposure control for dose reduction was used. CONTRAST: CT Chest for pulmonary embolism performed with with IV Contrast, patient injected with 76ml mL of Iso dayne 370. FINDINGS: There are no filling defects within the pulmonary arteries or segmental branches. The great vessels chest are normal. There is no mediastinal, hilar or axillary adenopathy. There is no suspicious lung mass or nodule. There is no airspace opacity. There is mild subpleural reticulation in the lung bases posteriorly with mild bronchiectasis in the l ower lobes. There are no pleural effusion or pneumothorax. The osseous structures are intact. Limited scans the upper abdomen reveals no gross abnormality. IMPRESSION: 1. No evidence of pulmonary embolism. 2. mild chronic changes in the lung bases as described. 3. No acute cardiopulmonary disease. 4. No significant interval change.
[2023-09-14 12:17] VITALS: BP 143/71; PULSE 93
== END 2023-09-14 12:00 | disposition home or self-care (01) ==
LOC: EC 09:10
DX: R42 Dizziness and giddiness (principal); R53.1 Weakness; Z88.0 Allergy status to penicillin
CPT/HCPCS: 36415; 93005; 85379; 80053; 83605; 83735; 84484; 85025; 85610; 81003; 87636; 71046; 70450; 71275; 99284; 96360; Q9967

== ENCOUNTER 2023-11-11 08:24 | Emergency (ER) | payer MEDICARE ==
--- NOTE | 2023-11-11 08:51 | ED ---
General Adult HPI - General Chief complaint: Dizziness Stated complaint: lightheaded Time Seen by Provider: 11/11/23 08:30 Source: patient, RN notes reviewed, old records reviewed Mode of arrival: ambulatory Limitations: no limitations - History of Present Illness Initial comments: This is an 82-year-old female who presents to the emergency department c omplaining about feeling lightheaded over the last couple of days. Patient has a history of anemia. Patient states this morning it was worse. Patient states she is not short of breath unless she starts to move around. Patient denies any chest pain. Patient denies any fever or chills. Patient denies any abdominal pain patient has nausea vomiting or diarrhea. Patient denies any black or blood y stools. - Related Data Home Medications Medication Instructions Recorded Confirmed Atenolol/Chlorthalidone 1 tab PO DAILY PRN 02/23/15 11/11/23 [Atenolol/Chlorthalidone 100-25] Ascorbic Acid [Vitamin C] 1,000 mg PO DAILY 04/08/23 11/11/23 Cyanocobalamin (Vitamin B-12) 1,000 mcg PO DAILY 04/08/23 11/11/23 [Vitamin B-12] Ferrous Sulfate [Iron (65 MG 325 mg PO Q2D 05/17/23 11/11/23 Elemental)] Ginkgo Biloba [place] Extract [Ginkgo 125 mg PO DAILY 05/18/23 11/11/23 Biloba] Atorvastatin [Lipitor] 40 mg PO DAILY 09/14/23 11/11/23 Allergies Allergy/AdvReac Type Severity Reaction Status Date / Time Penicillins Allergy Rash/Hives/ Verified 11/11/23 09:05 Swelling Review of Systems ROS Statement: Those systems with pertinent positive or pertinent negative responses have been documented in the HPI. ROS Other: All systems not noted in ROS Statement are negative. 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 Past Anesthesia/Blood Transfusion Reactions: No Reported Reaction Past Psychological History: Anxiety Smoking Status: Never smoker Past Alcohol Use History: None Reported Past Drug Use History: None Reported - Past Family History Mother Additional Family Medical History / Comment(s): PNA, TB Father Family Medical History: No Reported History General Exam - General Exam Comments Initial Comments: GENERAL: Patient is well-developed and well-nourished. Patient is nontoxic and well- hydrated and is in mild distress. ENT: Neck is soft and supple. No significant lymphadenopathy is noted. Oropharynx is clear. Moist mucous membranes. Neck has full range of motion without eliciting any pain. EYES: The sclera were anicteric and conjunctiva were pink and moist. Extraocular movements were intact and pupils were equal round and reactive to light. Eyelids were unremarkable. PULMONARY: Unlabored respirations. Good breath sounds bilaterally. No audible rales rhonchi or wheezing was noted. CARDIOVASCULAR: Patient is tachycardic at 110 beats a minute.. ABDOMEN: Soft and nontender with normal bowel sounds. SKIN: Patient appears mildly pale NEUROLOGIC: Patient is alert and oriented x3. Cranial nerves II through XII are grossly in tact. Motor and sensory are also intact. Normal speech, volume and content. Symmetrical smile. MUSCULOSKELETAL: Normal extremities with adequate strength and full range of motion. LYMPHATICS: No significant lymphadenopathy is noted PSYCHIATRIC: Normal psychiatric evaluation. Limitations: no limitations Course Vital Signs 11/11/23 11/11/23 11/11/23 08:26 08:34 10:35 Temperature 97.8 F 98.3 F Pulse Rate 118 H 117 H 76 Pulse Rate [ 108 H Retail Account Representative ] Respiratory 20 18 16 Rate Blood Pressure 166/83 167/97 155/75 O2 Sat by Pulse 98 98 95 Oximetry 11/11/23 11:22 Temperature Pulse Rate 92 Pulse Rate [ Retail Account Representative ] Respiratory 16 Rate Blood Pressure 137/70 O2 Sat by Pulse 95 Oximetry Medical Decision Making - Medical Decision Making EKG is interpreted by myself. EKG shows a sinus rhythm at 98 bpm [place] 167 QRS is 86 QT interval 336 QTc is 391. Patient's EKG shows no ST segment elevation or depression Was pt. sent in by a medical professional or institution (, PA, SPANNER OPERATOR, urgent care, hospital, or long term...) When possible be specific @ -No Did you speak to anyone other than the patient for history (EMS, parent, family, police, friend...)? What history was obtained from this source @ -No Did you review nursing and triage notes (agree or disagree)? Why? @ -I reviewed and agree with nursing and triage notes Were old charts reviewed (outside hosp., previous admission, EMS record, old EKG, old radiological studies, urgent care reports/EKG's, long term records)? Report findings @ -I compared the patient's hemoglobin today from the prior admission and hemoglobin today is much improved in May it was 6.8. Differential Diagnosis (chest pain, altered mental status, abdominal pain women, abdominal pain men, vaginal bleeding, weakness, fever, dyspnea, syncope, he adache, dizziness, GI bleed, back pain, seizure, CVA, palpatations, mental health, musculoskeletal)? @ -Differential Dizziness: Benign paroxysmal positional Vertigo, Menieres disease, otitis media, acoustic neuroma, vertebrobasilar insufficiency, cerebellar stroke, encephalitis, hypovolemic, arrhythmia, coronary artery syndrome, anemia, this is not meant to be an all-inclusive list EKG interpreted by me (3pts min.). @ -As above X-rays interpreted by me (1pt min.). @ -Chest x-ray shows no acute abnormality CT interpreted by me (1pt min.). @ -CT of the chest showed no PE. U/S interpreted by me (1pt. min.). @ -None done What testing was considered but not performed or refused? (CT, X-rays, U/S, labs)? Why? @ -None What meds were considered but not given or refused? Why? @ -None Did you discuss the management of the patient with other professionals (professionals i.e. , PA, SPANNER OPERATOR, lab, RT, psych nurse, licensed social worker, honing machine operator production, teacher, police officer, case worker)? Give summary @ -No Was smoking cessation discussed for >3mins.? @ -No Was critical care preformed (if so, how long)? @ -No Were there social determinants of health that impacted care today? How? (Homelessness, low income, unemployed, alcoholism, drug addiction, transportation, low edu. Level, literacy, decrease access to med. care, custodial, rehab)? @ -No Was there de-escalation of care discussed even if they declined (Discuss DNR or withdrawal of care, Hospice)? DNR status @ -No What co-morbidities impacted this encounter? (DM, HTN, Smoking, COPD, CAD, Cancer, CVA, ARF, Chemo, Hep., AIDS, mental health diagnosis, sleep apnea, morbid obesity)? @ -None Was patient admitted / discharged? Hospital course, mention meds given and route, prescriptions, significant lab abnormalities, going to OR and other pertinent info. @ -Patient's sodium was slightly low I gave the patient a liter of fluid. Patient got up ambulated after having a little breakfast and was feeling fine she had no dizziness and wanted to be discharged home Undiagnosed new problem with uncertain prognosis? @ -No Drug Therapy requiring intensive monitoring for toxicity (Heparin, Nitro, Insulin, Cardizem)? @ -No Were any procedures done? @ -No Diagnosis/symptom? @ -Dizziness Acute, or Chronic, or Acute on Chronic? @ -acute Uncomplicated (without systemic symptoms) or Complicated (systemic symptoms)? @ -Complicated Side effects of treatment? @ -No Exacerbation, Progression, or Severe Exacerbation? @ -No Poses a threat to life or bodily function? How? (Chest pain, [place], [place], pneumonia, PE, COPD, DKA, ARF, appy, cholecystitis, CVA, Diverticulitis, Homicidal, Suicidal, threat to staff... and all critical care pts) @ -No - Lab Data Result diagrams: 11/11/23 09:00 11/11/23 08:59 Lab Results 11/11/23 11/11/23 11/11/23 Range/Units 08:59 08:59 08:59 WBC (3.8-10.6) k/uL RBC (3.80-5.40) m/uL Hgb (11.4-16.0) gm/dL Hct (34.0-46.0) % MCV (80.0-100.0) fL MCH (25.0-35.0) pg MCHC (31.0-37.0) g/dL RDW (11.5-15.5) % Plt Count (150-450) k/uL MPV Neutrophils % % Lymphocytes % % Monocytes % % Eosinophils % % Basophils % % Neutrophils # (1.3-7.7) k/uL Lymphocytes # (1.0-4.8) k/uL Monocytes # (0-1.0) k/uL Eosinophils # (0-0.7) k/uL Basophils # (0-0.2) k/uL PT 11.2 (10.0-12.5) sec INR 1.0 (<1.2) APTT 26.9 (22.0-30.0) sec D-Dimer 0.98 H (<0.60) mg/L FEU Sodium 130 L (137-145) mmol/L Potassium 4.2 (3.5-5.1) mmol/L Chloride 98 (98-107) mmol/L Carbon Dioxide 25 (22-30) mmol/L Anion Gap 7 mmol/L BUN 10 (7-17) mg/dL Creatinine 0.85 (0.52-1.04) mg/dL Est GFR (CKD-EPI)AfAm 75 (>60 ml/min/1.73 sqM) Est GFR (CKD-EPI)NonAf 65 (>60 ml/min/1.73 sqM) Glucose 151 H (74-99) mg/dL Plasma Lactic Acid Jose 1.3 (0.7-2.0) mmol/L Calcium 9.8 (8.4-10.2) mg/dL Magnesium 1.7 (1.6-2.3) mg/dL Total Bilirubin 0.8 (0.2-1.3) mg/dL AST 26 (14-36) U/L ALT 17 (4-34) U/L Alkaline Phosphatase 69 (38-126) U/L Troponin I (0.000-0.034) ng/mL NT-Pro-B Natriuret Pep <20 pg/mL Total Protein 8.0 (6.3-8.2) g/dL Albumin 4.7 (3.5-5.0) g/dL Blood Type Blood Type Recheck Bld Type Recheck Status Antibody Screen Spec Expiration Date 11/11/23 11/11/23 11/11/23 Range/Units 08:59 09:00 09:00 WBC 4.4 (3.8-10.6) k/uL RBC 4.07 (3.80-5.40) m/uL Hgb 11.3 L (11.4-16.0) gm/dL Hct 35.1 (34.0-46.0) % MCV 86.3 (80.0-100.0) fL MCH 27.7 (25.0-35.0) pg MCHC 32.0 (31.0-37.0) g/dL RDW 13.6 (11.5-15.5) % Plt Count 262 (150-450) k/uL MPV 8.1 Neutrophils % 54 % Lymphocytes % 36 % Monocytes % 6 % Eosinophils % 2 % Basophils % 1 % Neutrophils # 2.4 (1.3-7.7) k/uL Lymphocytes # 1.6 (1.0-4.8) k/uL Monocytes # 0.3 (0-1.0) k/uL Eosinophils # 0.1 (0-0.7) k/uL Basophils # 0.0 (0-0.2) k/uL PT (10.0-12.5) sec INR (<1.2) APTT (22.0-30.0) sec D-Dimer (<0.60) mg/L FEU Sodium (137-145) mmol/L Potassium (3.5-5.1) mmol/L Chloride (98-107) mmol/L Carbon Dioxide (22-30) mmol/L Anion Gap mmol/L BUN (7-17) mg/dL Creatinine (0.52-1.04) mg/dL Est GFR (CKD-EPI)AfAm (>60 ml/min/1.73 sqM) Est GFR (CKD-EPI)NonAf (>60 ml/min/1.73 sqM) Glucose (74-99) mg/dL Plasma Lactic Acid Jose (0.7-2.0) mmol/L Calcium (8.4-10.2) mg/dL Magnesium (1.6-2.3) mg/dL Total Bilirubin (0.2-1.3) mg/dL AST (14-36) U/L ALT (4-34) U/L Alkaline Phosphatase (38-126) U/L Troponin I <0.012 (0.000-0.034) ng/mL NT-Pro-B Natriuret Pep pg/mL Total Protein (6.3-8.2) g/dL Albumin (3.5-5.0) g/dL Blood Type O Positive Blood Type Recheck O Pos Bld Type Recheck Status No Antibody Screen NEGATIVE Spec Expiration Date 11/14/20232299 Disposition Clinical Impression: Dizziness Disposition: HOME SELF-CARE Condition: Good Instructions (If sedation given, give patient instructions): Dizziness (ED) Is patient prescribed a controlled substance at d/c from ED?: No Referrals: Solo Hernandez MD [Primary Care Provider] - 1-2 days Time of Disposition: 12:22
[2023-11-11 09:26] LABS: ALT 17 U/L (4-34); AST 26 U/L (14-36); African American GFR (CKD) 75 (>60 ml/min/1.73 sqM); Albumin 4.7 g/dL (3.5-5.0); Alkaline Phosphatase 69 U/L (38-126); Anion Gap 7 mmol/L; Blood Urea Nitrogen 10 mg/dL (7-17); Calcium 9.8 mg/dL (8.4-10.2); Carbon Dioxide 25 mmol/L (22-30); Chloride 98 mmol/L (98-107); Glucose 151 mg/dL (74-99); Magnesium 1.7 mg/dL (1.6-2.3); Non-African American GFR(CKD) 65 (>60 ml/min/1.73 sqM); Potassium 4.2 mmol/L (3.5-5.1); Sodium 130 mmol/L (137-145); Total Bilirubin 0.8 mg/dL (0.2-1.3)
[2023-11-11 09:28] LABS: Partial Thromboplastin Time 26.9 sec (22.0-30.0); Prothrombin Time 11.2 sec (10.0-12.5)
[2023-11-11 09:33] LABS: Basophils % (A) 1 %; Eosinophils # (A) 0.1 k/uL (0-0.7); Eosinophils % (A) 2 %; HCT 35.1 % (34.0-46.0); HGB 11.3 gm/dL (11.4-16.0); Lymphocytes # (A) 1.6 k/uL (1.0-4.8); Lymphocytes % (A) 36 %; MCH 27.7 pg (25.0-35.0); MCV 86.3 fL (80.0-100.0); Mean Platelet Volume 8.1; Monocytes # (A) 0.3 k/uL (0-1.0); Monocytes % (A) 6 %; Neutrophils # (A) 2.4 k/uL (1.3-7.7); Neutrophils % (A) 54 %; Platelet Count 262 k/uL (150-450); RBC 4.07 m/uL (3.80-5.40); RDW 13.6 % (11.5-15.5); WBC 4.4 k/uL (3.8-10.6)
[2023-11-11 09:33] LABS: NT-Pro-B-Type Natriuretic Pept <20 pg/mL
--- NOTE | 2023-11-11 09:36 | XR ---
EXAMINATION TYPE: XR chest 2V DATE OF EXAM: 11/11/2023 9:18 AM CLINICAL INDICATION:Female, 82 years old with history of difficulty breathing; [facility] COMPARISON: Chest radiographs from 09/14/2023 TECHNIQUE: XR chest 2V Frontal and lateral views of the chest. FINDINGS: Lungs/Pleura: There is no evidence of pleural effusion, focal consolidation, or pneumothorax. Pulmonary vascularity: Unremarkable. Heart/mediastinum: Cardiomediastinal silhouette is unremarkable. Musculoskeletal: No acute osseous pathology. IMPRESSION: No acute cardiopulmonary disease/process.
[2023-11-11] MEDS: SODIUM CHLORIDE 0.9% 1,000 ML IV ONE (10:18)
[2023-11-11 10:36] VITALS: RESP 16
--- NOTE | 2023-11-11 11:34 | CT ---
EXAMINATION TYPE: CT chest angio for PE CT DLP: 291.8 mGycm, Automated exposure control for dose reduction was used. DATE OF EXAM: 11/11/2023 11:11 AM COMPARISON: 09/14/2023. CLINICAL INDICATION:Female, 82 years old with history of Dizzy, short of breath; Dizzy, short of uli th and elevated d-dimer TECHNIQUE/CONTRAST: CTA scan of the thorax is performed with IV Contrast, patient injected with 70ml mL of Isovue 370, [place] P images are created and reviewed these are created on a separate workstation.. FINDINGS: Pulmonary Artery: There is no evidence for a filling defect within the pulmonary vasculature to sugge st acute pulmonary embolism. The pulmonary artery is of normal size. Lungs/Pleura: No evidence of focal consolidation, pleural effusion or pneumothorax. Left calcified gr anuloma in the lower lobe. Airway: Large airways are patent. Mild bronchiectasis in the lung bases. Mild centrilobular emphysema changes. Heart: Heart is within normal limits for size. Mild atherosclerosis of the coronary arteries. Vasculature: No evidence of aortic aneurysm. Mediastinum: No gross evidence of adenopathy. Partially calcified lymph node in the subcarinal region . Musculoskeletal: No acute osseous abnormalities Soft Tissues/lymph nodes: Unremarkable. Lower neck: No significant findings. Upper Abdomen: No significant findings. IMPRESSION: 1. No evidence of pulmonary embolism. 2. COPD and evidence of chronic granulomatous disease.
[2023-11-11 12:37] VITALS: BP 166/86; PULSE 100; TEMP 98.8
== END 2023-11-11 12:35 | disposition home or self-care (01) ==
LOC: EC 08:24
DX: R42 Dizziness and giddiness (principal); Z88.0 Allergy status to penicillin
CPT/HCPCS: 36415; 93005; 86900; 86901; 85379; 83880; 80053; 83605; 83735; 84484; 85025; 85610; 85730; 86850; 71046; 71275; 99285; 96360; Q9967

== ENCOUNTER 2023-12-17 08:55 | Emergency (ER) | payer MEDICARE ==
[2023-12-17 08:59] VITALS: TEMP 98.1
--- NOTE | 2023-12-17 09:29 | ED ---
General Adult HPI - General Chief complaint: Dizziness Stated complaint: Dizziness Time Seen by Provider: 12/17/23 09:00 Source: patient, family, RN notes reviewed, old records reviewed Mode of arrival: ambulatory Limitations: no limitations - History of Present Illness Initial comments: This is an 83-year-old female who presents to the emergency department stating for the last few days she has been very weak. Patient states she has been anemic in the past and this is what this feels like. Patient denies any abdominal pain. Patient denies any dysuria hematuria urinary frequency. Patient denies any shortness of breath chest pain or palpitations. Patient denies any abdominal pain patient has nausea vomit diarrhea. - Related Data Home Medications Medication Instructions Recorded Confirmed Atenolol/Chlorthalidone 1 tab PO DAILY PRN 02/23/15 11/11/23 [Atenolol/Chlorthalidone 100-25] Ascorbic Acid [Vitamin C] 1,000 mg PO DAILY 04/08/23 11/11/23 Cyanocobalamin (Vitamin B-12) 1,000 mcg PO DAILY 04/08/23 11/11/23 [Vitamin B-12] Ferrous Sulfate [Iron (65 MG 325 mg PO Q2D 05/17/23 11/11/23 Elemental)] Ginkgo Biloba [place] Extract [Ginkgo 125 mg PO DAILY 05/18/23 11/11/23 Biloba] Atorvastatin [Lipitor] 40 mg PO DAILY 09/14/23 11/11/23 Allergies Allergy/AdvReac Type Severity Reaction Status Date / Time Penicillins Allergy Rash/Hives/ Verified 11/11/23 09:05 Swelling Review of Systems ROS Statement: Those systems with pertinent positive or pertinent negative responses have been documented in the HPI. ROS Other: All systems not noted in ROS Statement are negative. 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 Past Anesthesia/Blood Transfusion Reactions: No Reported Reaction Past Psychological History: Anxiety Smoking Status: Never smoker Past Alcohol Use History: None Reported Past Drug Use History: None Reported - Past Family History Mother Additional Family Medical History / Comment(s): PNA, TB Father Family Medical History: No Reported History General Exam - General Exam Comments Initial Comments: GENERAL: Patient is well-developed and well-nourished. Patient is nontoxic and well-hydrated and is in mild distress. ENT: Neck is soft and supple. No significant lymphadenopathy is noted. Oropharynx is clear. Moist mucous membranes. Neck has full range of motion without eliciting any pain. EYES: The sclera were anicteric and conjunctiva were pink and moist. Extraocular movements were intact and pupils were equal round and reactive to light. Eyelids were unremarkable. PULMONARY: Unlabored respirations. Good breath sounds bilaterally. No audible rales rhonchi or wheezing was noted. CARDIOVASCULAR: There is a regular rate and rhythm without any murmurs gallops or rubs. ABDOMEN: Soft and nontender with normal bowel sounds. SKIN: Skin is clear with no lesions or rashes and otherwise unremarkable. NEUROLOGIC: Patient is alert and oriented x3. Cranial nerves II through XII are grossly intact. Motor and sensory are also intact. Normal speech, volume and content. Symmetrical smile. MUSCULOSKELETAL: Normal extremities with adequate strength and full range of motion. LYMPHATICS: No significant lymphadenopathy is noted PSYCHIATRIC: Normal psychiatric evaluation. Limitations: no limitations Course Vital Signs 12/17/23 12/17/23 08:57 10:13 Temperature 98.1 F Pulse Rate 120 H 96 Respiratory 20 Rate Blood Pressure 179/82 O2 Sat by Pulse 99 Oximetry Medical Decision Making - Medical Decision Making EKG is interpreted by myself. EKG shows a sinus rhythm at 99 bpm ID was [id number] QRS is 90 QT interval 332 QTc is 388. Patient's EKG shows no ST segment elevation Was pt. sent in by a medical professional or institution (, SARAH, DIGITAL CAMPAIGN MANAGER, urgent care, hospital, or snf...) When possible be specific @ -No Did you speak to anyone other than the patient for history (EMS, parent, family, police, friend...)? What history was obtained from this source @ -No Did you review nursing and triage notes (agree or disagree)? Why? @ -I reviewed and agree with nursing and triage notes Were old charts reviewed (outside hosp., previous admission, EMS record, old EKG, old radiological studies, urgent care reports/EKG's, snf records)? Report findings @ -No old charts were reviewed Differential Diagnosis? @ -Differential Weakness: Hypoglycemia, shock, sepsis, hyponatremia, anemia, infection, AL, ETOH, adverse medicine reaction, overdose, stroke, this is not meant to be an all-inclusive list. EKG interpreted by me (3pts min.). @ -As above X-rays interpreted by me (1pt min.). @ -None done CT interpreted by me (1pt min.). @ -None done U/S interpreted by me (1pt. min.). @ -None done What testing was considered but not performed or refused? (CT, X-rays, U/S, labs)? Why? @ -None What meds were considered but not given or refused? Why? @ -None Did you discuss the management of the patient with other professionals (professionals i.e. , PA, DIGITAL CAMPAIGN MANAGER, lab, RT, psych nurse, geriatric social work professor, weathercaster, teacher, wildlife conservation officer, case planner)? Give summary @ -No Was smoking cessation discussed for >3mins.? @ -No Was critical care preformed (if so, how long)? @ -No Were there social determinants of health that impacted care today? How? (Homelessness, low income, unemployed, alcoholism, drug addiction, transportation, low edu. Level, literacy, decrease access to med. care, [facility], rehab)? @ -No Was there de-escalation of care discussed even if they declined (Discuss DNR or withdrawal of care, Hospice)? DNR status @ -No What co-morbidities impacted this encounter? (DM, HTN, Smoking, COPD, CAD, Can cer, CVA, ARF, Chemo, Hep., AIDS, mental health diagnosis, sleep apnea, morbid obesity)? @ -None Was patient admitted / discharged? Hospital course, mention meds given and route, prescriptions, significant lab abnormalities, going to OR and other pertinent info. @ -Patient's lab work is all within normal range. Patient states she does not sleep very well and she is a worrier made as contributing to her weakness. Patient will follow-up with her primary medical care doctor. Undiagnosed new problem with uncertain prognosis? @ -No Drug Therapy requiring intensive monitoring for toxicity (Heparin, Nitro, Insulin, Cardizem)? @ -No Were any procedures done? @ -No Diagnosis/symptom? @ -Weakness Acute, or Chronic, or Acute on Chronic? @ -Acute Uncomplicated (without systemic symptoms) or Complicated (systemic symptoms)? @ -Complicated Side effects of treatment? @ -No Exacerbation, Progression, or Severe Exacerbation? @ -No Poses a threat to life or bodily function? How? (Chest pain, [place], [place], pneumonia, PE, COPD, DKA, ARF, appy, cholecystitis, CVA, Diverticulitis, Homicidal, Suicidal, threat to staff... and all critical care pts) @ -No - Lab Data Result diagrams: 12/17/23 09:29 12/17/23 09:29 Lab Results 12/17/23 12/17/23 12/17/23 Range/Units 09: 09: 09:29 WBC 4.1 (3.8-10.6) k/uL RBC 4.07 (3.80-5.40) m/uL Hgb 11.5 (11.4-16.0) gm/dL Hct 36.0 (34.0-46.0) % MCV 88.5 (80.0-100.0) fL MCH 28.3 (25.0-35.0) pg MCHC 32.0 (31.0-37.0) g/dL RDW 13.6 (11.5-15.5) % Plt Count 264 (150-450) k/uL MPV 7.3 Neutrophils % 55 % Lymphocytes % 34 % Monocytes % 6 % Eosinophils % 2 % Basophils % 1 % Neutrophils # 2.3 (1.3-7.7) k/uL Lymphocytes # 1.4 (1.0-4.8) k/uL Monocytes # 0.2 (0-1.0) k/uL Eosinophils # 0.1 (0-0.7) k/uL Basophils # 0.0 (0-0.2) k/uL PT 10.8 (10.0-12.5) sec INR 1.0 (<1.2) APTT 26.5 (22.0-30.0) sec Sodium 134 L (137-145) mmol/L Potassium 4.2 (3.5-5.1) mmol/L Chloride 101 (98-107) mmol/L Carbon Dioxide 27 (22-30) mmol/L Anion Gap 6 mmol/L BUN 17 (7-17) mg/dL Creatinine 0.88 (0.52-1.04) mg/dL Est GFR (CKD-EPI)AfAm 71 (>60 ml/min/1.73 sqM) Est GFR (CKD-EPI)NonAf 62 (>60 ml/min/1.73 sqM) Glucose 135 H (74-99) mg/dL Calcium 10.1 (8.4-10.2) mg/dL Magnesium (1.6-2.3) mg/dL Total Bilirubin 0.5 (0.2-1.3) mg/dL AST 23 (14-36) U/L ALT 15 (4-34) U/L Alkaline Phosphatase 59 (38-126) U/L Total Protein 7.8 (6.3-8.2) g/dL Albumin 4.4 (3.5-5.0) g/dL Urine Color Urine Appearance (Clear) Urine pH (5.0-8.0) Ur Specific [place] (1.001-1.035) Urine Protein (Negative) Urine Glucose (UA) (Negative) Urine Ketones (Negative) Urine Blood (Negative) Urine Nitrite (Negative) Urine Bilirubin (Negative) Urine Urobilinogen (<2.0) mg/dL Ur Leukocyte Esterase (Negative) Blood Type Blood Type Recheck Bld Type Recheck Status Antibody Screen Spec Expiration Date 12/17/23 12/17/23 12/17/23 Range/Units 09:29 09:35 11:23 WBC (3.8-10.6) k/uL RBC (3.80-5.40) m/uL Hgb (11.4-16.0) gm/dL Hct (34.0-46.0) % MCV (80.0-100.0) fL MCH (25.0-35.0) pg MCHC (31.0-37.0) g/dL RDW (11.5-15.5) % Plt Count (150-450) k/uL MPV Neutrophils % % Lymphocytes % % Monocytes % % Eosinophils % % Basophils % % Neutrophils # (1.3-7.7) k/uL Lymphocytes # (1.0-4.8) k/uL Monocytes # (0-1.0) k/uL Eosinophils # (0-0.7) k/uL Basophils # (0-0.2) k/uL PT (10.0-12.5) sec INR (<1.2) APTT (22.0-30.0) sec Sodium (137-145) mmol/L Potassium (3.5-5.1) mmol/L Chloride (98-107) mmol/L Carbon Dioxide (22-30) mmol/L Anion Gap mmol/L BUN (7-17) mg/dL Creatinine (0.52-1.04) mg/dL Est GFR (CKD-EPI)AfAm (>60 ml/min/1.73 sqM) Est GFR (CKD-EPI)NonAf (>60 ml/min/1.73 sqM) Glucose (74-99) mg/dL Calcium (8.4-10.2) mg/dL Magnesium 1.8 (1.6-2.3) mg/dL Total Bilirubin (0.2-1.3) mg/dL AST (14-36) U/L ALT (4-34) U/L Alkaline Phosphatase (38-126) U/L Total Protein (6.3-8.2) g/dL Albumin (3.5-5.0) g/dL Urine Color Colorless Urine Appearance Clear (Clear) Urine pH 7.5 (5.0-8.0) Ur Specific [place] 1.004 (1.001-1.035) Urine Protein Negative (Negative) Urine Glucose (UA) Negative (Negative) Urine Ketones Negative (Negative) Urine Blood Negative (Negative) Urine Nitrite Negative (Negative) Urine Bilirubin Negative (Negative) Urine Urobilinogen <2.0 (<2.0) mg/dL Ur Leukocyte Esterase Negative (Negative) Blood Type O Positive Blood Type Recheck O Pos Bld Type Recheck Status No Antibody Screen NEGATIVE Spec Expiration Date 12/20/20232334 Disposition Clinical Impression: Weakness Disposition: HOME SELF-CARE Condition: Good Instructions (If sedation given, give patient instructions): Weakness (ED) Is patient prescribed a controlled substance at d/c from ED?: No Referrals: Solo Hernandez MD [Primary Care Provider] - 1-2 days Time of Disposition: 12:00
[2023-12-17 09:46] LABS: Basophils % (A) 1 %; Eosinophils # (A) 0.1 k/uL (0-0.7); Eosinophils % (A) 2 %; HGB 11.5 gm/dL (11.4-16.0); Lymphocytes # (A) 1.4 k/uL (1.0-4.8); Lymphocytes % (A) 34 %; MCH 28.3 pg (25.0-35.0); MCV 88.5 fL (80.0-100.0); Mean Platelet Volume 7.3; Monocytes # (A) 0.2 k/uL (0-1.0); Monocytes % (A) 6 %; Neutrophils # (A) 2.3 k/uL (1.3-7.7); Neutrophils % (A) 55 %; Platelet Count 264 k/uL (150-450); RBC 4.07 m/uL (3.80-5.40); RDW 13.6 % (11.5-15.5); WBC 4.1 k/uL (3.8-10.6)
[2023-12-17 09:55] LABS: ALT 15 U/L (4-34); AST 23 U/L (14-36); African American GFR (CKD) 71 (>60 ml/min/1.73 sqM); Albumin 4.4 g/dL (3.5-5.0); Alkaline Phosphatase 59 U/L (38-126); Anion Gap 6 mmol/L; Blood Urea Nitrogen 17 mg/dL (7-17); Calcium 10.1 mg/dL (8.4-10.2); Carbon Dioxide 27 mmol/L (22-30); Chloride 101 mmol/L (98-107); Glucose 135 mg/dL (74-99); Non-African American GFR(CKD) 62 (>60 ml/min/1.73 sqM); Potassium 4.2 mmol/L (3.5-5.1); Sodium 134 mmol/L (137-145); Total Bilirubin 0.5 mg/dL (0.2-1.3); Total Protein 7.8 g/dL (6.3-8.2)
[2023-12-17 09:57] LABS: Partial Thromboplastin Time 26.5 sec (22.0-30.0); Prothrombin Time 10.8 sec (10.0-12.5)
[2023-12-17] MEDS: SODIUM CHLORIDE 0.9% 1,000 ML IV ONE (11:28)
[2023-12-17 11:31] LABS: Appearance,Urine Clear (Clear); Bilirubin,Urine Negative (Negative); Blood,Urine Negative (Negative); Color,Urine Colorless; Glucose,Urine (UA) Negative (Negative); Ketones,Urine Negative (Negative); Leukocyte Esterase,Urine Negative (Negative); Nitrite,Urine Negative (Negative); PH, Urine 7.5 (5.0-8.0); Protein,Urine Negative (Negative); Specific Gravity,Urine 1.004 (1.001-1.035); Urobilinogen,Urine <2.0 mg/dL (<2.0)
[2023-12-17 12:37] VITALS: BP 157/81; PULSE 92; RESP 16
== END 2023-12-17 12:57 | disposition home or self-care (01) ==
LOC: EC 08:55
DX: R53.1 Weakness (principal); Z88.0 Allergy status to penicillin
CPT/HCPCS: 36415; 80053; 81003; 83735; 85025; 85610; 85730; 86850; 86900; 86901; 96360; 99284

== ENCOUNTER → 2024-06-06 | Outpatient (CLI) | payer MEDICARE ==
[2024-06-06 08:28] LABS: Partial Thromboplastin Time 25.4 sec (22.0-30.0); Prothrombin Time 11.4 sec (10.0-12.5)
[2024-06-06 10:54] LABS: HCT 32.6 % (37.2-46.3); HGB 10.3 g/dL (12.0-15.0); MCHC 31.6 g/dL (32.0-37.0); MCV 85.3 FL (80.0-97.0); Mean Platelet Volume 9.6 FL (9.5-12.2); NRBC Per 100 WBC 0 X 10*3/uL (0.00-0.01); Platelet Count 330 X 10*3/uL (140-440); RBC 3.82 X 10*6/uL (4.10-5.20); RDW 13.5 % (11.5-14.5)
[2024-06-06 11:10] LABS: ALT 10 U/L (8-44); AST 16 U/L (13-35); Albumin 3.9 g/dL (3.8-4.9); Albumin/Globulin Ratio 1.26 Ratio (1.60-3.17); Alkaline Phosphatase 66 U/L (41-126); BUN/Creat Ratio 16.78 Ratio (12.00-20.00); Blood Urea Nitrogen 15.1 mg/dL (9.0-27.0); Calcium 9.4 mg/dL (8.7-10.3); Carbon Dioxide 24.7 mmol/L (21.6-31.8); Chloride 101 mmol/L (96-109); Globulin 3.1 g/dL (1.6-3.3); Glucose 137 mg/dL (70-110); Potassium 3.9 mmol/L (3.5-5.5); Sodium 136 mmol/L (135-145); Total Bilirubin 0.3 mg/dL (0.3-1.2)
== END | disposition home or self-care (01) ==
LOC: LABWHC1 07:29
PROVIDERS: ATTEND Orthopaedic Surgery
DX: Z01.818 Encounter for other preprocedural examination (principal); Z22.322 Carrier or suspected carrier of Methicillin resistant Staphylococcus aureus; M16.11 Unilateral primary osteoarthritis, right hip
CPT/HCPCS: 36415; 80053; 85027; 85610; 85730; 86850; 86900; 86901; 87070

== ENCOUNTER 2024-06-18 05:37 | Day surgery (SDC) | payer MEDICARE ==
[2024-06-12 12:20] VITALS: BMI 26.4
[~2024-06-18 05:37] MED LIST: TRANEXAMIC 1,000 MG/100ML-NACL 1,000 MG in SALINE 1 100ML.BAG IVPB PRN
[2024-06-18] MEDS ORDERED: LIDOCAINE 1% (10MG/ML) FOR IV START INTRADERMA PRN (06:17)
[2024-06-18] MEDS: ACETAMINOPHEN TAB 500 MG TAB PO PRN (06:19)
[2024-06-18] MEDS: GABAPENTIN 300 MG CAP PO PRN (06:20)
[2024-06-18] MEDS: MELOXICAM 7.5 MG TAB PO PRN (06:20)
[2024-06-18 06:33] LABS: Glucose,Whole Blood 118 mg/dL (70-110)
[2024-06-18] MEDS: DEXAMETHASONE SOD PHOSPHATE 4 MG/ML 1 ML VIAL IV ONE (06:33)
[2024-06-18] MEDS: LACTATED RINGERS 1,000 ML IV SCH (06:33)
[2024-06-18] MEDS: ONDANSETRON 4 MG/2 ML VIAL IVP ONE (06:33)
[2024-06-18] MEDS: MIDAZOLAM 2 MG/2 ML VIAL IV PRN (06:46)
[2024-06-18] MEDS ORDERED: SUCCINYLCHOLINE CHLORIDE 200 MG/10 ML VIAL IV ONE (06:55)
[2024-06-18] MEDS ORDERED: fentaNYL (PF) 50 MCG/ML 2 ML AMP ONE (06:55)
[2024-06-18] MEDS ORDERED: ROPIVACAINE 5 MG/ML 30 ML VIAL ONE (06:55)
[2024-06-18] MEDS ORDERED: LIDOCAINE 1% INJ 10MG/ML (20 ML MDV) ONE (06:55)
[2024-06-18] MEDS ORDERED: TRANEXAMIC 1,000 MG/100ML-NACL PREMIX BAG ONE (06:55)
[2024-06-18] MEDS ORDERED: DEXAMETHASONE SOD PHOSPHATE 4 MG/ML 1 ML VIAL ONE (06:55)
[2024-06-18] MEDS ORDERED: PROPOFOL 10 MG/ML 20 ML VIAL IV ONE (06:55)
[2024-06-18] MEDS ORDERED: ROCURONIUM 10 MG/ML (5 ML VIAL) IV ONE (06:55)
[2024-06-18] MEDS: ceFAZolin 1,000 MG in SODIUM CHLORIDE 0.9% 1,000 ML IRRIGATION ONE (06:59)
[2024-06-18] MEDS ORDERED: fentaNYL (PF) 50 MCG/ML 2 ML AMP IVP PRN (07:00)
[2024-06-18] MEDS: IV FLUID CONTINUATION 1,000 ML IV ONE (07:01)
[2024-06-18] MEDS: ROPIVACAINE 5 MG/ML 30 ML VIAL MISCELLANE ONE ×3 (07:05→08:15)
--- NOTE | 2024-06-18 08:18 | P.OP ---
Date of Procedure: 06/18/24 Preoperative Diagnosis: Severe osteoarthritis, right hip Postoperative Diagnosis: Severe osteoarthritis, right hip Procedure(s) Performed: Right total hip arthroplasty with a direct anterior approach Implants: [employer] Polarstem standard size 2 with a collar [employer] R3, multi hole hemispherical acetabular shell, 50 mm [employer] Reflection 6.5 mm cancellus screws, 20 mm 2, 15 mm, 25 mm [employer] R3, XLPE 20 acetabular liner [employer]hew Oxinium femoral head 36 mm, -3 All components were press-fit. The articulation is Oxinium on polyethylene. Anesthesia: GETA Surgeon: Gregory Hicks Commissioner Of Officials #1: Belkys Carlson Estimated Blood Loss (ml): 400 Pathology: none sent Condition: stable Disposition: PACU Indications for Procedure: After failure of conservative treatment we discussed the surgical and nonsurgical treatment options at length. Patient wishes to proceed with a total hip arthroplasty with a direct anterior approach. Complications specific to this procedure were discussed at length, including but not limited to infection, leg length discrepancy, dislocation, nerve injury, and fracture. Covid-19 was also discussed at length with the patient, and they are aware of the current policies and procedures. The patient was given the option of delaying surgery, but they elect to proceed knowing these risks. Patient is aware of all these complications and informed consent was obtained Operative Findings: The operative findings are consistent with severe osteoarthritis of the right hip Description of Procedure: The patient was seen and evaluated in the preoperative area and the consent was reviewed. The operative site was marked with a skin marker. The patient verified the procedure and operative site. A SILVIA block was placed by anesthesia in the preoperative area. The patient was then brought to the operating room and given preoperative antibiotics intravenously. 1 g of Tranexamic acid was also given intravenously. A general anesthetic was administered by the anesthesia department. The patient was then placed on the [place] table with the bony prominences well-padded. The hip area was then prepped with a ChloraPrep solution and draped in the usual sterile fashion. A universal timeout was then performed, which confirmed the patient's name, surgical site, ALLERGIES, and procedure being performed on the consent. Next the incision site was located at 1 cm distal and 4 cm lateral to the anterior superior iliac spine. The skin and subcutaneous tissues were sharply incised. Incision was carefully dissected down to the fascia overlying the tensor fascia jennifer muscle. This fascia was then incised in line with the muscle fibers. Care was taken to stay laterally in order to avoid injuring the lateral femoral cutaneous nerve. Next, using blunt finger dissection, the tensor fascia jennifer muscle was dissected off its investing fascia. The muscle was then carefully retracted laterally with a cobra retractor over the lateral neck of the femur. Next, the circumflex vessels were identified and cauterized using the Aquamantis device. The anterior hip capsule was then exposed. The capsule was then opened and an inverted T fashion. The retractors were then placed intracapsularly. The retractors were maintained intracapsular throughout the procedure. The proximal femur was then visualized. Fluoroscopic x-rays were then taken in order to evaluate the preoperative leg lengths. A small amount of traction was placed on the leg. The femoral neck was then osteotomized at the appropriate level above the lesser trochanter. A small wedge of bone was then removed from the remaining femoral head. Next, using a corkscrew the femoral head was removed from the acetabulum. On gross visual inspection, the femoral head had complete loss of articular cartilage and multiple periarticular osteophytes. The femoral head was then measured. Attention was then turned to the acetabulum. The acetabulum was exposed and any remaining labrum was excised. Sequential reaming of the acetabulum was performed using fluoroscopic guidance until there was a good bed of bleeding cancellus bone. When the appropriate size was reached, a trial was then placed. The position and fit of the trial was checked with fluoroscopy. The trial was then removed. Then, using fluoroscopic guidance, the final implant was impacted at 20 of anteversion and 40 of abduction, and fully seated in the acetabulum. Because of the significant bone loss in the acetabulum, multi hole acetabular component was used. 4 screws were then placed in the acetabulum. Again fluoroscopy was used to check position of the screws. Next, the liner was then impacted, with a 20 elevated liner located in the anterior superior quadrant. Component locking was confirmed. Attention was then directed to the femur. With the aid of the [place] table, the femur was externally rotated to approximately 130, extended, and adducted under the opposite leg. A side hook was then placed under the proximal femur, and the side hook elevator was used to elevate the proximal femur while releasing the capsule. Retractors were then placed. A capsular release was performed, as well as a release of the conjoined tendon, which afforded excellent visualization of the proximal femur. Next, a box osteotome was used to lateralize the proximal femur. A hand tier was then used to locate the femoral canal. Sequential broaching was then performed with appropriate size which afforded excellent fixation in the proximal femur. A trial was then placed with appropriate head and neck, and the hip was gently reduced with the aid of the [place] table. Fluoroscopy was then used to check position of the components, as well as to evaluate the leg lengths and offset. The leg lengths and offset were measured as closely as possible to ensure stability of the hip. The hip was then gently dislocated and the trials were then removed. Final implants were then impacted and the hip was again reduced. Final fluoroscopic x-rays confirmed that the components were in anatomic position. The leg lengths and offset were measured and were found to coincide with the trial measurements. The hip was also taken through range of motion, and found to be stable. The hip was then copiously irrigated with antibiotic solution with pulsatile lavage. The hip was then irrigated with Irrisept solution. The soft tissues were then injected with a ropivacaine solution. A second dose of 1 g of Tranexamic acid was also given intravenously. The fascia was then closed with 2-0 strata fix suture. The subcutaneous tissue was closed with 3-0 Vicryl. The subcuticular tissue was closed with 3-0 moncryl suture. The skin was then closed with Exofin skin glue. After the glue and dried, and Optifoam silver impregnated dressing was applied. The patient was then transferred to the recovery room in stable condition. The faculty i on call medical assistant SARAH Jolly was required due to the complexity of surgery, and the need for skilled surgical forceps fabricator for positioning, draping, exposure, retraction, and closure of the wound.
[2024-06-18] MEDS ORDERED: MAGNESIUM HYDROXIDE 2,400 MG/30 ML CUP PO PRN (08:40)
[2024-06-18] MEDS ORDERED: NALOXONE 0.4 MG/ML 1 ML VIAL IV PRN (08:40)
[2024-06-18] MEDS ORDERED: HYDROmorphone 0.5 MG/0.5 ML SYRINGE IVP PRN ×3 (08:40)
[2024-06-18] MEDS ORDERED: ONDANSETRON 4 MG/2 ML VIAL IVP PRN (08:40)
[2024-06-18 08:45] LABS: Glucose,Whole Blood 184 mg/dL (70-110)
--- NOTE | 2024-06-18 08:56 | FL ---
EXAMINATION TYPE: FL guidance operating room, XR Hip Limited RT DATE OF EXAM: 06/18/2024 8:46 AM COMPARISON: Pre Operative Images if available both CT/MRI or plain film CLINICAL INDICATION: Female, 83 years old with history of RT ANTERIOR HIP; TECHNIQUE: FL guidance operating room, XR Hip Limited RT, multiple fluoroscopic images provided for p rocedure. Total fluoroscopy time: 36.9 seconds Total submitted images to PACS: 5 DAP: [id number] mGym2 Gycm2 uGym2 cGycm2 or equivalent. FINDINGS: Fluoroscopic images during internal fixation/arthroplasty demonstrate hardware in appropriate positio n. Hardware appears intact. No immediate complication identified. IMPRESSION: 1. No evidence for intraoperative complication. 2. Please see the operative/procedural note for further details. [facility], , 06/18/2024 8:54 AM
[2024-06-18] MEDS: HYDROmorphone 0.5 MG/0.5 ML SYRINGE IVP PRN (09:11)
--- NOTE | 2024-06-18 09:20 | XR ---
EXAMINATION TYPE: XR Hip Limited RT DATE OF EXAM: 06/18/2024 9:05 AM COMPARISON: CLINICAL INDICATION: Female, 83 years old with history of Status post hip surgery, assess surgical al ignment; PHH, pain TECHNIQUE: XR Hip Limited RT; Frontal view None FINDINGS: Post arthroplasty changes, hardware is intact, alignment is appropriate. No evidence of fra cture. Postoperative changes of the soft tissues with subcutaneous gas. No evidence of any acute osse ous pathology or joint dislocation. IMPRESSION: Hip arthroplasty with hardware intact and in appropriate alignment. No acute fracture. [facility], , 06/18/2024 9:18 AM
[2024-06-18] MEDS: LACTATED RINGERS 500 ML IV ONE (09:52)
--- NOTE | 2024-06-18 09:56 | P.ANPRN ---
Procedure Note - Anesthesia - Nerve Block Performed Right Tony Single Time Out Performed: Yes ([id number]) Date of Procedure: 06/18/24 Location of Patient: PreOp Indication: Acute Post-Operative Pain, Dx/Pain Location (right hip), Requested by Surgeon Specifically requested for management of pain by DrDiana: Gregory Hicks Sedation Type: Sedate with meaningful contact maintained Preparation: Sterile Prep Position: Supine Catheter: None Needle Types: Pajunk Needle Gauge: 21 Ultrasound used to visualize needle placement: Yes Ultrasound used to observe medication spread: Yes Injectate: 0.5% Ropivacaine (see comment for volume) (30 mL +10 mL of normal saline) Blood Aspirated: No Pain Paresthesia on Injection Noted: No Resistance on Injection: Normal Image Stored and Saved: Yes Events: Uneventful and Well Tolerated
[2024-06-18] MEDS: MORPHINE SULFATE 4 MG/ML SYRINGE IVP STA (09:59)
[2024-06-18] MEDS: HYDROcodone/APAP 7.5-325MG 1 EACH TAB PO PRN (15:11)
[2024-06-18] MEDS: SODIUM CHLORIDE 0.9% 1,000 ML IV SCH (15:31)
[2024-06-18] MEDS: MORPHINE SULFATE 2 MG/ML SYRINGE IVP STA (15:32)
[2024-06-18] MEDS ORDERED: ONDANSETRON 4 MG TAB PO PRN (15:50)
[2024-06-18] MEDS: SENNOSIDES-DOCUSATE SODIUM 1 EACH TAB PO SCH (19:52)
[2024-06-18] MEDS: FAMOTIDINE 20 MG TAB PO SCH (19:52)
[2024-06-18] MEDS: ASPIRIN 325 MG TAB PO SCH (19:52)
[2024-06-18 20:33] LABS: Glucose,Whole Blood 143 mg/dL (70-110)
--- NOTE | 2024-06-19 00:43 | HP ---
HISTORY AND PHYSICAL CHIEF COMPLAINT: Arthritis of the right hip. HISTORY OF PRESENT ILLNESS: This is the first known admission for this 83-year-old otherwise healthy female. She has right hip pain, has been enduring it for quite a while, and finally has decided that she can't go any longer and she has come in for an elective right hip replacement. She has a history of hypertension and hyperlipidemia, but otherwise she is quite healthy. REVIEW OF SYSTEMS: She has had no neurologic problems, headache, chest pain, shortness of breath, heart disease, orthopnea, PND, abdominal pain, nausea, vomiting, hematemesis, melena, hematochezia, jaundice, hepatitis, cirrhosis, renal failure, incontinence, dysuria, hematuria, or diabetes. Past medical history, family history, personal and social histories reveal that she cannot take penicillins. She has had difficulty with an old drug in the past called Niaspan. CURRENT MEDICATIONS: Include, 1. [place]. 2. Atorvastatin. 3. BuSpar. 4. Tenoretic. 5. Meclizine for dizziness. The remainder of her history is unremarkable. She does not smoke. PHYSICAL EXAMINATION: VITAL SIGNS: Blood pressure is 140/80 with a pulse of 89 and regular, respirations of 18 and she is afebrile. GENERAL: She appeared to be well developed, well nourished, well kempt, and in no acute distress. HEAD, EARS, EYES, NOSE, MOUTH AND THROAT: Normal. NECK: Neck veins are not distended. Thyroid is not enlarged. CHEST: Clear. CARDIAC: Normal sinus rhythm. ABDOMEN: Soft, nontender. EXTREMITIES: Normal except for the right hip. NEUROLOGICAL: She is intact. IMPRESSION: She is admitted to the hospital with diagnoses of, 1. Osteoarthritis of the right hip. 2. History of hypertension. 3. History of hyperlipidemia. RECOMMENDATIONS: None. MMODL / IJN: [id number] /
[2024-06-19 06:13] LABS: Glucose,Whole Blood 105 mg/dL (70-110)
[2024-06-19] MEDS: HYDROcodone/APAP 7.5-325MG 1 EACH TAB PO PRN (06:22)
[2024-06-19 08:17] VITALS: BP 148/82; PULSE 94; RESP 18; TEMP 98.2
[2024-06-19 09:47] LABS: Basophils # (A) 0.01 X 10*3/uL (0.00-0.10); Basophils % (A) 0.1 %; Eosinophils # (A) 0.01 X 10*3/uL (0.04-0.35); Eosinophils % (A) 0.1 %; HCT 24.2 % (37.2-46.3); HGB 7.7 g/dL (12.0-15.0); Lymphocytes # (A) 1.61 X 10*3/uL (0.90-5.00); Lymphocytes % (A) 20.2 %; MCH 27.5 pg (27.0-32.0); MCHC 31.8 g/dL (32.0-37.0); MCV 86.4 FL (80.0-97.0); Mean Platelet Volume 9.8 FL (9.5-12.2); Monocytes # (A) 0.97 X 10*3/uL (0.20-1.00); Monocytes % (A) 12.2 %; NRBC Per 100 WBC 0 X 10*3/uL (0.00-0.01); Neutrophils # (A) 5.34 X 10*3/uL (1.80-7.70); Neutrophils % (A) 66.9 %; Platelet Count 257 X 10*3/uL (140-440); RDW 13.7 % (11.5-14.5); WBC 7.98 X 10*3/uL (4.50-10.00)
--- NOTE | 2024-06-19 22:19 | PN ---
PROGRESS NOTE DATE OF SERVICE: 06/19/2024 CHIEF COMPLAINT: Status post hip replacement. HISTORY OF PRESENT ILLNESS: This lady is doing well and is not having a great deal of pain and expects to go home today. Her hemoglobin is slightly low at 7.7. She is having no chest pain or shortness of breath. She is not nauseated. She is urinating and passing gas. PHYSICAL EXAMINATION: VITAL SIGNS: Normal. CHEST: Clear. CARDIAC: Normal. ABDOMEN: Soft, nontender. IMPRESSION: 1. Hip replacement. 2. Anemia. PLAN: Probably home today. MMODL / IJN: [id number] /
== END 2024-06-19 10:58 | disposition home health service (06) ==
LOC: OR 05:37 → 4SSUR 14:36 → OR 06-19 10:58
PROVIDERS: ATTEND Orthopaedic Surgery
DX: M16.11 Unilateral primary osteoarthritis, right hip (principal); I10 Essential (primary) hypertension; E78.5 Hyperlipidemia, unspecified; Z88.0 Allergy status to penicillin; Z79.02 Long term (current) use of antithrombotics/antiplatelets; Z79.899 Other long term (current) drug therapy
CPT/HCPCS: 97161; 97166; 64999; 85025; 73501; 27130; 64447; C1776; J2250; J2270; J1100; J0690 ×2; J2405; J2795; J1171